=== PATIENT | female | born 1975 | race Two or more races ===

== ENCOUNTER 2018-10-06 13:20 | Emergency (ER) | payer MEDICAID ==
[~2018-10-06] VITALS: Ht 160 cm; Wt 88.5 kg
[~2018-10-06 13:20] MED LIST: ASP81EC PO; FERR-20 PO
[2018-10-06 13:49] VITALS: BP 149/86
== END 2018-10-06 15:41 | disposition home or self-care (01) ==
LOC: ER 13:26
DX: N84.3 Polyp of vulva (principal); L98.8 Other specified disorders of the skin and subcutaneous tissue

== ENCOUNTER 2019-02-02 14:17 | Emergency (ER) | payer MEDICAID ==
[~2019-02-02] VITALS: Ht 160 cm; Wt 135.2 kg
[2019-02-02 15:30] LABS: Basophils # (auto) 0.1 uL; Basophils % (auto) 0.9 % (0.0-2.0); Eosinophils # (auto) 0 uL; Eosinophils % (auto) 0.1 % (0.0-7.0); Hematocrit 47.3 % (36.0-46.0); Hemoglobin 16.1 g/dL (12.2-16.2); Lymphocytes % (auto) 12.4 % (10.0-50.0); Mean Corpuscular Hemoglobin 29.1 pg (28.0-32.0); Mean Corpuscular Hgb Conc. 34.1 g/dL (32.0-36.0); Mean Corpuscular Volume 85.3 fL (80.0-100.0); Monocytes # (auto) 0.4 uL; Monocytes % (auto) 4.7 % (0.0-12.0); Neutrophils # (auto) 6.5 uL; Neutrophils % (auto) 81.9 % (37.0-80.0); Nucleated Red Blood Cells % 0.2 %; Platelet Count (auto) 361 10^3/uL (140-450); Red Blood Cells 5.54 10^6/uL (4.0-5.20); Red Cell Distribution Width 14.2 % (11.8-14.3)
[2019-02-02] MEDS ORDERED: SODIUM CHLORIDE 0.9% 1,000 ML IV ONE (15:30)
[2019-02-02] MEDS ORDERED: ONDANSETRON HCL 4 MG/2 ML VIAL IV ONE (15:30)
[2019-02-02] MEDS ORDERED: MORPHINE SULFATE 4 MG/ML SYR/VIAL IV ONE (15:30)
[2019-02-02 15:41] LABS: Calcium 8.6 mg/dL (8.5-10.1); Potassium 3.6 mmol/L (3.5-5.1)
[2019-02-02 15:43] LABS: BUN/Creatinine Ratio 11.3
[2019-02-02 15:45] LABS: Bilirubin, Total 0.4 mg/dL (0.2-1.0); Total Protein 8.5 g/dL (6.4-8.2)
[2019-02-02 17:42] VITALS: BP 132/70
== END 2019-02-02 19:33 | disposition home or self-care (01) ==
LOC: EDUNIT# 14:17 → ER 14:17
DX: N20.0 Calculus of kidney (principal); K80.20 Calculus of gallbladder without cholecystitis without obstruction; Z79.82 Long term (current) use of aspirin; Z79.899 Other long term (current) drug therapy
CPT/HCPCS: 36415; 74176; 76705; 80053; 85025; 94761; 96374; 96375; 99284; J2270; J2405; J7030

== ENCOUNTER 2019-02-13 11:54 | Emergency (ER) | payer MEDICAID ==
[~2019-02-13] VITALS: Ht 160 cm; Wt 104.3 kg
[2019-02-13] MEDS ORDERED: ACETAMINOPHEN/CODEINE#3 (300/30mg) TAB PO ONE (14:45)
[2019-02-13 15:24] LABS: Urine Bacteria FEW /hpf (None Seen); Urine Blood 1+ /uL (Negative); Urine Mucus FEW (None Seen); Urine Specific Gravity 1.022 (1.001-1.035); Urine WBC 144 /hpf (0 - 5)
[2019-02-13 16:21] VITALS: BP 123/79
== END 2019-02-13 16:22 | disposition home or self-care (01) ==
LOC: ER 11:54
DX: N39.0 Urinary tract infection, site not specified (principal); M77.32 Calcaneal spur, left foot; Z87.442 Personal history of urinary calculi
CPT/HCPCS: 73630; 81001; 81025

== ENCOUNTER 2019-05-31 22:48 | Emergency (ER) | payer MEDICAID ==
[~2019-05-31] VITALS: Ht 160 cm; Wt 92.1 kg
[2019-06-01 03:06] VITALS: BP 155/84
[2019-06-01] MEDS ORDERED: DexAMETHasone SOD PHOS 10MG/1ML VIAL INJ IM ONE (03:45)
[2019-06-01] MEDS ORDERED: cefTRIAXone SOD 1,000 MG VL IM ONE (03:45)
[2019-06-01] MEDS ORDERED: HYDROcodone-ACET 10/325MG TAB PO ONE (03:45)
== END 2019-06-01 04:27 | disposition home or self-care (01) ==
LOC: ER 22:50
DX: J06.9 Acute upper respiratory infection, unspecified (principal); M54.6 Pain in thoracic spine; Z87.442 Personal history of urinary calculi
CPT/HCPCS: 72128; 96372; 99284; J0696; J1100

== ENCOUNTER 2019-06-11 14:04 | Emergency (ER) | payer MEDICAID ==
[~2019-06-11] VITALS: Ht 160 cm; Wt 85.3 kg
[2019-06-11 15:06] VITALS: BP 114/73
[2019-06-11] MEDS ORDERED: diphenhdrAMINE HCL 25 MG CAP PO ONE (17:00)
--- NOTE | 2019-06-11 18:18 | NUR ---
PT DISCHARGED FROM FAST TRACK. NO SIGNS OF DISTRESS NOTED AT TIME OF DISCHARGE.
== END 2019-06-11 17:28 | disposition home or self-care (01) ==
LOC: ER 14:04
DX: L25.9 Unspecified contact dermatitis, unspecified cause (principal); Z90.49 Acquired absence of other specified parts of digestive tract

== ENCOUNTER 2019-07-12 21:29 | Emergency (ER) | payer MEDICAID ==
[~2019-07-12] VITALS: Ht 160 cm; Wt 77.1 kg
[2019-07-12 21:46] VITALS: BP 147/87
[2019-07-13] MEDS ORDERED: ACETAMINOPHEN/CODEINE#3 (300/30mg) TAB PO ONE (00:30)
== END 2019-07-13 00:49 | disposition home or self-care (01) ==
LOC: ER 21:29
DX: S80.812A Abrasion, left lower leg, initial encounter (principal); M79.18 Myalgia, other site; Z79.82 Long term (current) use of aspirin; Z79.899 Other long term (current) drug therapy; Z87.442 Personal history of urinary calculi; Z90.49 Acquired absence of other specified parts of digestive tract; W01.0XXA Fall on same level from slipping, tripping and stumbling without subsequent striking against object, initial encounter; Y93.89 Activity, other specified; Y92.89 Other specified places as the place of occurrence of the external cause; Y99.8 Other external cause status
CPT/HCPCS: 71045; 73590

== ENCOUNTER 2019-09-06 23:49 | Emergency (ER) | payer MEDICAID ==
[~2019-09-06] VITALS: Ht 160 cm; Wt 81.6 kg
[2019-09-07] MEDS ORDERED: methylPREDNISolone SOD SUCC 125 MG/2 ML VL IM ONE (00:15)
[2019-09-07] MEDS ORDERED: ALBUTEROL SULF 2.5 MG/0.5ML(0.5%) NEB SOLN NEB ONE ×2 (00:15→00:45)
[2019-09-07] MEDS ORDERED: IPRATROPIUM BROM 0.5 MG/2.5ML INH SOL NEB ONE ×2 (00:15→00:45)
[2019-09-07 01:40] VITALS: BP 125/75
[2019-09-07] MEDS ORDERED: PRE1T PO (17:21)
[2019-09-07] MEDS ORDERED: ALBU2TAB4 INH (17:21)
== END 2019-09-07 01:42 | disposition home or self-care (01) ==
LOC: ER 23:52
DX: J45.901 Unspecified asthma with (acute) exacerbation (principal); Z90.49 Acquired absence of other specified parts of digestive tract; Z87.442 Personal history of urinary calculi
CPT/HCPCS: 94640; 96372; 99284; J2930; J7644

== ENCOUNTER 2019-09-07 13:42 | Inpatient (IN) | payer MEDICAID ==
[~2019-09-07] VITALS: Ht 160 cm; Wt 85.8 kg
[2019-09-07] MEDS ORDERED: ALBUTEROL SULF 2.5 MG/0.5ML(0.5%) NEB SOLN HHN ONE (14:30)
[2019-09-07] MEDS ORDERED: methylPREDNISolone SOD SUCC 125 MG/2 ML VL IV ONE (14:30)
[2019-09-07] MEDS ORDERED: IPRATROPIUM BROM 0.5 MG/2.5ML INH SOL HHN ONE (14:30)
[2019-09-07] MEDS ORDERED: DOXYCYCLINE 100MG/250ML 250 ML IV ONE (14:45)
[2019-09-07] MEDS ORDERED: TEMAZEPAM 15 MG CAP PO PRN (15:15)
[2019-09-07] MEDS ORDERED: PROMETHAZINE HCL 25 MG/ML 1ML IV PRN (15:15)
[2019-09-07] MEDS ORDERED: ALBUTEROL SULF 2.5 MG/0.5ML(0.5%) NEB SOLN NEB PRN (15:15)
[2019-09-07] MEDS ORDERED: NITROGLYCERIN 0.4 MG SL TAB SL PRN (15:15)
[2019-09-07] MEDS ORDERED: DOXYCYCLINE 100MG/250ML 250 ML IV SCH (15:15)
[2019-09-07] MEDS ORDERED: MORPHINE SULF INJ 2 MG/ML SYRINGE 1ML IV PRN (15:15)
[2019-09-07] MEDS ORDERED: LACTULOSE 20Gm/30ML SOLN PO PRN (15:15)
[2019-09-07] MEDS ORDERED: ACETAMINOPHEN 500 MG TAB PO PRN (15:15)
[2019-09-07 15:20] LABS: Hematocrit 43.2 % (36.0-46.0); Hemoglobin 14.2 g/dL (12.2-16.2); Mean Corpuscular Hemoglobin 28.3 pg (28.0-32.0); Mean Corpuscular Hgb Conc. 32.8 g/dL (32.0-36.0); Mean Corpuscular Volume 86.2 fL (80.0-100.0); Platelet Count (auto) 347 10^3/uL (140-450); Red Blood Cells 5.01 10^6/uL (4.0-5.20); Red Cell Distribution Width 14.2 % (11.8-14.3); White Blood Cell 16.3 10^3/uL (4.4-10.8)
[2019-09-07 15:22] LABS: Band Neutrophils % (manual) 0; Basophils % (manual) 0 (0.0-2.0); Blast Cells 0; Eosinophils % (manual) 0 (0-7); Metamyelocytes % 0; Myelocytes % 0; Promyelocytes % 0; Reactive Lymphocytes 0
[2019-09-07 15:23] LABS: Albumin 3.5 g/dL (3.4-5.0); Calcium 8.8 mg/dL (8.5-10.1); Potassium 3.7 mmol/L (3.5-5.1)
[2019-09-07 15:26] LABS: Lactic Acid w/Reflex 2.9 mmol/L (0.4-2.0)
[2019-09-07 15:27] LABS: BUN/Creatinine Ratio 13.6; Bilirubin, Total 0.4 mg/dL (0.2-1.0); CRP High Sensitivity 0.37 mg/dL (< 0.3); Total Protein 7.9 g/dL (6.4-8.2)
[2019-09-07 15:33] LABS: Lymphocytes % (manual) 7 (10.0-50.0); Monocytes % (manual) 3 (0-12)
[2019-09-07] MEDS ORDERED: ALBU2TAB4 INH (17:21)
[2019-09-07] MEDS ORDERED: PRE1T PO (17:21)
[2019-09-07 17:26] VITALS: BP 119/81
[2019-09-07] MEDS ORDERED: IPRATROPIUM BROM 0.5 MG/2.5ML INH SOL NEB SCH (18:00)
[2019-09-07] MEDS ORDERED: ALBUTEROL SULF 2.5 MG/0.5ML(0.5%) NEB SOLN NEB SCH (18:00)
[2019-09-07 19:46] VITALS: BP 119/81
[2019-09-07] MEDS: SODIUM CHLOR 0.9% PF (SALINE LOCK) 10ML VIAL/SYR IV SCH (22:23)
[2019-09-07] MEDS: DOXYCYCLINE 100MG/250ML 250 ML IV SCH (22:24)
[2019-09-07] MEDS: methylPREDNISolone SOD SUCC 40 MG/ML VL IV SCH (22:24)
[2019-09-07] MEDS: ALBUTEROL SULF HFA 90MCG INH 200DOSE IN SCH (22:27)
[2019-09-08] MEDS: SODIUM CHLORIDE 0.9% 1,000 ML IV SCH ×3 (00:15→20:15)
[2019-09-08] MEDS: traMADol HCL 50 MG TAB PO PRN ×3 (01:24→21:03)
[2019-09-08] MEDS: guaiFENesin-DM 100/10mg/5ml SYR PO PRN ×3 (01:25→19:29)
[2019-09-08 04:00] VITALS: BP 110/60
[2019-09-08 05:00] VITALS: BP 128/70
[2019-09-08] MEDS: SODIUM CHLOR 0.9% PF (SALINE LOCK) 10ML VIAL/SYR IV SCH (06:00)
[2019-09-08] MEDS: ALBUTEROL SULF HFA 90MCG INH 200DOSE IN SCH ×3 (06:58→22:14)
[2019-09-08 09:00] VITALS: BP 138/81
[2019-09-08] MEDS: DOXYCYCLINE 100MG/250ML 250 ML IV SCH ×2 (09:39→22:09)
[2019-09-08] MEDS: ENOXAPARIN SOD 40 MG/0.4 ML SYRINGE SC SCH (09:39)
[2019-09-08] MEDS: methylPREDNISolone SOD SUCC 40 MG/ML VL IV SCH ×2 (09:40→22:09)
[2019-09-08 14:23] LABS: Urine Bacteria NONE SEEN /hpf (None Seen); Urine Blood Negative /uL (Negative); Urine Mucus FEW (None Seen); Urine Specific Gravity 1.023 (1.001-1.035); Urine WBC 1 /hpf (0 - 5)
[2019-09-08] MEDS ORDERED: IOHEXOL 300 MG/ML 100ML BOTTLE IJ ONE (15:01)
[2019-09-08 15:08] LABS: Amphetamine Screen, Urine NEGATIVE (NEGATIVE); Barbiturate Scree,Urine NEGATIVE (NEGATIVE); Benzodiazephine Screen, Urine NEGATIVE (NEGATIVE); Cannabinoid Screen, Urine NEGATIVE (NEGATIVE); Cocaine Screen, Urine NEGATIVE (NEGATIVE); Opiate Scree,Urine NEGATIVE (NEGATIVE); Phencyclidine Screen, Urine NEGATIVE (NEGATIVE)
[2019-09-08 17:07] VITALS: BP 139/83
[2019-09-08 22:00] VITALS: BP 127/71
[2019-09-09] MEDS: SODIUM CHLORIDE 0.9% 1,000 ML IV SCH ×2 (04:18→16:15)
[2019-09-09 05:00] VITALS: BP 134/92
[2019-09-09 06:55] LABS: Basophils # (auto) 0 10 ^3/uL (0-0.2); Basophils % (auto) 0.1 % (0.0-2.0); Eosinophils # (auto) 0 10 ^3/uL (0-0.8); Hematocrit 45.3 % (36.0-46.0); Hemoglobin 15.1 g/dL (12.2-16.2); Lymphocytes # (auto) 0.9 10 ^3/uL (0.4-5.4); Lymphocytes % (auto) 8.7 % (10.0-50.0); Mean Corpuscular Hemoglobin 28.7 pg (28.0-32.0); Mean Corpuscular Hgb Conc. 33.3 g/dL (32.0-36.0); Mean Corpuscular Volume 86.3 fL (80.0-100.0); Monocytes # (auto) 0.2 10 ^3/uL (0-1.3); Monocytes % (auto) 1.7 % (0.0-12.0); Neutrophils # (auto) 9.4 10 ^3/uL (1.6-8.6); Neutrophils % (auto) 89.5 % (37.0-80.0); Nucleated Red Blood Cells % 0.1 %; Platelet Count (auto) 334 10^3/uL (140-450); Red Blood Cells 5.25 10^6/uL (4.0-5.20); Red Cell Distribution Width 14.4 % (11.8-14.3); White Blood Cell 10.5 10^3/uL (4.4-10.8)
[2019-09-09] MEDS: ALBUTEROL SULF HFA 90MCG INH 200DOSE IN SCH ×3 (07:09→22:15)
[2019-09-09 07:11] LABS: Calcium 8.1 mg/dL (8.5-10.1); Potassium 4.2 mmol/L (3.5-5.1)
[2019-09-09 07:24] LABS: BUN/Creatinine Ratio 21.2
[2019-09-09 08:57] VITALS: BP 137/74
[2019-09-09] MEDS: methylPREDNISolone SOD SUCC 40 MG/ML VL IV SCH ×2 (09:36→22:01)
[2019-09-09] MEDS: traMADol HCL 50 MG TAB PO PRN ×2 (09:36→19:48)
[2019-09-09] MEDS: PANTOPRAZOLE 40 MG TAB PO SCH (09:36)
[2019-09-09] MEDS: LORATADINE 10 MG TAB PO SCH (09:36)
[2019-09-09] MEDS: DOXYCYCLINE 100MG/250ML 250 ML IV SCH ×2 (09:37→22:01)
[2019-09-09] MEDS: ENOXAPARIN SOD 40 MG/0.4 ML SYRINGE SC SCH (09:37)
[2019-09-09 13:00] VITALS: BP 138/97
[2019-09-09 16:48] VITALS: BP 136/83
[2019-09-09 21:19] VITALS: BP 133/90
[2019-09-09] MEDS: guaiFENesin-DM 100/10mg/5ml SYR PO PRN (22:02)
[2019-09-10] VITALS (7 sets, daily range): BP systolic 132–161; BP diastolic 78–108
[2019-09-10] MEDS: SODIUM CHLORIDE 0.9% 1,000 ML IV SCH (02:41)
[2019-09-10] MEDS: ALBUTEROL SULF HFA 90MCG INH 200DOSE IN SCH (06:05)
[2019-09-10] MEDS: ENOXAPARIN SOD 40 MG/0.4 ML SYRINGE SC SCH (09:12)
[2019-09-10] MEDS: LORATADINE 10 MG TAB PO SCH (09:12)
[2019-09-10] MEDS: PANTOPRAZOLE 40 MG TAB PO SCH (09:12)
[2019-09-10] MEDS: methylPREDNISolone SOD SUCC 40 MG/ML VL IV SCH ×2 (09:12→17:37)
[2019-09-10] MEDS: DOXYCYCLINE 100MG/250ML 250 ML IV SCH (09:13)
[2019-09-10] MEDS: guaiFENesin-DM 100/10mg/5ml SYR PO PRN (09:13)
[2019-09-10] MEDS: traMADol HCL 50 MG TAB PO PRN (12:15)
[2019-09-10] MEDS ORDERED: ALBUTEROL SULF 2.5 MG/0.5ML(0.5%) NEB SOLN NEB ONE (12:45)
[2019-09-10] MEDS ORDERED: IPRATROPIUM BROM 0.5 MG/2.5ML INH SOL NEB ONE (12:45)
[2019-09-10] MEDS ORDERED: hydrALAZINE HCL 20 MG/ML VL IV PRN (17:15)
[2019-09-10] MEDS ORDERED: ACETYLCYSTEINE 10 %(100MG/ML) SOL 4ML NEB SCH (18:00)
[2019-09-10] MEDS ORDERED: diphenhdrAMINE HCL 50 MG/1 ML VL IV ONE (18:45)
[2019-09-10] MEDS ORDERED: FAMOTIDINE (10MG/ML) 2ML VL IV ONE (18:45)
[2019-09-10] MEDS: ACETYLCYSTEINE 10 %(100MG/ML) SOL 4ML NEB SCH (19:02)
[2019-09-10] MEDS: ALBUTEROL SULF 2.5 MG/0.5ML(0.5%) NEB SOLN NEB SCH (19:02)
[2019-09-10] MEDS: IPRATROPIUM BROM 0.5 MG/2.5ML INH SOL NEB SCH (19:02)
[2019-09-10] MEDS: BUDESONIDE (INHALATION) 0.5 MG/2 ML NEB NEB SCH (19:02)
[2019-09-10] MEDS: DOXYCYCLINE 100 MG TAB/CAP PO SCH (21:25)
[2019-09-11] VITALS (7 sets, daily range): BP systolic 123–137; BP diastolic 75–86
[2019-09-11] MEDS: methylPREDNISolone SOD SUCC 40 MG/ML VL IV SCH ×5 (00:15→23:26)
[2019-09-11] MEDS: ALBUTEROL SULF 2.5 MG/0.5ML(0.5%) NEB SOLN NEB SCH ×5 (00:53→23:58)
[2019-09-11] MEDS: IPRATROPIUM BROM 0.5 MG/2.5ML INH SOL NEB SCH ×5 (00:54→23:58)
[2019-09-11] MEDS: ACETYLCYSTEINE 10 %(100MG/ML) SOL 4ML NEB SCH ×5 (00:54→23:59)
[2019-09-11] MEDS: traMADol HCL 50 MG TAB PO PRN ×2 (05:43→20:40)
[2019-09-11] MEDS: BUDESONIDE (INHALATION) 0.5 MG/2 ML NEB NEB SCH ×2 (05:52→18:27)
[2019-09-11] MEDS: ENOXAPARIN SOD 40 MG/0.4 ML SYRINGE SC SCH (09:38)
[2019-09-11] MEDS: DOXYCYCLINE 100 MG TAB/CAP PO SCH ×2 (09:38→21:28)
[2019-09-11] MEDS: LORATADINE 10 MG TAB PO SCH (09:38)
[2019-09-11] MEDS: PANTOPRAZOLE 40 MG TAB PO SCH (09:38)
[2019-09-12 05:00] VITALS: BP 118/74
[2019-09-12] MEDS: methylPREDNISolone SOD SUCC 40 MG/ML VL IV SCH ×3 (05:46→17:09)
[2019-09-12] MEDS: BUDESONIDE (INHALATION) 0.5 MG/2 ML NEB NEB SCH ×2 (07:13→18:28)
[2019-09-12] MEDS: IPRATROPIUM BROM 0.5 MG/2.5ML INH SOL NEB SCH ×3 (07:13→18:28)
[2019-09-12] MEDS: ALBUTEROL SULF 2.5 MG/0.5ML(0.5%) NEB SOLN NEB SCH ×3 (07:13→18:28)
[2019-09-12] MEDS: ACETYLCYSTEINE 10 %(100MG/ML) SOL 4ML NEB SCH ×3 (07:13→18:27)
[2019-09-12 08:00] VITALS: BP 143/59
[2019-09-12] MEDS: ENOXAPARIN SOD 40 MG/0.4 ML SYRINGE SC SCH (09:34)
[2019-09-12] MEDS: PANTOPRAZOLE 40 MG TAB PO SCH (09:34)
[2019-09-12] MEDS: LORATADINE 10 MG TAB PO SCH (09:34)
[2019-09-12] MEDS: DOXYCYCLINE 100 MG TAB/CAP PO SCH ×2 (09:34→22:13)
[2019-09-12] MEDS ORDERED: guaiFENesin 200 MG/10 ML UD PO PRN (11:30)
[2019-09-12] MEDS: guaiFENesin-DM 100/10mg/5ml SYR PO PRN (11:56)
[2019-09-12 12:00] VITALS: BP 138/95
[2019-09-12 17:00] VITALS: BP 137/64
[2019-09-12 20:20] VITALS: BP 141/99
[2019-09-12 22:00] VITALS: BP 141/99
[2019-09-13] MEDS: ACETYLCYSTEINE 10 %(100MG/ML) SOL 4ML NEB SCH ×4 (00:27→19:40)
[2019-09-13] MEDS: IPRATROPIUM BROM 0.5 MG/2.5ML INH SOL NEB SCH ×4 (00:27→19:40)
[2019-09-13] MEDS: ALBUTEROL SULF 2.5 MG/0.5ML(0.5%) NEB SOLN NEB SCH ×4 (00:27→19:41)
[2019-09-13] MEDS: methylPREDNISolone SOD SUCC 40 MG/ML VL IV SCH ×4 (01:06→21:53)
[2019-09-13 05:30] VITALS: BP 120/87
[2019-09-13 08:00] VITALS: BP 136/89
[2019-09-13] MEDS: BUDESONIDE (INHALATION) 0.5 MG/2 ML NEB NEB SCH ×2 (08:28→19:40)
[2019-09-13] MEDS: traMADol HCL 50 MG TAB PO PRN (09:47)
[2019-09-13] MEDS: DOXYCYCLINE 100 MG TAB/CAP PO SCH (09:47)
[2019-09-13] MEDS: PANTOPRAZOLE 40 MG TAB PO SCH (09:47)
[2019-09-13] MEDS: LORATADINE 10 MG TAB PO SCH (09:47)
[2019-09-13] MEDS: ENOXAPARIN SOD 40 MG/0.4 ML SYRINGE SC SCH (09:47)
[2019-09-13 12:00] VITALS: BP 121/74
[2019-09-13 17:01] VITALS: BP 146/89
[2019-09-13 17:59] VITALS: BP 146/89
[2019-09-13 22:00] VITALS: BP 138/92
[2019-09-14] MEDS: IPRATROPIUM BROM 0.5 MG/2.5ML INH SOL NEB SCH ×4 (00:48→18:09)
[2019-09-14] MEDS: ALBUTEROL SULF 2.5 MG/0.5ML(0.5%) NEB SOLN NEB SCH ×4 (00:48→18:09)
[2019-09-14] MEDS: ACETYLCYSTEINE 10 %(100MG/ML) SOL 4ML NEB SCH ×4 (00:48→18:09)
[2019-09-14 05:00] VITALS: BP 102/73
[2019-09-14] MEDS: methylPREDNISolone SOD SUCC 40 MG/ML VL IV SCH ×2 (06:31→16:10)
[2019-09-14] MEDS: BUDESONIDE (INHALATION) 0.5 MG/2 ML NEB NEB SCH ×2 (07:13→18:09)
[2019-09-14 08:00] VITALS: BP 137/73
[2019-09-14 09:00] VITALS: BP 137/73
[2019-09-14] MEDS: LORATADINE 10 MG TAB PO SCH (10:21)
[2019-09-14] MEDS: PANTOPRAZOLE 40 MG TAB PO SCH (10:21)
[2019-09-14] MEDS: ENOXAPARIN SOD 40 MG/0.4 ML SYRINGE SC SCH (10:21)
[2019-09-14 14:00] VITALS: BP 128/92
[2019-09-14 17:00] VITALS: BP 122/67
[2019-09-14 17:54] VITALS: BP 122/80
== END 2019-09-14 18:45 | disposition home or self-care (01) | DRG 720 ==
LOC: ER 13:42 → TELE 13:43 → TELE-EAST 16:55 → TELE-CENTR 09-08 16:49
PROVIDERS: ADMIT Internal Medicine; ATTEND Internal Medicine
DX: A41.9 Sepsis, unspecified organism (principal); J96.00 Acute respiratory failure, unspecified whether with hypoxia or hypercapnia; J45.901 Unspecified asthma with (acute) exacerbation; E66.9 Obesity, unspecified; Z83.3 Family history of diabetes mellitus; Z87.442 Personal history of urinary calculi; Z90.49 Acquired absence of other specified parts of digestive tract; Z87.74 Personal history of (corrected) congenital malformations of heart and circulatory system; Z79.82 Long term (current) use of aspirin; Z79.899 Other long term (current) drug therapy; Z03.818 Encounter for observation for suspected exposure to other biological agents ruled out; Z68.34 Body mass index [BMI] 34.0-34.9, adult
CPT/HCPCS: 36415; 71045; 71046; 71260; 80048; 80053; 80307; 81001; 82550; 82728; 83036; 83605; 83735; 83880; 84439; 84443; 84484; 85007; 85025; 85027; 85379; 85652; 86141; 87040; 87070; 87804; 87880; 93005; 93306; 94640; 94644; 96365; 96366; 96375; G0378; J3490

== ENCOUNTER 2019-10-22 23:41 | Inpatient (IN) | payer MEDICAID ==
[~2019-10-22] VITALS: Ht 157.5 cm; Wt 91.9 kg
[~2019-10-22 23:41] MED LIST changes: +ALBU2TAB4 INH; +PRE1T PO
[2019-10-23 01:47] LABS: Basophils # (auto) 0.1 10 ^3/uL (0-0.2); Basophils % (auto) 0.6 % (0.0-2.0); Eosinophils # (auto) 0.2 10 ^3/uL (0-0.8); Eosinophils % (auto) 1.6 % (0.0-7.0); Hematocrit 43.4 % (36.0-46.0); Hemoglobin 14.6 g/dL (12.2-16.2); Lymphocytes # (auto) 1.9 10 ^3/uL (0.4-5.4); Lymphocytes % (auto) 15.1 % (10.0-50.0); Mean Corpuscular Hemoglobin 28.6 pg (28.0-32.0); Mean Corpuscular Hgb Conc. 33.6 g/dL (32.0-36.0); Mean Corpuscular Volume 84.9 fL (80.0-100.0); Monocytes # (auto) 0.9 10 ^3/uL (0-1.3); Monocytes % (auto) 7.2 % (0.0-12.0); Neutrophils # (auto) 9.5 10 ^3/uL (1.6-8.6); Neutrophils % (auto) 75.5 % (37.0-80.0); Platelet Count (auto) 336 10^3/uL (140-450); Red Blood Cells 5.12 10^6/uL (4.0-5.20); Red Cell Distribution Width 13.9 % (11.8-14.3); White Blood Cell 12.6 10^3/uL (4.4-10.8)
[2019-10-23 01:53] LABS: Urine Bacteria FEW /hpf (None Seen); Urine Blood 2+ /uL (Negative); Urine Specific Gravity 1.017 (1.001-1.035); Urine WBC 2 /hpf (0 - 5)
[2019-10-23 02:05] LABS: Albumin 3.6 g/dL (3.4-5.0); Calcium 8.6 mg/dL (8.5-10.1); Potassium 4.2 mmol/L (3.5-5.1)
[2019-10-23 02:06] LABS: BUN/Creatinine Ratio 27.6
[2019-10-23 02:09] LABS: Bilirubin, Total 0.5 mg/dL (0.2-1.0); Total Protein 7.7 g/dL (6.4-8.2)
[2019-10-23] MEDS ORDERED: ONDANSETRON HCL 4 MG/2 ML VIAL IV ONE (04:30)
[2019-10-23] MEDS ORDERED: SODIUM CHLORIDE 0.9% 1,000 ML IV ONE ×2 (04:30→06:45)
[2019-10-23] MEDS ORDERED: HYDROmorphone HCL 2 MG/ML VL IV ONE (04:30)
[2019-10-23] MEDS ORDERED: TAMSULOSIN HYDROCHLORIDE 0.4 MG CAP PO ONE (06:45)
[2019-10-23] MEDS ORDERED: KETOROLAC TROMETH 30 MG/ML 1ML VIAL IV ONE (07:30)
[2019-10-23] MEDS ORDERED: ONDANSETRON HCL 4 MG/2 ML VIAL ONE (09:00)
[2019-10-23] MEDS ORDERED: MORPHINE SULF INJ 2 MG/ML SYRINGE 1ML ONE (09:00)
[2019-10-23] MEDS: MORPHINE SULF INJ 2 MG/ML SYRINGE 1ML IV PRN (09:14)
[2019-10-23] MEDS ORDERED: NITROGLYCERIN 0.4 MG SL TAB SL PRN (09:15)
[2019-10-23] MEDS ORDERED: ACETAMINOPHEN 500 MG TAB PO PRN (09:15)
[2019-10-23] MEDS ORDERED: ONDANSETRON HCL 4 MG/2 ML VIAL IV PRN (09:15)
[2019-10-23] MEDS ORDERED: MORPHINE SULF INJ 2 MG/ML SYRINGE 1ML IV PRN (09:15)
[2019-10-23] MEDS ORDERED: HYDROcodone-ACET 5/325MG TAB PO PRN (09:15)
[2019-10-23] MEDS: SODIUM CHLORIDE 0.9% 1,000 ML IV SCH ×2 (09:16→17:23)
[2019-10-23] MEDS: FAMOTIDINE 20 MG TAB PO SCH (10:02)
[2019-10-23 11:23] VITALS: BP 140/70
[2019-10-23 13:00] VITALS: BP 129/67
[2019-10-23] MEDS ORDERED: MANNITOL FTV 25% 12.5 GM/50 ML 50 ML IV ONE (15:15)
[2019-10-23] MEDS: KETOROLAC TROMETH 30 MG/ML 1ML VIAL IV PRN (15:30)
[2019-10-23 16:55] VITALS: BP 141/80
[2019-10-23] MEDS: TAMSULOSIN HYDROCHLORIDE 0.4 MG CAP PO SCH (17:51)
[2019-10-23 22:00] VITALS: BP 144/72
[2019-10-24] MEDS: SODIUM CHLORIDE 0.9% 1,000 ML IV SCH ×4 (01:24→18:33)
[2019-10-24 05:07] VITALS: BP 125/63
[2019-10-24 06:30] LABS: Basophils # (auto) 0 10 ^3/uL (0-0.2); Basophils % (auto) 0.2 % (0.0-2.0); Eosinophils # (auto) 0.2 10 ^3/uL (0-0.8); Eosinophils % (auto) 2.6 % (0.0-7.0); Hematocrit 40.1 % (36.0-46.0); Hemoglobin 13.6 g/dL (12.2-16.2); Lymphocytes # (auto) 1.5 10 ^3/uL (0.4-5.4); Mean Corpuscular Hemoglobin 29.2 pg (28.0-32.0); Mean Corpuscular Hgb Conc. 33.9 g/dL (32.0-36.0); Mean Corpuscular Volume 85.9 fL (80.0-100.0); Monocytes # (auto) 0.6 10 ^3/uL (0-1.3); Monocytes % (auto) 7.4 % (0.0-12.0); Neutrophils # (auto) 5.4 10 ^3/uL (1.6-8.6); Neutrophils % (auto) 70.8 % (37.0-80.0); Nucleated Red Blood Cells % 0.1 %; Platelet Count (auto) 264 10^3/uL (140-450); Red Blood Cells 4.66 10^6/uL (4.0-5.20); Red Cell Distribution Width 14.1 % (11.8-14.3); White Blood Cell 7.7 10^3/uL (4.4-10.8)
[2019-10-24 06:36] LABS: Potassium 3.6 mmol/L (3.5-5.1)
[2019-10-24 06:41] LABS: BUN/Creatinine Ratio 16.2
[2019-10-24] MEDS: FAMOTIDINE 20 MG TAB PO SCH (08:53)
[2019-10-24] MEDS: cefTRIAXone 1GM/50ML D5W 50 ML IV SCH (08:53)
[2019-10-24] MEDS: KETOROLAC TROMETH 30 MG/ML 1ML VIAL IV PRN ×2 (08:54→14:40)
[2019-10-24 09:00] VITALS: BP 138/71
[2019-10-24 13:00] VITALS: BP 125/89
[2019-10-24 17:00] VITALS: BP 149/78
[2019-10-24] MEDS: MORPHINE SULF INJ 2 MG/ML SYRINGE 1ML IV PRN (17:27)
[2019-10-24] MEDS: TAMSULOSIN HYDROCHLORIDE 0.4 MG CAP PO SCH (17:27)
[2019-10-24 21:24] VITALS: BP 158/88
[2019-10-25 05:00] VITALS: BP 123/84
[2019-10-25] MEDS ORDERED: MANNITOL FTV 25% 12.5 GM/50 ML 50 ML IV ONE ×2 (06:00→09:00)
[2019-10-25 06:11] LABS: Calcium 8.1 mg/dL (8.5-10.1); Magnesium 2.2 mg/dL (1.6-2.6); Potassium 3.7 mmol/L (3.5-5.1)
[2019-10-25 06:16] LABS: BUN/Creatinine Ratio 13.6
[2019-10-25 08:00] VITALS: BP_SYST 134; BP_SYST 137; BP_DIAS 77; BP_DIAS 95
[2019-10-25] MEDS: cefTRIAXone 1GM/50ML D5W 50 ML IV SCH (10:13)
[2019-10-25] MEDS: FAMOTIDINE 20 MG TAB PO SCH (10:13)
[2019-10-25] MEDS: MORPHINE SULF INJ 2 MG/ML SYRINGE 1ML IV PRN ×3 (10:39→21:45)
[2019-10-25] MEDS: SODIUM CHLORIDE 0.9% 1,000 ML IV SCH ×2 (11:45→21:45)
[2019-10-25 12:00] VITALS: BP 128/87
[2019-10-25 16:54] VITALS: BP 147/85
[2019-10-25] MEDS: TAMSULOSIN HYDROCHLORIDE 0.4 MG CAP PO SCH (19:55)
[2019-10-25 21:52] VITALS: BP 135/81
[2019-10-26 06:18] VITALS: BP 130/67
[2019-10-26] MEDS: SODIUM CHLORIDE 0.9% 1,000 ML IV SCH (07:45)
[2019-10-26 09:00] VITALS: BP 128/84
[2019-10-26] MEDS: FAMOTIDINE 20 MG TAB PO SCH (09:40)
[2019-10-26] MEDS: cefTRIAXone 1GM/50ML D5W 50 ML IV SCH (09:41)
[2019-10-26 12:38] VITALS: BP 141/81
[2019-10-26 17:09] VITALS: BP 152/89
== END 2019-10-26 17:45 | disposition home or self-care (01) | DRG 465 ==
LOC: ER 23:43 → MERGE 23:44 → TELE 23:44 → WEST WING 10-23 10:36
PROVIDERS: ADMIT Nurse Practitioner Acute Care; ATTEND Internal Medicine
DX: N13.2 Hydronephrosis with renal and ureteral calculous obstruction (principal); I48.91 Unspecified atrial fibrillation; R65.10 Systemic inflammatory response syndrome (SIRS) of non-infectious origin without acute organ dysfunction; K76.0 Fatty (change of) liver, not elsewhere classified; E86.0 Dehydration; E66.9 Obesity, unspecified; J45.909 Unspecified asthma, uncomplicated; Z80.0 Family history of malignant neoplasm of digestive organs; Z87.442 Personal history of urinary calculi; Z90.49 Acquired absence of other specified parts of digestive tract; Z87.74 Personal history of (corrected) congenital malformations of heart and circulatory system; Z83.3 Family history of diabetes mellitus; Z68.37 Body mass index [BMI] 37.0-37.9, adult
CPT/HCPCS: 36415; 74018; 74176; 80048; 80053; 80061; 81001; 81025; 82360; 83036; 83735; 85025; 87086; 96361; 96374; 96375; 96376; G0378; J0696; J1885; J2405

== ENCOUNTER → 2019-12-03 | Emergency (ER) | payer MEDICAID ==
[~2019-12-03] VITALS: Ht 160 cm; Wt 91.2 kg
[~2019-12-03] MED LIST changes: +ALBUAER3 IN; -ASP81EC PO; +ASPI-394 PO; +IBUP200C95 PO; +KETOROLAC TROMETH 30 MG/ML 1ML VIAL IV ONE; +SODIUM CHLORIDE 0.9% 1,000 ML IV ONE
[2019-12-03 14:39] LABS: Basophils # (auto) 0 10 ^3/uL (0-0.2); Basophils % (auto) 0.3 % (0.0-2.0); Eosinophils # (auto) 0.1 10 ^3/uL (0-0.8); Eosinophils % (auto) 1.2 % (0.0-7.0); Hematocrit 48.6 % (36.0-46.0); Lymphocytes # (auto) 0.8 10 ^3/uL (0.4-5.4); Lymphocytes % (auto) 7.1 % (10.0-50.0); Mean Corpuscular Hemoglobin 28.3 pg (28.0-32.0); Mean Corpuscular Hgb Conc. 32.9 g/dL (32.0-36.0); Mean Corpuscular Volume 85.9 fL (80.0-100.0); Monocytes # (auto) 0.7 10 ^3/uL (0-1.3); Monocytes % (auto) 6.5 % (0.0-12.0); Neutrophils # (auto) 9.5 10 ^3/uL (1.6-8.6); Neutrophils % (auto) 84.9 % (37.0-80.0); Nucleated Red Blood Cells % 0.1 %; Platelet Count (auto) 380 10^3/uL (140-450); Red Blood Cells 5.66 10^6/uL (4.0-5.20); Red Cell Distribution Width 14.1 % (11.8-14.3); White Blood Cell 11.3 10^3/uL (4.4-10.8)
[2019-12-03 14:58] LABS: Alanine Aminotransferase 76 U/L (13-56); Albumin 3.6 g/dL (3.4-5.0); Anion Gap 9 (5-15); Aspartate Aminotransferase 37 U/L (15-37); BUN/Creatinine Ratio 11.6; Blood Urea Nitrogen 10 mg/dL (7-18); Calcium 8.5 mg/dL (8.5-10.1); Carbon Dioxide 22 mmol/L (21-32); Chloride 108 mmol/L (98-107); GFR African American 93 mL/min; GFR Non-African American 77 mL/min; Glucose 126 mg/dL (74-106); Potassium 3.6 mmol/L (3.5-5.1); Sodium 139 mmol/L (136-145)
[2019-12-03 15:03] LABS: Alkaline Phosphatase 95 U/L (45-117); Bilirubin, Total 0.6 mg/dL (0.2-1.0); Total Protein 8.3 g/dL (6.4-8.2)
[2019-12-03 16:20] VITALS: BP 126/75
== END | disposition home or self-care (01) ==
LOC: ER 13:16
DX: N20.0 Calculus of kidney (principal); D72.829 Elevated white blood cell count, unspecified; E86.0 Dehydration; D17.71 Benign lipomatous neoplasm of kidney; Z90.49 Acquired absence of other specified parts of digestive tract
CPT/HCPCS: 36415; 71045; 74176; 80053; 84484; 85025; 96361; 96374; 99285; J1885; J7030

== ENCOUNTER 2019-12-04 12:23 | Inpatient (IN) | payer MEDICAID ==
[~2019-12-04] VITALS: Ht 160 cm; Wt 87.0 kg
[~2019-12-04 12:23] MED LIST changes: -ALBUAER3 IN; -IBUP200C95 PO; -KETOROLAC TROMETH 30 MG/ML 1ML VIAL IV ONE; -SODIUM CHLORIDE 0.9% 1,000 ML IV ONE
[2019-12-04] MEDS ORDERED: SODIUM CHLORIDE 0.9% 1,000 ML IVB ONE (12:52)
[2019-12-04] MEDS ORDERED: MORPHINE SULFATE 4 MG/ML SYR/VIAL IV ONE (13:00)
[2019-12-04] MEDS ORDERED: KETOROLAC TROMETH 30 MG/ML 1ML VIAL IV ONE (13:00)
[2019-12-04] MEDS ORDERED: ONDANSETRON HCL 4 MG/2 ML VIAL IV ONE (13:00)
[2019-12-04 13:21] LABS: Basophils # (auto) 0 10 ^3/uL (0-0.2); Basophils % (auto) 0.4 % (0.0-2.0); Eosinophils # (auto) 0.1 10 ^3/uL (0-0.8); Eosinophils % (auto) 1.2 % (0.0-7.0); Hematocrit 43.3 % (36.0-46.0); Hemoglobin 14.6 g/dL (12.2-16.2); Lymphocytes # (auto) 0.6 10 ^3/uL (0.4-5.4); Lymphocytes % (auto) 9.4 % (10.0-50.0); Mean Corpuscular Hemoglobin 28.6 pg (28.0-32.0); Mean Corpuscular Hgb Conc. 33.6 g/dL (32.0-36.0); Mean Corpuscular Volume 85.1 fL (80.0-100.0); Monocytes # (auto) 0.8 10 ^3/uL (0-1.3); Neutrophils # (auto) 4.5 10 ^3/uL (1.6-8.6); Nucleated Red Blood Cells % 0.1 %; Platelet Count (auto) 289 10^3/uL (140-450); Red Blood Cells 5.09 10^6/uL (4.0-5.20); Red Cell Distribution Width 13.6 % (11.8-14.3)
[2019-12-04 13:23] LABS: Urine Bacteria FEW /hpf (None Seen); Urine Blood 2+ /uL (Negative); Urine Specific Gravity 1.008 (1.001-1.035); Urine WBC 7 /hpf (0 - 5)
[2019-12-04 13:33] LABS: Albumin 3.4 g/dL (3.4-5.0); Calcium 7.9 mg/dL (8.5-10.1); Potassium 3.2 mmol/L (3.5-5.1)
[2019-12-04 13:37] LABS: BUN/Creatinine Ratio 12.1; Bilirubin, Total 0.5 mg/dL (0.2-1.0); Total Protein 7.2 g/dL (6.4-8.2)
[2019-12-04] MEDS ORDERED: DOCUSATE SOD 100 MG CAP PO PRN (15:00)
[2019-12-04] MEDS ORDERED: MORPHINE SULF INJ 2 MG/ML SYRINGE 1ML IV PRN (15:00)
[2019-12-04] MEDS ORDERED: NITROGLYCERIN 0.4 MG SL TAB SL PRN (15:00)
[2019-12-04] MEDS ORDERED: ALUM & MAG HYDROX-SIMETH LIQ(MAALOX) 30 ML PO PRN (15:00)
[2019-12-04] MEDS ORDERED: LORazepam 0.5 MG TAB PO PRN (15:00)
[2019-12-04] MEDS ORDERED: CEFTRIAXONE SODIUM 2 GM in D5W 5% 50 ML IV ONE (15:00)
[2019-12-04] MEDS ORDERED: ACETAMINOPHEN 325 MG TAB PO PRN (15:00)
[2019-12-04] MEDS: SOD CHL 0.45% 1,000 ML IV SCH (15:04)
[2019-12-04 15:32] LABS: Cholesterol 119 mg/dL (< 200); HDL Cholesterol 35 mg/dL (40-59); LDL Cholesterol 74 mg/dL (< 100); Triglycerides 129 mg/dL (< 150)
[2019-12-04 16:40] LABS: Alcohol, Urine < 3.0 mg/dL (0-10); Amphetamine Screen, Urine NEGATIVE (NEGATIVE); Barbiturate Scree,Urine NEGATIVE (NEGATIVE); Benzodiazephine Screen, Urine NEGATIVE (NEGATIVE); Cannabinoid Screen, Urine NEGATIVE (NEGATIVE); Cocaine Screen, Urine NEGATIVE (NEGATIVE); Opiate Scree,Urine NEGATIVE (NEGATIVE); Phencyclidine Screen, Urine NEGATIVE (NEGATIVE)
[2019-12-04] MEDS: MORPHINE SULF INJ 2 MG/ML SYRINGE 1ML IV PRN (19:46)
[2019-12-04] MEDS ORDERED: ALBUAER3 IN (19:48)
[2019-12-04] MEDS ORDERED: IBUP200C95 PO (19:49)
[2019-12-04] MEDS ORDERED: POTASSIUM CHL 20MEQ/100ML 100 ML IV ONE (21:00)
[2019-12-04] MEDS: METOPROLOL TARTRATE 25 MG TAB PO SCH (21:58)
[2019-12-04 22:50] VITALS: BP 133/81
--- NOTE | 2019-12-04 22:50 | NUR ---
Telemetry admit from ER Patient admitted to Telemetry unit. Patient oriented to primary RN, unit, room, bed, and unit policies regarding patient care and visiting hours. Patient now on continuous telemetry monitoring, tele box #[id number] and telemetry reading on arrival to unit is sinus rhythm. Patient weighed by bedscale and encouraged to call if they need something. All questions and concerns addressed, patient verbalized understanding. Safety precautions maintained bed is in lowest position and locked, bed rails 2x. Call light and bedside table are within reach.
[2019-12-05] MEDS: MORPHINE SULF INJ 2 MG/ML SYRINGE 1ML IV PRN ×2 (01:24→06:48)
[2019-12-05] MEDS: HYDROcodone-ACET 5/325MG TAB PO PRN ×2 (02:52→12:41)
[2019-12-05 05:00] VITALS: BP 117/70
[2019-12-05 07:22] LABS: Basophils # (auto) 0.1 10 ^3/uL (0-0.2); Basophils % (auto) 1.7 % (0.0-2.0); Eosinophils # (auto) 0 10 ^3/uL (0-0.8); Eosinophils % (auto) 0.8 % (0.0-7.0); Hematocrit 40.6 % (36.0-46.0); Hemoglobin 13.7 g/dL (12.2-16.2); Lymphocytes # (auto) 1.3 10 ^3/uL (0.4-5.4); Mean Corpuscular Hemoglobin 29.2 pg (28.0-32.0); Mean Corpuscular Hgb Conc. 33.8 g/dL (32.0-36.0); Mean Corpuscular Volume 86.3 fL (80.0-100.0); Monocytes # (auto) 0.6 10 ^3/uL (0-1.3); Monocytes % (auto) 11.1 % (0.0-12.0); Neutrophils # (auto) 3.3 10 ^3/uL (1.6-8.6); Neutrophils % (auto) 61.4 % (37.0-80.0); Platelet Count (auto) 249 10^3/uL (140-450); Red Cell Distribution Width 14.1 % (11.8-14.3); White Blood Cell 5.4 10^3/uL (4.4-10.8)
--- NOTE | 2019-12-05 07:23 | NUR ---
End of Shift Note Endorsed care to dayshift RN. At this time patient has no s/s of distress or SOB.
[2019-12-05 07:34] LABS: Albumin 2.8 g/dL (3.4-5.0); Calcium 7.2 mg/dL (8.5-10.1); Magnesium 2.1 mg/dL (1.6-2.6); Potassium 3.2 mmol/L (3.5-5.1)
[2019-12-05 07:37] LABS: BUN/Creatinine Ratio 7.6
[2019-12-05 07:38] LABS: Bilirubin, Total 0.4 mg/dL (0.2-1.0); Phosphorus 2.6 mg/dL (2.5-4.90); Total Protein 6.4 g/dL (6.4-8.2)
[2019-12-05] MEDS: SOD CHL 0.45% 1,000 ML IV SCH (07:44)
[2019-12-05 09:06] VITALS: BP 126/75
[2019-12-05] MEDS: POTASSIUM CHL 20 Meq TABLET PO SCH (11:17)
[2019-12-05] MEDS: ENOXAPARIN SOD 40 MG/0.4 ML SYRINGE SC SCH (11:17)
[2019-12-05] MEDS: METOPROLOL TARTRATE 25 MG TAB PO SCH ×2 (11:17→22:25)
[2019-12-05] MEDS: ONDANSETRON HCL 4 MG/2 ML VIAL IV PRN ×2 (12:41→15:35)
[2019-12-05] MEDS: CEFTRIAXONE SODIUM 2 GM in D5W 5% 50 ML IV SCH (12:42)
[2019-12-05 13:13] VITALS: BP 148/85
--- NOTE | 2019-12-05 15:09 | NUR ---
FAMILY UPDATED SPOKE TO PT'S NIECE. PASSWORD VERIFIED.
[2019-12-05] MEDS ORDERED: MANNITOL FTV 25% 12.5 GM/50 ML 50 ML IV ONE (16:30)
[2019-12-05 17:59] VITALS: BP 118/75
--- NOTE | 2019-12-05 19:00 | NUR ---
Nolen catheter insertion Patient assessed and determined to be in need of nolen catheter. Order obtained from MD. Patient educated on catheter and reason for insertion. All questions answered. Nolen catheter 16 guage Slovak inserted with clean sterile technique. Patient tolerated well.
[2019-12-05 22:00] VITALS: BP 124/70
[2019-12-06] MEDS: SOD CHL 0.45% 1,000 ML IV SCH ×2 (00:49→16:23)
[2019-12-06 05:00] VITALS: BP 118/77
[2019-12-06 06:10] LABS: Potassium 3.4 mmol/L (3.5-5.1)
[2019-12-06 06:16] LABS: BUN/Creatinine Ratio 11.7
[2019-12-06 06:17] LABS: Albumin 3.1 g/dL (3.4-5.0); Bilirubin, Total 0.3 mg/dL (0.2-1.0); Calcium 7.9 mg/dL (8.5-10.1); Total Protein 7.2 g/dL (6.4-8.2)
[2019-12-06 09:00] VITALS: BP 117/70
[2019-12-06] MEDS: CEFTRIAXONE SODIUM 2 GM in D5W 5% 50 ML IV SCH (09:12)
[2019-12-06] MEDS: POTASSIUM CHL 20 Meq TABLET PO SCH (09:12)
[2019-12-06] MEDS: ENOXAPARIN SOD 40 MG/0.4 ML SYRINGE SC SCH (09:13)
[2019-12-06] MEDS: METOPROLOL TARTRATE 25 MG TAB PO SCH ×2 (09:13→22:04)
[2019-12-06] MEDS: HYDROcodone-ACET 5/325MG TAB PO PRN (09:20)
[2019-12-06 11:48] LABS: INR 0.96 (0.9-1.15)
[2019-12-06 13:00] VITALS: BP 134/86
[2019-12-06 17:00] VITALS: BP 111/71
[2019-12-06 22:00] VITALS: BP 113/66
[2019-12-07 05:00] VITALS: BP 114/71
[2019-12-07 07:08] LABS: Potassium 3.5 mmol/L (3.5-5.1)
[2019-12-07 07:13] LABS: Albumin 3.3 g/dL (3.4-5.0); Bilirubin, Direct 0.2 mg/dL (0-0.2); Bilirubin, Total 0.4 mg/dL (0.2-1.0); Total Protein 7.4 g/dL (6.4-8.2)
[2019-12-07] MEDS: cefTRIAXone 1GM/50ML D5W 50 ML IV SCH (08:37)
[2019-12-07] MEDS: POTASSIUM CHL 20 Meq TABLET PO SCH (08:38)
[2019-12-07] MEDS: ENOXAPARIN SOD 40 MG/0.4 ML SYRINGE SC SCH (08:39)
[2019-12-07] MEDS: METOPROLOL TARTRATE 25 MG TAB PO SCH ×2 (08:39→22:00)
[2019-12-07] MEDS: SOD CHL 0.45% 1,000 ML IV SCH (08:40)
[2019-12-07 09:00] VITALS: BP 115/75
[2019-12-07] MEDS: HYDROcodone-ACET 5/325MG TAB PO PRN (12:47)
[2019-12-07 13:00] VITALS: BP 115/69
--- NOTE | 2019-12-07 14:29 | NUR ---
PATIENT TAKEN DOWN TO OR FOR PROCEDURE.
[2019-12-07] MEDS ORDERED: ALBUTEROL SULF 2.5 MG/0.5ML(0.5%) NEB SOLN ONE (15:22)
[2019-12-07] MEDS ORDERED: ceFAZolin 1GM/50ML 50 ML IV ONE (15:24)
[2019-12-07] MEDS ORDERED: ALBUTEROL SULF 2.5 MG/0.5ML(0.5%) NEB SOLN NEB ONE (15:30)
[2019-12-07] MEDS ORDERED: SUCCINYLCHOLINE CHLORIDE 20 MG/ML 10ML VIAL IV ONE (15:32)
[2019-12-07] MEDS ORDERED: MIDAZOLAM HCL 1MG/1ML-2 ML VIAL ONE (15:47)
[2019-12-07] MEDS ORDERED: fentaNYL CITRATE 100 MCG/2 ML VL ONE (15:47)
[2019-12-07] MEDS ORDERED: PROPOFOL 10 MG/ML 20 ML IV ONE (15:47)
[2019-12-07] MEDS ORDERED: fentaNYL CITRATE 100 MCG/2 ML VL IV PRN (16:30)
[2019-12-07] MEDS ORDERED: ONDANSETRON HCL 4 MG/2 ML VIAL IV PRN (16:30)
[2019-12-07] MEDS ORDERED: ePHEDrine SULFATE 50 MG/ML AMP IV PRN (16:30)
[2019-12-07 17:10] VITALS: BP 119/72
--- NOTE | 2019-12-07 17:10 | NUR ---
Patient back from OR. Resting with eyes closes, V/S WNL respiration are even and unlabored. No S/S of distress noted. Patient urine output in nolen is light pink in color. Fall precautions in place. Bed is locked and in lowest position side rails up x2, call light with in reach. Patient instructed to call for assistance prn. Will continue to monitor. B/P119/72 temp 97.8 RR 15, HR 63 O2 Saturation 87% on RA.
[2019-12-07 20:05] VITALS: BP 119/72
--- NOTE | 2019-12-07 21:01 | NUR ---
0. REPORT OBTAINED ON PATIENT. CARE WAS ASSUMED. PATIENT WAS COMFORTABLE AND PLAYED WITH HER PHONE. SHE HOWEVER COMPLAINED OF PAIN ON THE LEFT SIDE OF HER ABDOMEN 8/10. HER QUEZADA CATHETER WAS IN PLACE AND DRAINED BLOOD STAINED URINE. SHE WAS REASSURED AND PAIN MEDICATION WAS TO BE GIVEN.
[2019-12-07] MEDS: ONDANSETRON HCL 4 MG/2 ML VIAL IV PRN (21:11)
[2019-12-07] MEDS: MORPHINE SULF INJ 2 MG/ML SYRINGE 1ML IV PRN (21:12)
[2019-12-07 23:19] VITALS: BP 120/69
--- NOTE | 2019-12-08 01:59 | NUR ---
PATIENT SLEEPING AT THIS TIME.
[2019-12-08] MEDS: SOD CHL 0.45% 1,000 ML IV SCH (02:08)
--- NOTE | 2019-12-08 05:33 | NUR ---
0500; TOTAL URINE OUPUT VISA UETHRAL CATHETER: 1420. PINK COLOR. Addendum: 12/08/19 at 0541 by MARK PRINCE RN RN TOTAL URINE OUTPUT VIA URETHRAL CATHETER: 1420MLS. PINK COLOR
[2019-12-08 05:41] VITALS: BP 114/62
[2019-12-08 06:15] LABS: Basophils # (auto) 0 10 ^3/uL (0-0.2); Basophils % (auto) 0.6 % (0.0-2.0); Eosinophils # (auto) 0.2 10 ^3/uL (0-0.8); Eosinophils % (auto) 2.8 % (0.0-7.0); Hematocrit 44.4 % (36.0-46.0); Hemoglobin 15.1 g/dL (12.2-16.2); Lymphocytes # (auto) 1.7 10 ^3/uL (0.4-5.4); Lymphocytes % (auto) 29.5 % (10.0-50.0); Mean Corpuscular Hemoglobin 29.1 pg (28.0-32.0); Mean Corpuscular Hgb Conc. 34.1 g/dL (32.0-36.0); Mean Corpuscular Volume 85.5 fL (80.0-100.0); Monocytes # (auto) 0.9 10 ^3/uL (0-1.3); Monocytes % (auto) 14.6 % (0.0-12.0); Neutrophils # (auto) 3.1 10 ^3/uL (1.6-8.6); Neutrophils % (auto) 52.5 % (37.0-80.0); Nucleated Red Blood Cells % 0.7 %; Platelet Count (auto) 279 10^3/uL (140-450); Red Blood Cells 5.19 10^6/uL (4.0-5.20); Red Cell Distribution Width 13.8 % (11.8-14.3); White Blood Cell 5.8 10^3/uL (4.4-10.8)
[2019-12-08 06:32] LABS: Potassium 3.7 mmol/L (3.5-5.1)
[2019-12-08 06:36] LABS: BUN/Creatinine Ratio 10.9; Calcium 8.3 mg/dL (8.5-10.1); Magnesium 2.1 mg/dL (1.6-2.6)
[2019-12-08] MEDS: ALBUTEROL SULF 2.5 MG/0.5ML(0.5%) NEB SOLN NEB SCH ×2 (06:41→12:20)
[2019-12-08 06:45] LABS: Bilirubin, Total 0.6 mg/dL (0.2-1.0); Total Protein 7.1 g/dL (6.4-8.2)
--- NOTE | 2019-12-08 07:15 | NUR ---
Opening Shift Note: Assumed care of patient. Patient asleep at this time. No S/S of distress/SOB or pain. Bed in lowest locked position, side rails up x 2, call light within reach. Patient will be instructed on POC and to call for assist PRN, will continue to monitor for changes Q1hr and PRN.
[2019-12-08 09:00] VITALS: BP 124/78
[2019-12-08] MEDS: cefTRIAXone 1GM/50ML D5W 50 ML IV SCH (09:06)
[2019-12-08] MEDS: ENOXAPARIN SOD 40 MG/0.4 ML SYRINGE SC SCH (09:07)
[2019-12-08] MEDS: POTASSIUM CHL 20 Meq TABLET PO SCH (09:07)
[2019-12-08] MEDS: METOPROLOL TARTRATE 25 MG TAB PO SCH (09:07)
--- NOTE | 2019-12-08 10:43 | NUR ---
Nolen catheter dc'd: Order to discontinue Nolen catheter. Nolen dc'd with clean technique following deflation of balloon. Patient tolerated well with no complaints of pain. 650 urine in nolen at time of DC. Continue care.
[2019-12-08] MEDS ORDERED: NITR-87 PO (11:18)
[2019-12-08 13:00] VITALS: BP 117/73
--- NOTE | 2019-12-08 13:47 | NUR ---
PATIENT VOIDED FOR FIRST TIME SINCE QUEZADA CATHETER REMOVAL.
[2019-12-08 14:09] VITALS: BP 117/73
[2019-12-10 11:14] LABS: Hepatitis B Surface Antibody Negative
[2019-12-10 11:48] LABS: Hepatitis A Total Antibody Positive
[2019-12-10 13:39] LABS: Hepatitis B Core Total AB Negative; Hepatitis B Surface Antigen Negative (Negative)
[2019-12-10 13:40] LABS: Hepatitis C Antibody Negative (Negative)
== END 2019-12-08 14:44 | disposition home or self-care (01) | DRG 465 ==
LOC: ER 12:23 → TELE 12:24 → TELE-WESTW 22:48
PROVIDERS: ADMIT Hospitalist; ATTEND Internal Medicine
PROC: 0TF4XZZ Fragmentation in Left Kidney Pelvis, External Approach (ICD-10-PCS; principal; 2019-12-07 15:38)
DX: N20.2 Calculus of kidney with calculus of ureter (principal); E87.6 Hypokalemia; I10 Essential (primary) hypertension; K76.0 Fatty (change of) liver, not elsewhere classified; Z90.49 Acquired absence of other specified parts of digestive tract; E66.01 Morbid (severe) obesity due to excess calories; E78.5 Hyperlipidemia, unspecified; Z87.442 Personal history of urinary calculi; J45.909 Unspecified asthma, uncomplicated; Z80.0 Family history of malignant neoplasm of digestive organs; Z83.3 Family history of diabetes mellitus; Z85.07 Personal history of malignant neoplasm of pancreas; Z88.8 Allergy status to other drugs, medicaments and biological substances; N10 Acute pyelonephritis; Z68.35 Body mass index [BMI] 35.0-35.9, adult
CPT/HCPCS: 36415; 71045; 74176; 76700; 80053; 80061; 80076; 80307; 81001; 83036; 83735; 84100; 84132; 84484; 84702; 85025; 85610; 86704; 86706; 86708; 86803; 87040; 87081; 87086; 87340; 94640; 96361; 96374; G0378; J0330; J0690; J0696; J1885; J2250; J2405; J2704; J3480; J7060

== ENCOUNTER → 2019-12-18 | Emergency (ER) | payer MEDICAID ==
[~2019-12-18] VITALS: Ht 160 cm; Wt 89.8 kg
[~2019-12-18] MED LIST changes: -ALBU2TAB4 INH; +ALBUAER3 IN; -ASPI-394 PO; -FERR-20 PO; +IBUP200C95 PO; +KETOROLAC TROMETH 60MG/2ML VIAL IM ONE; +NITR-87 PO; -PRE1T PO
[2019-12-18 17:06] LABS: Urine Bacteria NONE SEEN /hpf (None Seen); Urine Blood 1+ /uL (Negative); Urine Mucus FEW (None Seen); Urine WBC 1 /hpf (0 - 5)
[2019-12-18 17:34] LABS: Basophils # (auto) 0 10 ^3/uL (0-0.2); Basophils % (auto) 0.5 % (0.0-2.0); Eosinophils # (auto) 0.2 10 ^3/uL (0-0.8); Eosinophils % (auto) 2.6 % (0.0-7.0); Hematocrit 40.4 % (36.0-46.0); Hemoglobin 13.3 g/dL (12.2-16.2); Lymphocytes # (auto) 1.9 10 ^3/uL (0.4-5.4); Lymphocytes % (auto) 24.4 % (10.0-50.0); Mean Corpuscular Hemoglobin 28.4 pg (28.0-32.0); Mean Corpuscular Hgb Conc. 32.9 g/dL (32.0-36.0); Mean Corpuscular Volume 86.2 fL (80.0-100.0); Monocytes # (auto) 0.7 10 ^3/uL (0-1.3); Monocytes % (auto) 8.6 % (0.0-12.0); Neutrophils # (auto) 4.9 10 ^3/uL (1.6-8.6); Neutrophils % (auto) 63.9 % (37.0-80.0); Platelet Count (auto) 388 10^3/uL (140-450); Red Blood Cells 4.69 10^6/uL (4.0-5.20); Red Cell Distribution Width 13.7 % (11.8-14.3); White Blood Cell 7.6 10^3/uL (4.4-10.8)
[2019-12-18 17:58] LABS: Albumin 3.4 g/dL (3.4-5.0); Calcium 8.6 mg/dL (8.5-10.1); Potassium 3.7 mmol/L (3.5-5.1)
[2019-12-18 18:02] LABS: BUN/Creatinine Ratio 12.1; Bilirubin, Total 0.3 mg/dL (0.2-1.0); Total Protein 7.1 g/dL (6.4-8.2)
[2019-12-18 20:12] VITALS: BP 139/64
== END | disposition home or self-care (01) ==
LOC: ER 15:27
DX: R33.9 Retention of urine, unspecified (principal); N20.0 Calculus of kidney; J45.909 Unspecified asthma, uncomplicated; Z90.49 Acquired absence of other specified parts of digestive tract; Z87.442 Personal history of urinary calculi; Z79.899 Other long term (current) drug therapy; Z88.8 Allergy status to other drugs, medicaments and biological substances
CPT/HCPCS: 36415; 51702; 74176; 80053; 81001; 85025; 96372; 99284; J1885

== ENCOUNTER 2020-02-28 11:49 | Emergency (ER) | payer MEDICAID ==
[~2020-02-28] VITALS: Ht 160 cm; Wt 94.8 kg
[~2020-02-28 11:49] MED LIST changes: -KETOROLAC TROMETH 60MG/2ML VIAL IM ONE
[2020-02-28 11:56] VITALS: BP 140/76
== END 2020-02-28 13:18 | disposition home or self-care (01) ==
LOC: ER 11:49
DX: M77.9 Enthesopathy, unspecified (principal)
CPT/HCPCS: 73630

== ENCOUNTER 2020-03-24 21:02 | Emergency (ER) | payer MEDICAID ==
[~2020-03-24] VITALS: Ht 157.5 cm; Wt 68.0 kg
[2020-03-25 01:15] VITALS: BP 120/72
== END 2020-03-25 01:27 | disposition home or self-care (01) ==
LOC: ER 21:03
DX: B37.3 Candidiasis of vulva and vagina (principal); N36.8 Other specified disorders of urethra

== ENCOUNTER 2020-10-25 00:17 | Emergency (ER) | payer MEDICAID ==
[~2020-10-25] VITALS: Ht 160 cm; Wt 86.6 kg
[2020-10-25 01:11] LABS: Basophils # (auto) 0.1 10 ^3/uL (0-0.2); Basophils % (auto) 0.6 % (0.0-2.0); Eosinophils # (auto) 0.2 10 ^3/uL (0-0.8); Eosinophils % (auto) 2.1 % (0.0-7.0); Hematocrit 43.3 % (36.0-46.0); Hemoglobin 14.6 g/dL (12.2-16.2); Lymphocytes # (auto) 2.4 10 ^3/uL (0.4-5.4); Mean Corpuscular Hemoglobin 28.4 pg (28.0-32.0); Mean Corpuscular Hgb Conc. 33.6 g/dL (32.0-36.0); Mean Corpuscular Volume 84.6 fL (80.0-100.0); Monocytes # (auto) 0.6 10 ^3/uL (0-1.3); Monocytes % (auto) 7.4 % (0.0-12.0); Neutrophils # (auto) 5.3 10 ^3/uL (1.6-8.6); Neutrophils % (auto) 61.9 % (37.0-80.0); Nucleated Red Blood Cells % 0.1 %; Red Blood Cells 5.12 10^6/uL (4.0-5.20); Red Cell Distribution Width 14.1 % (11.8-14.3); White Blood Cell 8.6 10^3/uL (4.4-10.8)
[2020-10-25 01:26] LABS: INR 0.92 (0.9-1.15); Partial Thromboplastin Time 27.7 sec (23.0-31.2)
[2020-10-25 01:28] LABS: Albumin 3.3 g/dL (3.4-5.0); BUN/Creatinine Ratio 17.2; Calcium 8.3 mg/dL (8.5-10.1); Potassium 3.8 mmol/L (3.5-5.1)
[2020-10-25 01:31] LABS: Bilirubin, Total 0.3 mg/dL (0.2-1.0); Total Protein 7.5 g/dL (6.4-8.2)
[2020-10-25 02:51] LABS: Urine WBC None Seen /hpf (0 - 5)
[2020-10-25 03:25] LABS: Urine Bacteria FEW /hpf (None Seen); Urine Blood TRACE /uL (Negative); Urine Mucus FEW (None Seen); Urine Specific Gravity 1.017 (1.001-1.035)
[2020-10-25] MEDS ORDERED: ACETAMINOPHEN 325 MG TAB PO ONE (05:45)
[2020-10-25 14:01] VITALS: BP 134/71
== END 2020-10-25 14:30 | disposition home or self-care (01) ==
LOC: ER 00:17
DX: R33.9 Retention of urine, unspecified (principal); N83.201 Unspecified ovarian cyst, right side; D25.1 Intramural leiomyoma of uterus; I10 Essential (primary) hypertension; K76.0 Fatty (change of) liver, not elsewhere classified; M54.5 Low back pain; N31.9 Neuromuscular dysfunction of bladder, unspecified; E46 Unspecified protein-calorie malnutrition; J45.909 Unspecified asthma, uncomplicated; Z68.33 Body mass index [BMI] 33.0-33.9, adult; Z90.49 Acquired absence of other specified parts of digestive tract; Z79.1 Long term (current) use of non-steroidal anti-inflammatories (NSAID); Z79.899 Other long term (current) drug therapy; Z88.8 Allergy status to other drugs, medicaments and biological substances
CPT/HCPCS: 36415; 51702; 72131; 74176; 76856; 80053; 81001; 84702; 85025; 85049; 85610; 85730

== ENCOUNTER 2021-01-27 08:57 | Emergency (ER) | payer MEDICAID ==
[~2021-01-27] VITALS: Ht 165.1 cm; Wt 85.7 kg
[2021-01-27 09:47] LABS: Urine Bacteria FEW /hpf (None Seen); Urine Blood 2+ /uL (Negative); Urine Hyaline Cast FEW /lpf (0 - 2); Urine WBC 89 /hpf (0 - 5)
[2021-01-27 10:01] LABS: Basophils # (auto) 0 10 ^3/uL (0-0.2); Basophils % (auto) 0.5 % (0.0-2.0); Eosinophils # (auto) 0.1 10 ^3/uL (0-0.8); Eosinophils % (auto) 1.5 % (0.0-7.0); Hematocrit 44.8 % (36.0-46.0); Hemoglobin 14.9 g/dL (12.2-16.2); Lymphocytes # (auto) 1.6 10 ^3/uL (0.4-5.4); Lymphocytes % (auto) 24.2 % (10.0-50.0); Mean Corpuscular Hemoglobin 28.6 pg (28.0-32.0); Mean Corpuscular Hgb Conc. 33.3 g/dL (32.0-36.0); Mean Corpuscular Volume 85.7 fL (80.0-100.0); Monocytes # (auto) 0.4 10 ^3/uL (0-1.3); Monocytes % (auto) 6.4 % (0.0-12.0); Neutrophils # (auto) 4.5 10 ^3/uL (1.6-8.6); Neutrophils % (auto) 67.4 % (37.0-80.0); Red Blood Cells 5.22 10^6/uL (4.0-5.20); Red Cell Distribution Width 14.1 % (11.8-14.3); White Blood Cell 6.7 10^3/uL (4.4-10.8)
[2021-01-27 10:12] LABS: Albumin 3.6 g/dL (3.4-5.0); Anion Gap 5 (5-15); Blood Urea Nitrogen 15 mg/dL (7-18); Calcium 8.7 mg/dL (8.5-10.1); Carbon Dioxide 29 mmol/L (21-32); Chloride 105 mmol/L (98-107); Glucose 117 mg/dL (74-106); Lipase 127 U/L (73-393); Potassium 3.7 mmol/L (3.5-5.1); Sodium 139 mmol/L (136-145)
[2021-01-27 10:18] LABS: Alanine Aminotransferase 82 U/L (13-56); Alkaline Phosphatase 77 U/L (45-117); Aspartate Aminotransferase 29 U/L (15-37); BUN/Creatinine Ratio 17.6; Bilirubin, Total 0.5 mg/dL (0.2-1.0); GFR African American 93 mL/min; GFR Non-African American 77 mL/min; Total Protein 7.8 g/dL (6.4-8.2)
[2021-01-27 12:30] VITALS: BP 136/79
== END 2021-01-27 11:21 | disposition home or self-care (01) ==
LOC: ER 08:57
DX: N20.0 Calculus of kidney (principal); N39.0 Urinary tract infection, site not specified; J45.909 Unspecified asthma, uncomplicated; Z90.49 Acquired absence of other specified parts of digestive tract; Z79.1 Long term (current) use of non-steroidal anti-inflammatories (NSAID); Z79.899 Other long term (current) drug therapy; Z88.8 Allergy status to other drugs, medicaments and biological substances; Z20.822 Contact with and (suspected) exposure to COVID-19
CPT/HCPCS: 36415; 71046; 74176; 80053; 81001; 83690; 84484; 85025; 87426; 93005

== ENCOUNTER 2021-02-21 22:04 | Inpatient (IN) | payer MEDICAID ==
[~2021-02-21] VITALS: Ht 160 cm; Wt 90.0 kg
[2021-02-21 23:33] LABS: Basophils # (auto) 0 10 ^3/uL (0-0.2); Basophils % (auto) 0.1 % (0.0-2.0); Eosinophils # (auto) 0.1 10 ^3/uL (0-0.8); Eosinophils % (auto) 0.4 % (0.0-7.0); Hematocrit 44.5 % (36.0-46.0); Hemoglobin 14.9 g/dL (12.2-16.2); Lymphocytes % (auto) 6.3 % (10.0-50.0); Mean Corpuscular Hemoglobin 28.4 pg (28.0-32.0); Mean Corpuscular Hgb Conc. 33.6 g/dL (32.0-36.0); Mean Corpuscular Volume 84.5 fL (80.0-100.0); Monocytes # (auto) 0.9 10 ^3/uL (0-1.3); Monocytes % (auto) 5.8 % (0.0-12.0); Neutrophils # (auto) 13.5 10 ^3/uL (1.6-8.6); Neutrophils % (auto) 87.4 % (37.0-80.0); Nucleated Red Blood Cells % 0.1 %; Red Blood Cells 5.27 10^6/uL (4.0-5.20); Red Cell Distribution Width 13.9 % (11.8-14.3); White Blood Cell 15.5 10^3/uL (4.4-10.8)
[2021-02-21 23:55] LABS: Calcium 8.7 mg/dL (8.5-10.1); Potassium 4.3 mmol/L (3.5-5.1)
[2021-02-21 23:59] LABS: Albumin 3.6 g/dL (3.4-5.0); BUN/Creatinine Ratio 17.6
[2021-02-22 00:27] LABS: Bilirubin, Total 0.6 mg/dL (0.2-1.0)
[2021-02-22 01:54] LABS: Urine Bacteria FEW /hpf (None Seen); Urine Blood 2+ /uL (Negative); Urine Mucus FEW (None Seen); Urine Specific Gravity 1.018 (1.001-1.035); Urine WBC 3 /hpf (0 - 5)
[2021-02-22 03:54] LABS: Basophils # (auto) 0.2 10 ^3/uL (0-0.2); Basophils % (auto) 1.3 % (0.0-2.0); Eosinophils # (auto) 0 10 ^3/uL (0-0.8); Eosinophils % (auto) 0.2 % (0.0-7.0); Hematocrit 44.3 % (36.0-46.0); Hemoglobin 15.2 g/dL (12.2-16.2); Lymphocytes # (auto) 0.9 10 ^3/uL (0.4-5.4); Lymphocytes % (auto) 5.2 % (10.0-50.0); Mean Corpuscular Hemoglobin 29.3 pg (28.0-32.0); Mean Corpuscular Hgb Conc. 34.4 g/dL (32.0-36.0); Mean Corpuscular Volume 85.2 fL (80.0-100.0); Monocytes # (auto) 0.6 10 ^3/uL (0-1.3); Monocytes % (auto) 3.4 % (0.0-12.0); Neutrophils # (auto) 15.9 10 ^3/uL (1.6-8.6); Neutrophils % (auto) 89.9 % (37.0-80.0); Nucleated Red Blood Cells % 0.1 %; Red Cell Distribution Width 13.9 % (11.8-14.3); White Blood Cell 17.7 10^3/uL (4.4-10.8)
[2021-02-22 03:57] LABS: BUN/Creatinine Ratio 16.3; Calcium 8.5 mg/dL (8.5-10.1); Potassium 4.3 mmol/L (3.5-5.1)
[2021-02-22] MEDS ORDERED: SODIUM CHLORIDE 0.9% 1,000 ML IV ONE (05:30)
[2021-02-22] MEDS ORDERED: diazePAM 5 MG TAB PO ONE (05:30)
[2021-02-22] MEDS ORDERED: ACETAMINOPHEN 325 MG TAB PO ONE (05:45)
[2021-02-22] MEDS ORDERED: AZITHROMYCIN 500MG/ 250ML 250 ML IV ONE ×2 (08:30→12:00)
[2021-02-22] MEDS: cefTRIAXone 1GM/50ML D5W 50 ML IV ONE ×2 (09:23→10:00)
[2021-02-22] MEDS ORDERED: MORPHINE SULFATE INJECTION 2 MG/ML SYRG IV PRN ×2 (09:30→13:15)
[2021-02-22] MEDS ORDERED: NITROGLYCERIN 0.4 MG SL TAB SL PRN ×2 (09:30→13:15)
[2021-02-22] MEDS ORDERED: ACETAMINOPHEN 500 MG TAB PO PRN (09:30)
[2021-02-22] MEDS ORDERED: ALBUTEROL SULF HFA 90MCG INH 200DOSE IN PRN (09:30)
[2021-02-22] MEDS ORDERED: REMDESIVIR PER PHARMACY 0 ML IV SCH (09:30)
[2021-02-22] MEDS ORDERED: BUDESONIDE (INHALATION) 180 MCG IH IN SCH (10:00)
[2021-02-22] MEDS ORDERED: IVERMECTIN 3 MG TAB PO SCH (10:00)
[2021-02-22] MEDS ORDERED: DexAMETHasone SOD PHOS 10MG/1ML VIAL INJ IV SCH (10:00)
[2021-02-22] MEDS ORDERED: ENOXAPARIN SOD 40 MG/0.4 ML SYRINGE SC SCH (10:00)
[2021-02-22] MEDS ORDERED: DOXYCYCLINE 100MG/250ML 250 ML IV SCH (10:00)
[2021-02-22] MEDS ORDERED: ASCORBIC ACID 1,000 MG TAB PO SCH (10:00)
[2021-02-22] MEDS ORDERED: CHOLECALCIFEROL (VITD3) 2,000 UNIT CAP/TAB PO SCH (10:00)
[2021-02-22 10:21] LABS: Basophils # (auto) 0 10 ^3/uL (0-0.2); Basophils % (auto) 0.4 % (0.0-2.0); Eosinophils # (auto) 0 10 ^3/uL (0-0.8); Hematocrit 44.4 % (36.0-46.0); Hemoglobin 14.9 g/dL (12.2-16.2); Lymphocytes # (auto) 1.2 10 ^3/uL (0.4-5.4); Lymphocytes % (auto) 9.8 % (10.0-50.0); Mean Corpuscular Hemoglobin 28.3 pg (28.0-32.0); Mean Corpuscular Hgb Conc. 33.5 g/dL (32.0-36.0); Mean Corpuscular Volume 84.4 fL (80.0-100.0); Monocytes # (auto) 0.5 10 ^3/uL (0-1.3); Monocytes % (auto) 4.5 % (0.0-12.0); Neutrophils # (auto) 10.1 10 ^3/uL (1.6-8.6); Neutrophils % (auto) 85.3 % (37.0-80.0); Red Blood Cells 5.27 10^6/uL (4.0-5.20); Red Cell Distribution Width 13.9 % (11.8-14.3); White Blood Cell 11.9 10^3/uL (4.4-10.8)
[2021-02-22 10:34] LABS: Albumin 3.5 g/dL (3.4-5.0); Calcium 8.5 mg/dL (8.5-10.1); Magnesium 2.3 mg/dL (1.6-2.6); Potassium 3.5 mmol/L (3.5-5.1)
[2021-02-22 10:42] LABS: BUN/Creatinine Ratio 12.5; Bilirubin, Total 0.6 mg/dL (0.2-1.0); CRP High Sensitivity 8.93 mg/dL (< 0.3)
[2021-02-22 11:32] LABS: Thyroid Stimulating Hormone 1.21 uIU/mL (0.358-3.74)
[2021-02-22] MEDS ORDERED: ALBUTEROL SULF 2.5 MG/0.5ML(0.5%) NEB SOLN NEB ONE (12:00)
[2021-02-22] MEDS ORDERED: CEFEPIME 1 GM in SODIUM CHL 0.9% 50 ML IV ONE (12:00)
[2021-02-22] MEDS ORDERED: ALBUTEROL SULF 2.5 MG/0.5ML(0.5%) NEB SOLN ONE (12:02)
[2021-02-22] MEDS ORDERED: LABETALOL HCL 5 MG/ML 4ML SYRINGE IV PRN (13:00)
[2021-02-22] MEDS ORDERED: LABETALOL HCL 5 MG/ML 4ML SYRINGE IV ONE (13:00)
[2021-02-22] MEDS ORDERED: ACETAMINOPHEN 325 MG TAB PO PRN (13:15)
[2021-02-22] MEDS ORDERED: DOCUSATE SOD 100 MG CAP PO PRN (13:15)
[2021-02-22] MEDS ORDERED: ALUM & MAG HYDROX-SIMETH LIQ(MAALOX) 30 ML PO PRN (13:15)
[2021-02-22] MEDS ORDERED: ONDANSETRON HCL 4 MG/2 ML VIAL IV PRN (13:15)
[2021-02-22 13:37] LABS: Cholesterol 151 mg/dL (< 200)
[2021-02-22 13:42] LABS: HDL Cholesterol 44 mg/dL (40-59); LDL Cholesterol 103 mg/dL (< 100); Triglycerides 94 mg/dL (< 150)
[2021-02-22] MEDS: methylPREDNISolone SOD SUCC 40 MG/ML VL IV SCH ×2 (14:00→21:24)
[2021-02-22] MEDS: CEFEPIME 1 GM in SODIUM CHL 0.9% 50 ML IV SCH ×2 (14:00→21:25)
[2021-02-22] MEDS ORDERED: IPRATROPIUM BROM 0.5 MG/2.5ML INH SOL NEB SCH (14:00)
[2021-02-22] MEDS: LACTATED RINGER'S 1,000 ML IV SCH (16:30)
[2021-02-22] MEDS: HYDROcodone-ACET 5/325MG TAB PO PRN (16:32)
[2021-02-22 17:00] VITALS: BP 123/74
[2021-02-22 20:00] VITALS: BP 111/56
[2021-02-22] MEDS: IPRATROPIUM BROM 0.5 MG/2.5ML INH SOL NEB PRN (20:01)
[2021-02-22] MEDS: ALBUTEROL SULF 2.5 MG/0.5ML(0.5%) NEB SOLN NEB PRN (20:02)
[2021-02-22] MEDS: BUDESONIDE (INHALATION) 0.5 MG/2 ML NEB NEB SCH (20:02)
[2021-02-22 20:44] VITALS: BP 124/76
[2021-02-22] MEDS: MORPHINE SULFATE INJECTION 2 MG/ML SYRG IV PRN (20:56)
[2021-02-22] MEDS: FAMOTIDINE (10MG/ML) 2ML VL IV SCH (21:24)
[2021-02-22 22:00] VITALS: BP 111/56
[2021-02-23 05:00] VITALS: BP 99/64
[2021-02-23] MEDS: CEFEPIME 1 GM in SODIUM CHL 0.9% 50 ML IV SCH (06:09)
[2021-02-23] MEDS: methylPREDNISolone SOD SUCC 40 MG/ML VL IV SCH ×3 (06:10→21:29)
[2021-02-23 06:56] LABS: INR 0.99 (0.9-1.15); Partial Thromboplastin Time 29.2 sec (23.6-33.0)
[2021-02-23 07:12] LABS: Basophils # (auto) 0 10 ^3/uL (0-0.2); Basophils % (auto) 0.1 % (0.0-2.0); Eosinophils # (auto) 0 10 ^3/uL (0-0.8); Hematocrit 41.9 % (36.0-46.0); Hemoglobin 14.6 g/dL (12.2-16.2); Lymphocytes # (auto) 0.8 10 ^3/uL (0.4-5.4); Lymphocytes % (auto) 7.5 % (10.0-50.0); Mean Corpuscular Hemoglobin 29.8 pg (28.0-32.0); Mean Corpuscular Volume 85.2 fL (80.0-100.0); Monocytes # (auto) 0.2 10 ^3/uL (0-1.3); Monocytes % (auto) 1.7 % (0.0-12.0); Neutrophils # (auto) 9.2 10 ^3/uL (1.6-8.6); Neutrophils % (auto) 90.7 % (37.0-80.0); Nucleated Red Blood Cells % 0.1 %; Red Blood Cells 4.91 10^6/uL (4.0-5.20); Red Cell Distribution Width 14.1 % (11.8-14.3); White Blood Cell 10.1 10^3/uL (4.4-10.8)
[2021-02-23 07:14] LABS: Albumin 3.4 g/dL (3.4-5.0); Anion Gap 6 (5-15); Blood Urea Nitrogen 9 mg/dL (7-18); Carbon Dioxide 25 mmol/L (21-32); Chloride 107 mmol/L (98-107); Glucose 155 mg/dL (74-106); Magnesium 2.2 mg/dL (1.6-2.6); Sodium 138 mmol/L (136-145)
[2021-02-23 07:20] LABS: Alanine Aminotransferase 71 U/L (13-56); Alkaline Phosphatase 81 U/L (45-117); Aspartate Aminotransferase 23 U/L (15-37); BUN/Creatinine Ratio 13.4; Bilirubin, Total 0.3 mg/dL (0.2-1.0); GFR African American 123 mL/min; GFR Non-African American 102 mL/min; Phosphorus 3.8 mg/dL (2.5-4.90); Total Protein 7.9 g/dL (6.4-8.2); Uric Acid 4.1 mg/dL (2.6-6.0)
[2021-02-23 09:00] VITALS: BP 105/67
[2021-02-23] MEDS: LACTATED RINGER'S 1,000 ML IV SCH (09:00)
[2021-02-23] MEDS: FAMOTIDINE (10MG/ML) 2ML VL IV SCH ×2 (09:01→21:29)
[2021-02-23] MEDS: MORPHINE SULFATE INJECTION 2 MG/ML SYRG IV PRN ×2 (09:02→21:31)
[2021-02-23] MEDS: AZITHROMYCIN 500MG/ 250ML 250 ML IV SCH (09:58)
[2021-02-23] MEDS ORDERED: ENOXAPARIN SOD 40 MG/0.4 ML SYRINGE SC SCH (10:00)
[2021-02-23] MEDS: ALBUTEROL SULF 2.5 MG/0.5ML(0.5%) NEB SOLN NEB PRN (10:13)
[2021-02-23] MEDS: BUDESONIDE (INHALATION) 0.5 MG/2 ML NEB NEB SCH ×2 (10:13→19:02)
[2021-02-23] MEDS: IPRATROPIUM BROM 0.5 MG/2.5ML INH SOL NEB PRN (10:13)
[2021-02-23] MEDS: IPRATROPIUM BROM 0.5 MG/2.5ML INH SOL NEB SCH ×3 (14:08→22:00)
[2021-02-23] MEDS: ALBUTEROL SULF 2.5 MG/0.5ML(0.5%) NEB SOLN NEB SCH ×3 (14:09→22:00)
[2021-02-23] MEDS: HYDROcodone-ACET 5/325MG TAB PO PRN (14:10)
[2021-02-23 17:25] VITALS: BP 123/70
[2021-02-23 19:47] VITALS: BP 119/64
[2021-02-23 21:47] VITALS: BP 119/64
[2021-02-24 05:30] VITALS: BP 105/73
[2021-02-24] MEDS: methylPREDNISolone SOD SUCC 40 MG/ML VL IV SCH ×3 (06:01→21:19)
[2021-02-24] MEDS: ALBUTEROL SULF 2.5 MG/0.5ML(0.5%) NEB SOLN NEB SCH ×5 (07:32→22:48)
[2021-02-24] MEDS: IPRATROPIUM BROM 0.5 MG/2.5ML INH SOL NEB SCH ×5 (07:32→22:48)
[2021-02-24 08:13] VITALS: BP 126/95
[2021-02-24] MEDS: MORPHINE SULFATE INJECTION 2 MG/ML SYRG IV PRN ×2 (08:13→21:31)
[2021-02-24] MEDS: cefTRIAXone 1GM/50ML D5W 50 ML IV SCH (08:37)
[2021-02-24] MEDS: AZITHROMYCIN 500MG/ 250ML 250 ML IV SCH (09:45)
[2021-02-24] MEDS: FAMOTIDINE (10MG/ML) 2ML VL IV SCH (09:46)
[2021-02-24] MEDS: BUDESONIDE (INHALATION) 0.5 MG/2 ML NEB NEB SCH ×2 (10:46→22:48)
[2021-02-24] MEDS ORDERED: ERGOCALCIFEROL 50,000 UNIT(1.25MG) CAP PO SCH (12:00)
[2021-02-24] MEDS: PANTOPRAZOLE 40 MG TAB PO SCH (12:49)
[2021-02-24] MEDS: guaiFENesin-DM 100/10mg/5ml SYR PO PRN ×2 (12:49→21:29)
[2021-02-24 13:00] VITALS: BP 118/57
[2021-02-24] MEDS: ACETYLCYSTEINE 10 %(100MG/ML) SOL 4ML NEB SCH ×2 (14:00→22:48)
[2021-02-24 17:00] VITALS: BP 114/62
[2021-02-24 22:00] VITALS: BP 102/61
[2021-02-25] MEDS: guaiFENesin-DM 100/10mg/5ml SYR PO PRN ×3 (03:17→20:02)
[2021-02-25 04:30] VITALS: BP 124/73
[2021-02-25] MEDS: methylPREDNISolone SOD SUCC 40 MG/ML VL IV SCH ×3 (06:05→21:31)
[2021-02-25] MEDS: IPRATROPIUM BROM 0.5 MG/2.5ML INH SOL NEB SCH ×5 (06:10→22:04)
[2021-02-25] MEDS: ALBUTEROL SULF 2.5 MG/0.5ML(0.5%) NEB SOLN NEB SCH ×5 (06:10→22:04)
[2021-02-25] MEDS: ACETYLCYSTEINE 10 %(100MG/ML) SOL 4ML NEB SCH ×3 (06:10→22:04)
[2021-02-25] MEDS: MORPHINE SULFATE INJECTION 2 MG/ML SYRG IV PRN (06:15)
[2021-02-25 09:00] VITALS: BP 115/78
[2021-02-25] MEDS: cefTRIAXone 1GM/50ML D5W 50 ML IV SCH (09:20)
[2021-02-25] MEDS: PANTOPRAZOLE 40 MG TAB PO SCH (09:20)
[2021-02-25] MEDS: BUDESONIDE (INHALATION) 0.5 MG/2 ML NEB NEB SCH ×2 (10:10→18:19)
[2021-02-25] MEDS: AZITHROMYCIN 500MG/ 250ML 250 ML IV SCH (10:39)
[2021-02-25 12:50] VITALS: BP 129/77
[2021-02-25 17:41] VITALS: BP 116/64
[2021-02-25 19:37] VITALS: BP 116/64
[2021-02-25] MEDS: HYDROcodone-ACET 5/325MG TAB PO PRN (20:02)
[2021-02-25] MEDS: LORazepam 0.5 MG TAB PO PRN (21:31)
[2021-02-25 22:00] VITALS: BP 116/60
[2021-02-26] MEDS: guaiFENesin-DM 100/10mg/5ml SYR PO PRN (04:17)
[2021-02-26] MEDS: HYDROcodone-ACET 5/325MG TAB PO PRN (04:17)
[2021-02-26 05:00] VITALS: BP 119/69
[2021-02-26] MEDS: methylPREDNISolone SOD SUCC 40 MG/ML VL IV SCH (05:19)
[2021-02-26 06:00] LABS: Basophils # (auto) 0 10 ^3/uL (0-0.2); Basophils % (auto) 0.2 % (0.0-2.0); Eosinophils # (auto) 0 10 ^3/uL (0-0.8); Hematocrit 42.4 % (36.0-46.0); Hemoglobin 14.1 g/dL (12.2-16.2); Lymphocytes # (auto) 1.4 10 ^3/uL (0.4-5.4); Lymphocytes % (auto) 9.3 % (10.0-50.0); Mean Corpuscular Hemoglobin 28.6 pg (28.0-32.0); Mean Corpuscular Hgb Conc. 33.3 g/dL (32.0-36.0); Mean Corpuscular Volume 86.1 fL (80.0-100.0); Monocytes # (auto) 0.7 10 ^3/uL (0-1.3); Monocytes % (auto) 4.6 % (0.0-12.0); Neutrophils # (auto) 12.6 10 ^3/uL (1.6-8.6); Neutrophils % (auto) 85.9 % (37.0-80.0); Nucleated Red Blood Cells % 0.1 %; Red Blood Cells 4.93 10^6/uL (4.0-5.20); Red Cell Distribution Width 13.8 % (11.8-14.3); White Blood Cell 14.7 10^3/uL (4.4-10.8)
[2021-02-26 06:29] LABS: Albumin 3.1 g/dL (3.4-5.0); BUN/Creatinine Ratio 20.7; Bilirubin, Total 0.2 mg/dL (0.2-1.0); Calcium 8.4 mg/dL (8.5-10.1); Total Protein 7.4 g/dL (6.4-8.2)
[2021-02-26] MEDS: ALBUTEROL SULF 2.5 MG/0.5ML(0.5%) NEB SOLN NEB SCH ×5 (06:41→22:04)
[2021-02-26] MEDS: BUDESONIDE (INHALATION) 0.5 MG/2 ML NEB NEB SCH ×2 (06:41→18:48)
[2021-02-26] MEDS: IPRATROPIUM BROM 0.5 MG/2.5ML INH SOL NEB SCH ×5 (06:41→22:04)
[2021-02-26] MEDS: ACETYLCYSTEINE 10 %(100MG/ML) SOL 4ML NEB SCH ×3 (06:42→18:48)
[2021-02-26] MEDS: cefTRIAXone 1GM/50ML D5W 50 ML IV SCH (09:00)
[2021-02-26 09:10] VITALS: BP 140/74
[2021-02-26] MEDS: PANTOPRAZOLE 40 MG TAB PO SCH (10:00)
[2021-02-26] MEDS ORDERED: POTASSIUM CHL 20 Meq TABLET PO ONE (10:15)
[2021-02-26] MEDS ORDERED: FUROSEMIDE 20 MG/2 ML VIAL IV ONE (10:15)
[2021-02-26] MEDS: PROMETHAZINE W/CODEINE 5 ML ORAL SYRUP PO PRN ×2 (12:15→20:06)
[2021-02-26 12:59] VITALS: BP 125/81
[2021-02-26 16:40] VITALS: BP 123/70
[2021-02-26] MEDS ORDERED: methylPREDNISolone SOD SUCC 40 MG/ML VL IV SCH (17:00)
[2021-02-26 22:00] VITALS: BP 126/82
[2021-02-26] MEDS: LORazepam 0.5 MG TAB PO PRN (22:22)
[2021-02-27 05:00] VITALS: BP 94/68
[2021-02-27] MEDS: HYDROcodone-ACET 5/325MG TAB PO PRN (05:04)
[2021-02-27] MEDS: ALBUTEROL SULF 2.5 MG/0.5ML(0.5%) NEB SOLN NEB SCH ×5 (07:00→21:32)
[2021-02-27] MEDS: ACETYLCYSTEINE 10 %(100MG/ML) SOL 4ML NEB SCH ×3 (07:00→21:32)
[2021-02-27] MEDS: BUDESONIDE (INHALATION) 0.5 MG/2 ML NEB NEB SCH ×2 (07:00→21:32)
[2021-02-27] MEDS: IPRATROPIUM BROM 0.5 MG/2.5ML INH SOL NEB SCH ×5 (07:00→21:32)
[2021-02-27 08:48] VITALS: BP 127/79
[2021-02-27] MEDS: cefTRIAXone 1GM/50ML D5W 50 ML IV SCH (09:00)
[2021-02-27] MEDS: PANTOPRAZOLE 40 MG TAB PO SCH (10:00)
[2021-02-27] MEDS: predniSONE 20 MG TAB PO SCH (10:00)
[2021-02-27] MEDS: AZITHROMYCIN 250 MG TAB PO SCH (10:00)
[2021-02-27 13:00] VITALS: BP 141/74
[2021-02-27] MEDS: PROMETHAZINE W/CODEINE 5 ML ORAL SYRUP PO PRN ×2 (13:05→21:14)
[2021-02-27 16:29] VITALS: BP 109/77
[2021-02-27 22:00] VITALS: BP 127/91
[2021-02-28] MEDS: PROMETHAZINE W/CODEINE 5 ML ORAL SYRUP PO PRN ×4 (01:13→18:45)
[2021-02-28 05:00] VITALS: BP 109/75
[2021-02-28] MEDS: IPRATROPIUM BROM 0.5 MG/2.5ML INH SOL NEB SCH ×5 (06:26→22:36)
[2021-02-28] MEDS: ALBUTEROL SULF 2.5 MG/0.5ML(0.5%) NEB SOLN NEB SCH ×5 (06:26→22:36)
[2021-02-28] MEDS: BUDESONIDE (INHALATION) 0.5 MG/2 ML NEB NEB SCH ×2 (06:26→18:19)
[2021-02-28] MEDS: ACETYLCYSTEINE 10 %(100MG/ML) SOL 4ML NEB SCH ×3 (06:26→22:37)
[2021-02-28 07:38] LABS: Basophils # (auto) 0.1 10 ^3/uL (0-0.2); Basophils % (auto) 0.4 % (0.0-2.0); Eosinophils # (auto) 0.1 10 ^3/uL (0-0.8); Eosinophils % (auto) 0.6 % (0.0-7.0); Hematocrit 49.4 % (36.0-46.0); Hemoglobin 16.8 g/dL (12.2-16.2); Lymphocytes # (auto) 3.5 10 ^3/uL (0.4-5.4); Mean Corpuscular Hemoglobin 28.9 pg (28.0-32.0); Mean Corpuscular Volume 85.1 fL (80.0-100.0); Monocytes # (auto) 1.2 10 ^3/uL (0-1.3); Monocytes % (auto) 6.3 % (0.0-12.0); Neutrophils # (auto) 14.4 10 ^3/uL (1.6-8.6); Neutrophils % (auto) 74.7 % (37.0-80.0); Nucleated Red Blood Cells % 0.1 %; Red Blood Cells 5.81 10^6/uL (4.0-5.20); Red Cell Distribution Width 13.9 % (11.8-14.3); White Blood Cell 19.2 10^3/uL (4.4-10.8)
[2021-02-28 07:46] LABS: BUN/Creatinine Ratio 18.9; Calcium 8.8 mg/dL (8.5-10.1); Potassium 4.2 mmol/L (3.5-5.1)
[2021-02-28 09:00] VITALS: BP 129/97
[2021-02-28] MEDS: cefTRIAXone 1GM/50ML D5W 50 ML IV SCH (09:22)
[2021-02-28] MEDS: predniSONE 20 MG TAB PO SCH (09:23)
[2021-02-28] MEDS: PANTOPRAZOLE 40 MG TAB PO SCH (09:23)
[2021-02-28] MEDS: AZITHROMYCIN 250 MG TAB PO SCH (09:24)
[2021-02-28 13:00] VITALS: BP 118/75
[2021-02-28] MEDS: ENOXAPARIN SOD 60 MG/0.6 ML SYRINGE SC SCH ×2 (16:35→21:38)
[2021-02-28 17:00] VITALS: BP 111/70
[2021-02-28 17:39] VITALS: BP 111/70
[2021-02-28] MEDS: MORPHINE SULFATE INJECTION 2 MG/ML SYRG IV PRN (21:38)
[2021-02-28 22:00] VITALS: BP_SYST 116; BP_SYST 125; BP_DIAS 70; BP_DIAS 83
[2021-03-01 04:55] VITALS: BP 111/63
[2021-03-01] MEDS: IPRATROPIUM BROM 0.5 MG/2.5ML INH SOL NEB SCH ×5 (07:06→22:17)
[2021-03-01] MEDS: ALBUTEROL SULF 2.5 MG/0.5ML(0.5%) NEB SOLN NEB SCH ×5 (07:06→22:17)
[2021-03-01] MEDS: ACETYLCYSTEINE 10 %(100MG/ML) SOL 4ML NEB SCH ×3 (07:06→22:17)
[2021-03-01] MEDS: BUDESONIDE (INHALATION) 0.5 MG/2 ML NEB NEB SCH ×2 (07:06→22:17)
[2021-03-01 09:00] VITALS: BP 117/72
[2021-03-01] MEDS: cefTRIAXone 1GM/50ML D5W 50 ML IV SCH (09:07)
[2021-03-01] MEDS: PANTOPRAZOLE 40 MG TAB PO SCH (09:08)
[2021-03-01] MEDS: AZITHROMYCIN 250 MG TAB PO SCH (09:08)
[2021-03-01] MEDS: ENOXAPARIN SOD 60 MG/0.6 ML SYRINGE SC SCH ×2 (09:08→21:18)
[2021-03-01] MEDS: predniSONE 20 MG TAB PO SCH (09:08)
[2021-03-01 11:18] LABS: Basophils # (auto) 0.1 10 ^3/uL (0-0.2); Eosinophils # (auto) 0.1 10 ^3/uL (0-0.8); Hematocrit 47.6 % (36.0-46.0); Hemoglobin 16.1 g/dL (12.2-16.2); Lymphocytes # (auto) 2.6 10 ^3/uL (0.4-5.4); Lymphocytes % (auto) 19.6 % (10.0-50.0); Mean Corpuscular Hemoglobin 28.9 pg (28.0-32.0); Mean Corpuscular Hgb Conc. 33.8 g/dL (32.0-36.0); Mean Corpuscular Volume 85.6 fL (80.0-100.0); Monocytes # (auto) 0.7 10 ^3/uL (0-1.3); Monocytes % (auto) 5.1 % (0.0-12.0); Neutrophils # (auto) 9.9 10 ^3/uL (1.6-8.6); Neutrophils % (auto) 73.3 % (37.0-80.0); Nucleated Red Blood Cells % 0.1 %; Red Blood Cells 5.57 10^6/uL (4.0-5.20); Red Cell Distribution Width 14.1 % (11.8-14.3); White Blood Cell 13.5 10^3/uL (4.4-10.8)
[2021-03-01 13:00] VITALS: BP 110/94
[2021-03-01 17:00] VITALS: BP 118/84
[2021-03-01 22:00] VITALS: BP 105/67
[2021-03-02 05:00] VITALS: BP 125/79
[2021-03-02] MEDS: IPRATROPIUM BROM 0.5 MG/2.5ML INH SOL NEB SCH ×2 (06:55→09:57)
[2021-03-02] MEDS: ACETYLCYSTEINE 10 %(100MG/ML) SOL 4ML NEB SCH (06:55)
[2021-03-02] MEDS: ALBUTEROL SULF 2.5 MG/0.5ML(0.5%) NEB SOLN NEB SCH ×2 (06:55→09:57)
[2021-03-02] MEDS: BUDESONIDE (INHALATION) 0.5 MG/2 ML NEB NEB SCH (07:02)
[2021-03-02] MEDS: cefTRIAXone 1GM/50ML D5W 50 ML IV SCH (08:43)
[2021-03-02] MEDS: predniSONE 20 MG TAB PO SCH (08:43)
[2021-03-02] MEDS: AZITHROMYCIN 250 MG TAB PO SCH (08:44)
[2021-03-02] MEDS: ENOXAPARIN SOD 60 MG/0.6 ML SYRINGE SC SCH (08:44)
[2021-03-02] MEDS: PANTOPRAZOLE 40 MG TAB PO SCH (08:44)
[2021-03-02 09:00] VITALS: BP 135/69
[2021-03-02 10:28] VITALS: BP 135/69
== END 2021-03-02 12:51 | disposition home or self-care (01) | DRG 720 ==
LOC: ER 22:06 → TELE 02-22 09:17 → TELE-CENTR 02-22 15:35 → CENTRAL 02-23 10:26
PROVIDERS: ADMIT Hospitalist; ATTEND Internal Medicine
DX: A41.9 Sepsis, unspecified organism (principal); J96.21 Acute and chronic respiratory failure with hypoxia; I27.20 Pulmonary hypertension, unspecified; J44.0 Chronic obstructive pulmonary disease with (acute) lower respiratory infection; J45.901 Unspecified asthma with (acute) exacerbation; J18.9 Pneumonia, unspecified organism; R65.20 Severe sepsis without septic shock; B34.9 Viral infection, unspecified; J20.9 Acute bronchitis, unspecified; N39.0 Urinary tract infection, site not specified; E66.01 Morbid (severe) obesity due to excess calories; K21.9 Gastro-esophageal reflux disease without esophagitis; K75.81 Nonalcoholic steatohepatitis (NASH); N20.0 Calculus of kidney; E11.9 Type 2 diabetes mellitus without complications; E78.5 Hyperlipidemia, unspecified; I10 Essential (primary) hypertension; I25.10 Atherosclerotic heart disease of native coronary artery without angina pectoris; R53.81 Other malaise; Z20.822 Contact with and (suspected) exposure to COVID-19; Z80.0 Family history of malignant neoplasm of digestive organs; Z83.3 Family history of diabetes mellitus; Z85.07 Personal history of malignant neoplasm of pancreas; Z87.74 Personal history of (corrected) congenital malformations of heart and circulatory system; Z87.442 Personal history of urinary calculi; Z90.49 Acquired absence of other specified parts of digestive tract; Z88.8 Allergy status to other drugs, medicaments and biological substances; Z91.041 Radiographic dye allergy status; Z68.35 Body mass index [BMI] 35.0-35.9, adult
CPT/HCPCS: 36415; 71045; 71046; 71275; 74176; 80048; 80053; 80061; 81001; 81025; 82306; 82550; 82728; 83036; 83605; 83615; 83735; 83880; 84100; 84132; 84443; 84484; 84550; 85025; 85379; 85610; 85730; 86141; 87040; 87086; 87426; 87804; 93005; 93306; 94640; 96365; G0378; J0696; J1100; J3490

== ENCOUNTER 2021-03-16 19:45 | Emergency (ER) | payer MEDICAID ==
[~2021-03-16] VITALS: Ht 157.5 cm; Wt 86.2 kg
[2021-03-16 20:30] LABS: Basophils # (auto) 0 10 ^3/uL (0-0.2); Basophils % (auto) 0.5 % (0.0-2.0); Eosinophils # (auto) 0.3 10 ^3/uL (0-0.8); Eosinophils % (auto) 4.5 % (0.0-7.0); Hematocrit 44.2 % (36.0-46.0); Hemoglobin 14.9 g/dL (12.2-16.2); Lymphocytes # (auto) 1.8 10 ^3/uL (0.4-5.4); Lymphocytes % (auto) 24.4 % (10.0-50.0); Mean Corpuscular Hemoglobin 28.8 pg (28.0-32.0); Mean Corpuscular Hgb Conc. 33.7 g/dL (32.0-36.0); Mean Corpuscular Volume 85.6 fL (80.0-100.0); Monocytes # (auto) 0.6 10 ^3/uL (0-1.3); Monocytes % (auto) 8.3 % (0.0-12.0); Neutrophils # (auto) 4.7 10 ^3/uL (1.6-8.6); Neutrophils % (auto) 62.3 % (37.0-80.0); Nucleated Red Blood Cells % 0.1 %; Red Blood Cells 5.16 10^6/uL (4.0-5.20); Red Cell Distribution Width 14.5 % (11.8-14.3); White Blood Cell 7.5 10^3/uL (4.4-10.8)
[2021-03-16 20:52] LABS: Albumin 3.4 g/dL (3.4-5.0); Calcium 8.8 mg/dL (8.5-10.1); Potassium 4.4 mmol/L (3.5-5.1)
[2021-03-16 20:57] LABS: BUN/Creatinine Ratio 13.9; Bilirubin, Total 0.4 mg/dL (0.2-1.0); Total Protein 7.5 g/dL (6.4-8.2)
[2021-03-16 22:50] LABS: Urine Bacteria NONE SEEN /hpf (None Seen); Urine Blood TRACE /uL (Negative); Urine Specific Gravity 1.011 (1.001-1.035); Urine WBC <1 /hpf (0 - 5)
[2021-03-17 02:30] VITALS: BP 145/88
== END 2021-03-17 02:41 | disposition home or self-care (01) ==
LOC: ER 19:49
DX: R07.89 Other chest pain (principal); R06.02 Shortness of breath; Z87.442 Personal history of urinary calculi; Z90.49 Acquired absence of other specified parts of digestive tract; Z20.822 Contact with and (suspected) exposure to COVID-19
CPT/HCPCS: 36415; 71045; 80053; 81001; 82728; 84484; 85025; 85379; 86141; 87426; 93005

== ENCOUNTER 2021-05-25 11:52 | Emergency (ER) | payer MEDICAID ==
[~2021-05-25] VITALS: Ht 160 cm; Wt 93.0 kg
[2021-05-25] MEDS ORDERED: diphenhdrAMINE HCL 25 MG CAP PO ONE ×2 (12:35→12:45)
[2021-05-25] MEDS ORDERED: SODIUM CHLORIDE 0.9% 500 ML IVB ONE (13:00)
[2021-05-25 14:04] LABS: Basophils # (auto) 0.1 10 ^3/uL (0-0.2); Basophils % (auto) 0.7 % (0.0-2.0); Eosinophils # (auto) 0.2 10 ^3/uL (0-0.8); Eosinophils % (auto) 2.5 % (0.0-7.0); Hematocrit 44.4 % (36.0-46.0); Hemoglobin 15.1 g/dL (12.2-16.2); Lymphocytes # (auto) 2.1 10 ^3/uL (0.4-5.4); Lymphocytes % (auto) 26.1 % (10.0-50.0); Mean Corpuscular Hemoglobin 28.9 pg (28.0-32.0); Mean Corpuscular Volume 84.9 fL (80.0-100.0); Monocytes # (auto) 0.6 10 ^3/uL (0-1.3); Monocytes % (auto) 7.1 % (0.0-12.0); Neutrophils # (auto) 5.1 10 ^3/uL (1.6-8.6); Neutrophils % (auto) 63.6 % (37.0-80.0); Nucleated Red Blood Cells % 0.1 %; Red Blood Cells 5.23 10^6/uL (4.0-5.20); Red Cell Distribution Width 13.7 % (11.8-14.3); White Blood Cell 8.1 10^3/uL (4.4-10.8)
[2021-05-25 14:19] LABS: Albumin 3.7 g/dL (3.4-5.0); Calcium 8.6 mg/dL (8.5-10.1); Magnesium 2.1 mg/dL (1.6-2.6); Potassium 4.2 mmol/L (3.5-5.1)
[2021-05-25 14:24] LABS: BUN/Creatinine Ratio 14.5; Bilirubin, Total 0.7 mg/dL (0.2-1.0); Total Protein 7.6 g/dL (6.4-8.2)
[2021-05-25 17:58] LABS: Urine Bacteria FEW /hpf (None Seen); Urine Blood TRACE /uL (Negative); Urine Hyaline Cast FEW /lpf (0 - 2); Urine Mucus FEW (None Seen); Urine Specific Gravity 1.021 (1.001-1.035); Urine WBC 13 /hpf (0 - 5)
[2021-05-25] MEDS ORDERED: DIPH25CA66 PO ×2 (18:51)
[2021-05-25] MEDS ORDERED: NITR-87 PO (18:51)
[2021-05-25 19:51] VITALS: BP 205/94
== END 2021-05-25 20:18 | disposition home or self-care (01) ==
LOC: ER 11:52
DX: N39.0 Urinary tract infection, site not specified (principal); T78.40XA Allergy, unspecified, initial encounter; J45.909 Unspecified asthma, uncomplicated; Z90.49 Acquired absence of other specified parts of digestive tract; Z79.1 Long term (current) use of non-steroidal anti-inflammatories (NSAID); Z79.899 Other long term (current) drug therapy; Z88.8 Allergy status to other drugs, medicaments and biological substances
CPT/HCPCS: 36415; 74176; 80053; 81001; 82150; 83690; 83735; 85025

== ENCOUNTER 2021-09-10 21:54 | Emergency (ER) | payer MEDICAID ==
[~2021-09-10] VITALS: Ht 160 cm; Wt 91.6 kg
[~2021-09-10 21:54] MED LIST changes: +DIPH25CA66 PO
[2021-09-10] MEDS ORDERED: ALBUTEROL SULF 2.5 MG/0.5ML(0.5%) NEB SOLN NEB ONE ×2 (22:30→23:30)
[2021-09-10] MEDS ORDERED: predniSONE 20 MG TAB PO ONE (22:30)
[2021-09-10] MEDS ORDERED: IPRATROPIUM BROM 0.5 MG/2.5ML INH SOL NEB ONE ×2 (22:30→23:30)
[2021-09-10 23:16] LABS: Basophils # (auto) 0 10 ^3/uL (0-0.2); Basophils % (auto) 0.6 % (0.0-2.0); Eosinophils # (auto) 0.2 10 ^3/uL (0-0.8); Eosinophils % (auto) 2.7 % (0.0-7.0); Hematocrit 42.5 % (36.0-46.0); Hemoglobin 14.6 g/dL (12.2-16.2); Lymphocytes # (auto) 3.3 10 ^3/uL (0.4-5.4); Lymphocytes % (auto) 37.9 % (10.0-50.0); Mean Corpuscular Hemoglobin 29.1 pg (28.0-32.0); Mean Corpuscular Hgb Conc. 34.3 g/dL (32.0-36.0); Mean Corpuscular Volume 84.9 fL (80.0-100.0); Monocytes # (auto) 0.6 10 ^3/uL (0-1.3); Monocytes % (auto) 7.1 % (0.0-12.0); Neutrophils # (auto) 4.5 10 ^3/uL (1.6-8.6); Neutrophils % (auto) 51.7 % (37.0-80.0); White Blood Cell 8.6 10^3/uL (4.4-10.8)
[2021-09-10 23:53] LABS: Albumin 3.6 g/dL (3.4-5.0); BUN/Creatinine Ratio 12.3; Calcium 8.9 mg/dL (8.5-10.1); Potassium 4.3 mmol/L (3.5-5.1)
[2021-09-10 23:55] LABS: Bilirubin, Total 0.3 mg/dL (0.2-1.0); Total Protein 7.4 g/dL (6.4-8.2)
[2021-09-11] MEDS ORDERED: ALBUAER3 IN (00:16)
[2021-09-11] MEDS ORDERED: AZIT250T9 PO (00:16)
[2021-09-11] MEDS ORDERED: PRED20TA2 PO (00:16)
[2021-09-11 00:28] VITALS: BP 126/82
== END 2021-09-11 00:29 | disposition home or self-care (01) ==
LOC: ER 21:54
DX: J45.901 Unspecified asthma with (acute) exacerbation (principal); I10 Essential (primary) hypertension; Z90.49 Acquired absence of other specified parts of digestive tract
CPT/HCPCS: 36415; 71045; 80053; 84484; 85025; 93005; 94640; 99285; J7512; J7644

== ENCOUNTER 2021-09-18 15:01 | Emergency (ER) | payer MEDICAID ==
[~2021-09-18] VITALS: Ht 160 cm; Wt 91.2 kg
[~2021-09-18 15:01] MED LIST changes: +AZIT250T9 PO; +PRED20TA2 PO
[2021-09-18 15:30] LABS: Basophils # (auto) 0.2 10 ^3/uL (0-0.2); Basophils % (auto) 2.1 % (0.0-2.0); Eosinophils # (auto) 0.1 10 ^3/uL (0-0.8); Eosinophils % (auto) 1.6 % (0.0-7.0); Hematocrit 42.8 % (36.0-46.0); Hemoglobin 14.7 g/dL (12.2-16.2); Lymphocytes # (auto) 1.5 10 ^3/uL (0.4-5.4); Mean Corpuscular Hemoglobin 29.1 pg (28.0-32.0); Mean Corpuscular Hgb Conc. 34.3 g/dL (32.0-36.0); Mean Corpuscular Volume 84.7 fL (80.0-100.0); Monocytes # (auto) 0.5 10 ^3/uL (0-1.3); Monocytes % (auto) 6.4 % (0.0-12.0); Neutrophils # (auto) 5.9 10 ^3/uL (1.6-8.6); Neutrophils % (auto) 71.9 % (37.0-80.0); Nucleated Red Blood Cells % 0.1 %; Red Blood Cells 5.05 10^6/uL (4.0-5.20); White Blood Cell 8.2 10^3/uL (4.4-10.8)
[2021-09-18 15:39] VITALS: BP 144/72
[2021-09-18 15:47] LABS: Albumin 3.7 g/dL (3.4-5.0); Potassium 3.8 mmol/L (3.5-5.1)
[2021-09-18 15:49] LABS: Urine Bacteria NONE SEEN /hpf (None Seen); Urine Blood 1+ /uL (Negative); Urine Mucus FEW (None Seen); Urine Specific Gravity 1.028 (1.001-1.035); Urine WBC 120 /hpf (0 - 5)
[2021-09-18 15:50] LABS: BUN/Creatinine Ratio 14.5; Bilirubin, Total 0.3 mg/dL (0.2-1.0); Total Protein 7.8 g/dL (6.4-8.2)
[2021-09-18] MEDS ORDERED: PROMETHAZINE HCL 25 MG/ML 1ML IM ONE (16:00)
[2021-09-18] MEDS ORDERED: KETOROLAC TROMETH 60MG/2ML VIAL IM ONE (16:00)
[2021-09-18] MEDS ORDERED: ONDA-144 PO (16:37)
[2021-09-18] MEDS ORDERED: CIPR-173 PO (16:37)
[2021-09-18] MEDS ORDERED: IBUP800T27 PO (16:37)
== END 2021-09-18 16:51 | disposition home or self-care (01) ==
LOC: ER 15:01
DX: N20.0 Calculus of kidney (principal); N39.0 Urinary tract infection, site not specified; K76.0 Fatty (change of) liver, not elsewhere classified; J45.909 Unspecified asthma, uncomplicated; I10 Essential (primary) hypertension; Z90.49 Acquired absence of other specified parts of digestive tract; Z32.02 Encounter for pregnancy test, result negative
CPT/HCPCS: 36415; 74176; 80053; 81001; 81025; 82150; 83690; 85025; 96372; 99284; J1885; J2550

== ENCOUNTER 2021-10-16 11:22 | Emergency (ER) | payer MEDICAID ==
[~2021-10-16] VITALS: Ht 160 cm; Wt 68.0 kg
[~2021-10-16 11:22] MED LIST changes: +CIPR-173 PO; +IBUP800T27 PO; +ONDA-144 PO
[2021-10-16] MEDS ORDERED: FAMOTIDINE (10MG/ML) 2ML VL IV ONE (12:00)
[2021-10-16] MEDS ORDERED: MORPHINE SULFATE 4 MG/ML SYR/VIAL IV ONE (12:00)
[2021-10-16] MEDS ORDERED: PANTOPRAZOLE 40 MG/10 ML VIAL INJ IV ONE (12:00)
[2021-10-16] MEDS ORDERED: ONDANSETRON HCL 4 MG/2 ML VIAL IV ONE (12:00)
[2021-10-16] MEDS ORDERED: SODIUM CHLORIDE 0.9% 1,000 ML IVB ONE (12:00)
[2021-10-16 12:29] LABS: Basophils # (auto) 0.1 10 ^3/uL (0-0.2); Basophils % (auto) 1.7 % (0.0-2.0); Eosinophils # (auto) 0.2 10 ^3/uL (0-0.8); Hematocrit 45.3 % (36.0-46.0); Hemoglobin 15.2 g/dL (12.2-16.2); Lymphocytes # (auto) 1.3 10 ^3/uL (0.4-5.4); Lymphocytes % (auto) 17.3 % (10.0-50.0); Mean Corpuscular Hemoglobin 28.7 pg (28.0-32.0); Mean Corpuscular Hgb Conc. 33.6 g/dL (32.0-36.0); Mean Corpuscular Volume 85.3 fL (80.0-100.0); Monocytes # (auto) 0.3 10 ^3/uL (0-1.3); Monocytes % (auto) 4.7 % (0.0-12.0); Neutrophils # (auto) 5.4 10 ^3/uL (1.6-8.6); Neutrophils % (auto) 73.3 % (37.0-80.0); Nucleated Red Blood Cells % 0.1 %; Red Blood Cells 5.31 10^6/uL (4.0-5.20); Red Cell Distribution Width 14.1 % (11.8-14.3); White Blood Cell 7.4 10^3/uL (4.4-10.8)
[2021-10-16 12:50] LABS: Albumin 3.5 g/dL (3.4-5.0); Calcium 8.9 mg/dL (8.5-10.1); Magnesium 2.3 mg/dL (1.6-2.6); Potassium 4.1 mmol/L (3.5-5.1)
[2021-10-16 12:53] LABS: BUN/Creatinine Ratio 14.9; Bilirubin, Total 0.3 mg/dL (0.2-1.0); Total Protein 7.9 g/dL (6.4-8.2)
[2021-10-16] MEDS ORDERED: IOHEXOL 300 MG/ML 100ML BOTTLE IJ ONE (13:41)
[2021-10-16 14:05] LABS: Urine Bacteria NONE SEEN /hpf (None Seen); Urine Blood 1+ /uL (Negative); Urine Mucus FEW (None Seen); Urine Specific Gravity 1.013 (1.001-1.035); Urine WBC 112 /hpf (0 - 5)
[2021-10-16] MEDS ORDERED: cefTRIAXone 1GM/50ML D5W 50 ML IV ONE (16:00)
[2021-10-16] MEDS ORDERED: CEFD300C2 PO (16:40)
[2021-10-16] MEDS ORDERED: POLY33504 PO (16:40)
[2021-10-16] MEDS ORDERED: ACET-1079 PO (16:40)
[2021-10-16 17:00] VITALS: BP 126/71
== END 2021-10-16 17:26 | disposition home or self-care (01) ==
LOC: ER 11:22
DX: N39.0 Urinary tract infection, site not specified (principal); J45.909 Unspecified asthma, uncomplicated; I10 Essential (primary) hypertension; Z87.442 Personal history of urinary calculi; Z90.49 Acquired absence of other specified parts of digestive tract; Z88.6 Allergy status to analgesic agent
CPT/HCPCS: 36415; 74177; 80053; 81001; 83605; 83690; 83735; 84702; 85025; 87086; 96361; 96365; 96375; 99285; C9113; J0696; J2270; J2405; J3490; J7030; Q9967

== ENCOUNTER 2023-01-03 12:34 | Emergency (ER) | payer MEDICAID ==
[~2023-01-03] VITALS: Ht 167.6 cm; Wt 89.9 kg
[~2023-01-03 12:34] MED LIST changes: +ACET-1079 PO; +AZIT-43 PO; -AZIT250T9 PO; +CEFD300C2 PO; +IBUP-1456 PO; -IBUP800T27 PO; +POLY33504 PO
[2023-01-03 13:19] LABS: Alanine Aminotransferase 38 U/L (7-40); Albumin 4.4 g/dL (3.2-4.8); Alkaline Phosphatase 101 U/L (46-116); Anion Gap 7.9 (5-15); Aspartate Aminotransferase 13 U/L (13-40); BUN/Creatinine Ratio 17.1 (10.0-20.0); Bilirubin, Total 0.4 mg/dL (0.2-1.0); Blood Urea Nitrogen 13 mg/dL (9-23); Calcium 9.6 mg/dL (8.5-10.1); Carbon Dioxide 29.1 mmol/L (20-30); Chloride 102 mmol/L (98-107); Glucose 132 mg/dL (74-106); Sodium 139 mmol/L (136-145); Total Protein 7.4 g/dL (5.7-8.2)
[2023-01-03 13:32] LABS: Basophils # (auto) 0 10 ^3/uL (0-0.2); Basophils % (auto) 0.5 % (0.0-2.0); Eosinophils # (auto) 0.2 10 ^3/uL (0-0.8); Eosinophils % (auto) 2.1 % (0.0-7.0); Hematocrit 45.5 % (36.0-46.0); Hemoglobin 15.4 g/dL (12.2-16.2); Lymphocytes % (auto) 22.4 % (10.0-50.0); Mean Corpuscular Hemoglobin 28.4 pg (28.0-32.0); Mean Corpuscular Hgb Conc. 33.9 g/dL (32.0-36.0); Mean Corpuscular Volume 83.9 fL (80.0-100.0); Monocytes # (auto) 0.6 10 ^3/uL (0-1.3); Monocytes % (auto) 6.3 % (0.0-12.0); Neutrophils # (auto) 6.2 10 ^3/uL (1.6-8.6); Neutrophils % (auto) 68.7 % (37.0-80.0); Nucleated Red Blood Cells % 0.1 %; Red Blood Cells 5.43 10^6/uL (4.0-5.20); Red Cell Distribution Width 14.3 % (11.8-14.3)
[2023-01-03 13:57] LABS: Urine Bacteria NONE SEEN /hpf (None Seen); Urine Blood 2+ /uL (Negative); Urine Clarity Clear (Clear); Urine Color Yellow (Yellow); Urine Mucus FEW (None Seen); Urine Protein, UAD 1+ (Negative); Urine Specific Gravity 1.029 (1.001-1.035); Urine Urobilinogen Normal (Negative); Urine WBC 2 /hpf (0 - 5); Urine pH 5.5 (5.0-8.0)
[2023-01-03 16:55] VITALS: BP 122/75; PULSE 94; RESP 19; TEMP 98.7; O2SAT 98
== END 2023-01-03 16:59 | disposition home or self-care (01) ==
LOC: ER 12:34
DX: R07.89 Other chest pain (principal); J45.909 Unspecified asthma, uncomplicated; I10 Essential (primary) hypertension; Z90.49 Acquired absence of other specified parts of digestive tract; Z87.442 Personal history of urinary calculi; Z87.440 Personal history of urinary (tract) infections; Z88.6 Allergy status to analgesic agent
CPT/HCPCS: 36415; 71045; 80053; 81001; 83880; 84484; 85025; 93005

== ENCOUNTER 2023-06-14 17:11 | Emergency (ER) | payer MEDICAID ==
[~2023-06-14] VITALS: Ht 160 cm; Wt 91.0 kg
[~2023-06-14 17:11] MED LIST changes: +CYCL-611 PO; +IBUP-1455 PO; +MUPI2OIN2 EX
[2023-06-14 18:32] LABS: Basophils # (auto) 0 10 ^3/uL (0-0.2); Basophils % (auto) 0.5 % (0.0-2.0); Eosinophils # (auto) 0.3 10 ^3/uL (0-0.8); Eosinophils % (auto) 3.3 % (0.0-7.0); Hematocrit 44.4 % (36.0-46.0); Lymphocytes # (auto) 2.9 10 ^3/uL (0.4-5.4); Lymphocytes % (auto) 34.1 % (10.0-50.0); Mean Corpuscular Hemoglobin 28.8 pg (28.0-32.0); Mean Corpuscular Hgb Conc. 33.7 g/dL (32.0-36.0); Mean Corpuscular Volume 85.2 fL (80.0-100.0); Monocytes # (auto) 0.6 10 ^3/uL (0-1.3); Neutrophils # (auto) 4.6 10 ^3/uL (1.6-8.6); Neutrophils % (auto) 55.1 % (37.0-80.0); Nucleated Red Blood Cells % 0.1 %; Red Blood Cells 5.21 10^6/uL (4.0-5.20); Red Cell Distribution Width 13.8 % (11.8-14.3); White Blood Cell 8.4 10^3/uL (4.4-10.8)
[2023-06-15] MEDS ORDERED: IBUP-1455 PO (01:40)
[2023-06-15] MEDS ORDERED: HYDR-4902 PO (01:40)
[2023-06-15 04:07] LABS: Urine Bacteria FEW /hpf (None Seen); Urine Blood 1+ /uL (Negative); Urine Clarity Clear (Clear); Urine Color Yellow (Yellow); Urine Mucus FEW (None Seen); Urine Protein, UAD TRACE (Negative); Urine Specific Gravity 1.021 (1.001-1.035); Urine Urobilinogen Normal (Negative); Urine WBC 13 /hpf (0 - 5)
[2023-06-15] MEDS: PHENAZOPYRIDINE HCL 100 MG TAB PO ONE (04:39)
[2023-06-15] MEDS: ONDANSETRON ODT 4 MG TAB PO ONE (04:45)
[2023-06-15 04:46] VITALS: BP 160/85; PULSE 75; RESP 16; TEMP 98.2; O2SAT 95
[2023-06-15] MEDS: HYDROcodone-ACET 10/325MG TAB PO ONE (04:46)
== END 2023-06-15 04:46 | disposition home or self-care (01) ==
LOC: ER 17:11
DX: R10.84 Generalized abdominal pain (principal); R11.2 Nausea with vomiting, unspecified; J45.909 Unspecified asthma, uncomplicated; I10 Essential (primary) hypertension; Z87.442 Personal history of urinary calculi; Z88.6 Allergy status to analgesic agent; Z88.8 Allergy status to other drugs, medicaments and biological substances; Z90.49 Acquired absence of other specified parts of digestive tract
CPT/HCPCS: 36415; 74176; 81001; 85025

== ENCOUNTER 2023-08-31 10:32 | Inpatient (IN) | payer MEDICAID ==
[~2023-08-31] VITALS: Ht 160 cm; Wt 81.0 kg
[~2023-08-31 10:32] MED LIST changes: +HYDR-4902 PO
[2023-08-31 11:24] LABS: Basophils # (auto) 0 10 ^3/uL (0-0.2); Basophils % (auto) 0.5 % (0.0-2.0); Eosinophils # (auto) 0.4 10 ^3/uL (0-0.8); Eosinophils % (auto) 5.3 % (0.0-7.0); Hemoglobin 14.9 g/dL (12.2-16.2); Lymphocytes # (auto) 2.3 10 ^3/uL (0.4-5.4); Lymphocytes % (auto) 32.5 % (10.0-50.0); Mean Corpuscular Hemoglobin 27.9 pg (28.0-32.0); Mean Corpuscular Volume 84.5 fL (80.0-100.0); Monocytes # (auto) 0.7 10 ^3/uL (0-1.3); Monocytes % (auto) 9.6 % (0.0-12.0); Neutrophils # (auto) 3.7 10 ^3/uL (1.6-8.6); Neutrophils % (auto) 52.1 % (37.0-80.0); Nucleated Red Blood Cells % 0.1 %; Red Blood Cells 5.33 10^6/uL (4.0-5.20); Red Cell Distribution Width 14.3 % (11.8-14.3); White Blood Cell 7.2 10^3/uL (4.4-10.8)
[2023-08-31 11:29] LABS: Chloride 103 mmol/L (98-107); Sodium 140 mmol/L (136-145)
[2023-08-31 11:30] LABS: Anion Gap 7 (5-15); Calcium 8.9 mg/dL (8.5-10.1); Carbon Dioxide 30 mmol/L (20-30)
[2023-08-31] MEDS: ALBUTEROL SULF 2.5 MG/0.5ML(0.5%) NEB SOLN NEB ONE ×3 (11:30→15:41)
[2023-08-31] MEDS: IPRATROPIUM BROM 0.5 MG/2.5ML INH SOL NEB ONE ×3 (11:31→15:41)
[2023-08-31 11:35] LABS: BUN/Creatinine Ratio 17.6 (10.0-20.0); Blood Urea Nitrogen 12 mg/dL (9-23); Glucose 104 mg/dL (74-106)
[2023-08-31] MEDS: methylPREDNISolone SOD SUCC 125 MG/2 ML VL IV ONE (12:23)
[2023-08-31] MEDS ORDERED: ONDANSETRON HCL 4 MG/2 ML VIAL IV PRN (12:30)
[2023-08-31] MEDS ORDERED: DOCUSATE SOD 100 MG CAP PO PRN (12:30)
[2023-08-31] MEDS: ALBUTEROL SULF 2.5 MG/0.5ML(0.5%) NEB SOLN NEB SCH (13:21)
[2023-08-31] MEDS: IPRATROPIUM BROM 0.5 MG/2.5ML INH SOL NEB SCH (13:21)
[2023-08-31 13:30] VITALS: BP 127/106; PULSE 81; RESP 24; TEMP 98.4; O2SAT 96
[2023-08-31] MEDS: SODIUM CHLORIDE 0.9% 1,000 ML IV SCH (14:27)
[2023-08-31] MEDS: PANTOPRAZOLE 40 MG/10 ML VIAL INJ IV ONE (14:40)
[2023-08-31] MEDS: methylPREDNISolone SOD SUCC 125 MG/2 ML VL IV SCH (14:40)
[2023-08-31 15:25] VITALS: PULSE 81; RESP 22; O2SAT 97
[2023-08-31] MEDS: BUDESONIDE (INHALATION) 0.5 MG/2 ML NEB NEB ONE (16:44)
[2023-08-31] MEDS: BUDESONIDE (INHALATION) 0.5 MG/2 ML NEB ONE (16:45)
[2023-08-31] MEDS: SODIUM CHLORIDE 0.9% 2,000 ML IV ONE (17:03)
[2023-08-31] MEDS: LORATADINE 10 MG TAB PO ONE (17:23)
[2023-08-31] MEDS: AZITHROMYCIN 250 MG TAB PO ONE (17:23)
[2023-08-31] MEDS: MAGNESIUM SULFATE 1GM/100ML 100 ML IV SCH (18:17)
[2023-08-31 18:35] VITALS: PULSE 116; RESP 22; O2SAT 98
[2023-08-31 18:43] VITALS: PULSE 115; RESP 20; O2SAT 100
[2023-08-31 22:00] VITALS: PULSE 112; RESP 20; O2SAT 99
[2023-08-31] MEDS: BUDESONIDE (INHALATION) 0.5 MG/2 ML NEB NEB SCH (22:01)
[2023-08-31 22:10] VITALS: PULSE 111; RESP 20; O2SAT 100
[2023-09-01] VITALS (22 sets, daily range): BP systolic 111–140; BP diastolic 58–76; PULSE 72–114; RESP 14–20; TEMP 97.4–98.4; O2SAT 96–100
[2023-09-01] MEDS: MORPHINE SULFATE INJ 2 MG/ml SYRG IV PRN (01:14)
[2023-09-01 06:16] LABS: Basophils # (auto) 0 10 ^3/uL (0-0.2); Eosinophils # (auto) 0 10 ^3/uL (0-0.8); Hematocrit 40.2 % (36.0-46.0); Hemoglobin 13.3 g/dL (12.2-16.2); Lymphocytes # (auto) 0.7 10 ^3/uL (0.4-5.4); Lymphocytes % (auto) 6.1 % (10.0-50.0); Mean Corpuscular Hemoglobin 28.1 pg (28.0-32.0); Mean Corpuscular Hgb Conc. 33.1 g/dL (32.0-36.0); Mean Corpuscular Volume 84.9 fL (80.0-100.0); Monocytes # (auto) 0.3 10 ^3/uL (0-1.3); Monocytes % (auto) 2.5 % (0.0-12.0); Neutrophils # (auto) 10.6 10 ^3/uL (1.6-8.6); Neutrophils % (auto) 91.4 % (37.0-80.0); Nucleated Red Blood Cells % 0.1 %; Red Blood Cells 4.73 10^6/uL (4.0-5.20); Red Cell Distribution Width 14.6 % (11.8-14.3); White Blood Cell 11.6 10^3/uL (4.4-10.8)
[2023-09-01 06:40] LABS: Alanine Aminotransferase 29 U/L (7-40); Albumin 4.2 g/dL (3.2-4.8); Alkaline Phosphatase 87 U/L (46-116); Anion Gap 9 (5-15); Aspartate Aminotransferase 21 U/L (13-40); BUN/Creatinine Ratio 13.8 (10.0-20.0); Blood Urea Nitrogen 9 mg/dL (9-23); Calcium 9.4 mg/dL (8.5-10.1); Carbon Dioxide 20 mmol/L (20-30); Chloride 109 mmol/L (98-107); Glucose 224 mg/dL (74-106); Potassium 4.2 mmol/L (3.5-5.1); Sodium 138 mmol/L (136-145)
[2023-09-01 06:41] LABS: Bilirubin, Total 0.3 mg/dL (0.2-1.0); Total Protein 7.3 g/dL (5.7-8.2)
[2023-09-01] MEDS: PANTOPRAZOLE 40 MG/10 ML VIAL INJ IV SCH (09:22)
[2023-09-01] MEDS: LORATADINE 10 MG TAB PO SCH (09:23)
[2023-09-01] MEDS: AZITHROMYCIN 250 MG TAB PO SCH (09:23)
[2023-09-01] MEDS: SODIUM CHLORIDE 0.9% 1,000 ML IV SCH (11:00)
[2023-09-01] MEDS: levoFLOXacin 750MG 150 ML IV SCH (11:00)
[2023-09-01] MEDS: guaiFENesin 200 MG/10 ML UD PO PRN (11:00)
[2023-09-01] MEDS: methylPREDNISolone SOD SUCC 125 MG/2 ML VL IV SCH (13:45)
[2023-09-02] VITALS (20 sets, daily range): BP systolic 122–139; BP diastolic 49–77; PULSE 75–107; RESP 16–20; TEMP 97.5–98.3; O2SAT 94–100
[2023-09-02 04:40] LABS: Urine Bacteria None Seen /hpf (None Seen)
[2023-09-02 04:44] LABS: Urine Blood TRACE /uL (Negative); Urine Clarity Clear (Clear); Urine Protein, UAD Negative (Negative); Urine Urobilinogen Normal (Negative); Urine WBC <1 /hpf (0 - 5)
[2023-09-02 04:51] LABS: Urine Color STRAW (Yellow)
[2023-09-02] MEDS: ACETAMINOPHEN 325 MG TAB PO PRN (22:10)
[2023-09-02] MEDS: ACETAMINOPHEN 325 MG TAB PO ONE (22:17)
[2023-09-03] VITALS (20 sets, daily range): BP systolic 115–152; BP diastolic 62–77; PULSE 75–94; RESP 16–20; TEMP 97.7–98.3; O2SAT 95–100
[2023-09-03] MEDS: methylPREDNISolone SOD SUCC 40 MG/ML VL IV SCH (21:31)
[2023-09-04] VITALS (12 sets, daily range): BP systolic 130–146; BP diastolic 82–87; PULSE 78–98; RESP 14–20; TEMP 36.7; O2SAT 91–100
[2023-09-04 07:28] LABS: Basophils # (auto) 0 10 ^3/uL (0-0.2); Basophils % (auto) 0.1 % (0.0-2.0); Eosinophils # (auto) 0 10 ^3/uL (0-0.8); Hematocrit 45.8 % (36.0-46.0); Hemoglobin 15.4 g/dL (12.2-16.2); Lymphocytes # (auto) 1.6 10 ^3/uL (0.4-5.4); Lymphocytes % (auto) 10.2 % (10.0-50.0); Mean Corpuscular Hemoglobin 28.3 pg (28.0-32.0); Mean Corpuscular Hgb Conc. 33.6 g/dL (32.0-36.0); Mean Corpuscular Volume 84.2 fL (80.0-100.0); Monocytes # (auto) 0.5 10 ^3/uL (0-1.3); Monocytes % (auto) 3.1 % (0.0-12.0); Neutrophils # (auto) 13.9 10 ^3/uL (1.6-8.6); Neutrophils % (auto) 86.6 % (37.0-80.0); Nucleated Red Blood Cells % 0.1 %; Red Blood Cells 5.44 10^6/uL (4.0-5.20); Red Cell Distribution Width 14.3 % (11.8-14.3); White Blood Cell 16.1 10^3/uL (4.4-10.8)
[2023-09-04] MEDS ORDERED: PRED10TA PO (17:40)
[2023-09-04] MEDS ORDERED: LEVO500T91 PO (17:41)
[2023-09-04] MEDS ORDERED: ALBUAER3 IN (17:42)
[2023-09-04] MEDS ORDERED: FLUT250M2 INH (17:43)
[2023-09-04] MEDS ORDERED: ALBU0.084 NEB (17:44)
== END 2023-09-04 16:20 | disposition home or self-care (01) | DRG 141 ==
LOC: ER 10:32 → TELE 13:10 → TELE-EAST 23:54 → EAST 09-01 10:32
PROVIDERS: ADMIT Nurse Practitioner Family; ATTEND Internal Medicine
DX: J45.901 Unspecified asthma with (acute) exacerbation (principal); E66.9 Obesity, unspecified; I25.10 Atherosclerotic heart disease of native coronary artery without angina pectoris; J06.9 Acute upper respiratory infection, unspecified; I10 Essential (primary) hypertension; Z87.442 Personal history of urinary calculi; Z83.3 Family history of diabetes mellitus; Z82.49 Family history of ischemic heart disease and other diseases of the circulatory system; Z88.8 Allergy status to other drugs, medicaments and biological substances; Z91.041 Radiographic dye allergy status; Z68.31 Body mass index [BMI] 31.0-31.9, adult; Z90.49 Acquired absence of other specified parts of digestive tract
CPT/HCPCS: 36415; 71045; 71046; 80048; 80053; 81001; 84132; 84484; 85025; 93005; 94640; 94644; 96374; 96375; 99291; C9113; G0378; J1956

== ENCOUNTER 2023-10-26 11:19 | Emergency (ER) | payer MEDICAID ==
[~2023-10-26] VITALS: Ht 160 cm; Wt 77.6 kg
[~2023-10-26 11:19] MED LIST changes: -ACET-1079 PO; +ALBU0.084 NEB; -AZIT-43 PO; -CEFD300C2 PO; -CIPR-173 PO; -CYCL-611 PO; -DIPH25CA66 PO; +FLUT250M2 INH; -HYDR-4902 PO; -IBUP-1455 PO; -IBUP-1456 PO; -IBUP200C95 PO; +LEVO500T91 PO; -MUPI2OIN2 EX; -NITR-87 PO; -ONDA-144 PO; -POLY33504 PO; +PRED10TA PO; -PRED20TA2 PO
[2023-10-26 13:48] VITALS: BP 141/63; PULSE 78; RESP 18; TEMP 98.4; O2SAT 98
[2023-10-26] MEDS ORDERED: NAP500T PO (15:01)
[2023-10-26] MEDS: KETOROLAC TROMETH 30 MG/ML 1ML VIAL IM ONE (15:07)
== END 2023-10-26 15:16 | disposition home or self-care (01) ==
LOC: ER 11:19
DX: S39.011A Strain of muscle, fascia and tendon of abdomen, initial encounter (principal); J45.909 Unspecified asthma, uncomplicated; I10 Essential (primary) hypertension; Z90.49 Acquired absence of other specified parts of digestive tract; Z88.6 Allergy status to analgesic agent; Z88.8 Allergy status to other drugs, medicaments and biological substances; Z87.442 Personal history of urinary calculi; X50.9XXA Other and unspecified overexertion or strenuous movements or postures, initial encounter; Y93.89 Activity, other specified; Y92.89 Other specified places as the place of occurrence of the external cause; Y99.8 Other external cause status
CPT/HCPCS: 73502; 96372; 99283; J1885

== ENCOUNTER 2024-04-13 11:32 | Emergency (ER) | payer MEDICAID ==
[~2024-04-13] VITALS: Ht 160 cm; Wt 86.3 kg
[~2024-04-13 11:32] MED LIST changes: +NAP500T PO
[2024-04-13 12:41] LABS: Basophils # (auto) 0.1 10 ^3/uL (0-0.2); Basophils % (auto) 0.7 % (0.0-2.0); Eosinophils # (auto) 0.2 10 ^3/uL (0-0.8); Hematocrit 43.9 % (36.0-46.0); Hemoglobin 15.1 g/dL (12.2-16.2); Lymphocytes # (auto) 2.1 10 ^3/uL (0.4-5.4); Mean Corpuscular Hemoglobin 29.2 pg (28.0-32.0); Mean Corpuscular Hgb Conc. 34.3 g/dL (32.0-36.0); Mean Corpuscular Volume 85.1 fL (80.0-100.0); Monocytes # (auto) 0.5 10 ^3/uL (0-1.3); Monocytes % (auto) 7.3 % (0.0-12.0); Neutrophils # (auto) 4.4 10 ^3/uL (1.6-8.6); Nucleated Red Blood Cells % 0.1 %; Platelet Count (auto) 331 10^3/uL (140-450); Red Blood Cells 5.16 10^6/uL (4.0-5.20); Red Cell Distribution Width 14.3 % (11.8-14.3); White Blood Cell 7.3 10^3/uL (4.4-10.8)
[2024-04-13 12:55] LABS: Urine Bacteria FEW /hpf (None Seen); Urine Blood 1+ /uL (Negative); Urine Clarity Clear (Clear); Urine Protein, UAD Negative (Negative); Urine Specific Gravity 1.005 (1.001-1.035); Urine Squamous Epithelial Cell FEW /hpf (<5); Urine Urobilinogen Normal (Negative); Urine WBC 4 /hpf (0 - 5); Urine pH 6.5 (5.0-9.0)
[2024-04-13 12:58] LABS: Albumin 4.3 g/dL (3.2-4.8); Alkaline Phosphatase 101 U/L (46-116); Anion Gap 7 (5-15); Aspartate Aminotransferase 20 U/L (13-40); Bilirubin, Total 0.5 mg/dL (0.2-1.0); Calcium 10.1 mg/dL (8.7-10.4); Carbon Dioxide 30 mmol/L (20-31); Chloride 104 mmol/L (98-107); Potassium 4.8 mmol/L (3.5-5.1); Sodium 141 mmol/L (136-145); Total Protein 6.8 g/dL (5.7-8.2)
[2024-04-13 12:59] LABS: Alanine Aminotransferase 51 U/L (7-40); Glucose 135 mg/dL (74-106)
[2024-04-13 13:08] LABS: BUN/Creatinine Ratio 21.7 (10.0-20.0); Blood Urea Nitrogen 15 mg/dL (9-23)
[2024-04-13 13:10] LABS: Urine Color Light-Yellow (Yellow)
--- NOTE | 2024-04-13 13:57 | DVH ---
CHEST RADIOGRAPH Indication: dizzy Technique: Single frontal view of the chest was obtained COMPARISON: XY CHEST PORTABLE on DOS: 08/31/23, XY CHEST PORTABLE on DOS: 01/03/23, CXRP on DOS: 09/10/21 FINDINGS: Lines and Tubes: None Lungs: Clear Pleura: No effusion. No pneumothorax. Cardiomediastinal contours: Unremarkable Bones: Unremarkable IMPRESSION: No acute disease.
--- NOTE | 2024-04-13 14:47 | ED.PDOC ---
Musculoskeletal Chief Complaint: Dizziness Primary Care Provider: GEORGINA Allergies: Coded Allergies: Hydralazine (Verified Allergy, Intermediate, 09/10/19) Itching and redness around hands and face. Povidone Iodine (Verified Allergy, Intermediate, BLISTERS, 12/07/19) Home Meds Active Scripts Naproxen (NAPROSYN TABLET) 500 Mg Tb, 1 TAB PO BIDPC for 14 Days, #28 TAB 0 Refills Prov:TREVOR COLMENARES MIXER WET POUR 10/26/23 Albuterol Sulfate (Albuterol Sulfate) 0.083 % Neb, 1 VIAL NEB Q4HPRN for 7 Days, #50 VIAL Prov:BERLIN FAIR MD 09/04/23 Fluticasone-Salmeterol (Advair Diskus 250/50) 1 Puff Ih, 1 PUFF INH BID for 30 Days, #1 INHALER 5 Refills Prov:BERLIN FAIR MD 09/04/23 Albuterol Sulfate (VENTOLIN MDI) 90 Mcg Ih, 90 MCG IN Q6HPRN PRN, #1 INH Prov:BERLIN FAIR MD 09/04/23 Levofloxacin Hemihydrate (LEVAQUIN 500 MG) 500 Mg Tab, 1 TAB PO DAILY for 5 Days, #5 TAB Prov:BERLIN FAIR MD 09/04/23 Prednisone (Prednisone) 10 Mg Tab, 10 MG PO as directed- PRN, #18 MG Prov:BERLIN FAIR MD 09/04/23 Albuterol Sulfate (VENTOLIN MDI) 90 Mcg Ih, 90 MCG IN Q6HP PRN for 7 Days, #1 MCG Prov:GERTRUDIS MARCH MD 09/11/21 Reported Medications Albuterol Sulfate (VENTOLIN MDI) 90 Mcg Ih, 2 PUFF IN Q6HP PRN for SHORTNESS OF BREATH, INH 12/04/19 Mode of Arrival: Ambulatory Past Medical History PAST MEDICAL HISTORY: Asthma, HTN, Kidney Stones, UTI'S Surgical History: Cholecystectomy 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 Family History Family History: Reviewed,noncontributory to illness, Family hx of DM, Family hx of heart abe Social History Smoker: Non-Smoker Alcohol: Occasionally Drugs: Denies Drug Use Lives In: Home X-Ray, Labs, Meds, VS Vital Signs Date Time Temp Pulse Resp B/P (MAP) Pulse Ox O2 Delivery O2 Flow Rate FiO2 04/13/24 12:04 98.0 83 16 161/92 (115) 98 04/13/24 11:42 78 Lab Test 04/13/24 13:24 04/13/24 12:25 04/13/24 11:57 Range/Units Troponin I High Sensitivity < 3 L < 3 L </=34 ng/L White Blood Count 7.3 4.4-10.8 10^3/uL Red Blood Count 5.16 4.0-5.20 10^6/uL Hemoglobin 15.1 12.2-16.2 g/dL Hematocrit 43.9 36.0-46.0 % Mean Corpuscular Volume 85.1 80.0-100.0 fL Mean Corpuscular Hemoglobin 29.2 28.0-32.0 pg Mean Corpuscular Hemoglobin Concent 34.3 32.0-36.0 g/dL Red Cell Distribution Width 14.3 11.8-14.3 % Platelet Count 331 140-450 10^3/uL Mean Platelet Volume 7.8 6.9-10.8 fL Neutrophils (%) (Auto) 60.0 37.0-80.0 % Lymphocytes (%) (Auto) 29.0 10.0-50.0 % Monocytes (%) (Auto) 7.3 0.0-12.0 % Eosinophils (%) (Auto) 3.0 0.0-7.0 % Basophils (%) (Auto) 0.7 0.0-2.0 % Neutrophils # (Auto) 4.4 1.6-8.6 10 ^3/uL Lymphocytes # (Auto) 2.1 0.4-5.4 10 ^3/uL Monocytes # (Auto) 0.5 0-1.3 10 ^3/uL Eosinophils # (Auto) 0.2 0-0.8 10 ^3/uL Basophils # (Auto) 0.1 0-0.2 10 ^3/uL Nucleated Red Blood Cells 0.1 % Sodium Level 141 136-145 mmol/L Potassium Level 4.8 3.5-5.1 mmol/L Chloride Level 104 98-107 mmol/L Carbon Dioxide Level 30 20-31 mmol/L Anion Gap 7 5-15 Blood Urea Nitrogen 15 9-23 mg/dL Creatinine 0.69 0.550-1.02 mg/dL Glomerular Filtration Rate Calc 108 >90 mL/min BUN/Creatinine Ratio 21.7 H 10.0-20.0 Serum Glucose 135 H 74-106 mg/dL Calcium Level 10.1 8.7-10.4 mg/dL Total Bilirubin 0.5 0.2-1.0 mg/dL Aspartate Amino Transferase (AST) 20 13-40 U/L Alanine Aminotransferase (ALT) 51 H 7-40 U/L Alkaline Phosphatase 101 46-116 U/L B-Type Natriuretic Peptide 11.48 0-100 pg/mL Total Protein 6.8 5.7-8.2 g/dL Albumin 4.3 3.2-4.8 g/dL Beta HCG, Quantitative 2.5 1.5-4.2 mIU/mL Urine Color Light-yellow Yellow Urine Clarity Clear Clear Urine pH 6.5 5.0-9.0 Urine Specific [place] 1.005 1.001-1.035 Urine Protein Negative Negative Urine Ketones Negative Negative Urine Blood 1+ H Negative /uL Urine Nitrite Negative Negative Urine Bilirubin Negative Negative Urine Urobilinogen Normal Negative mg/dL Urine Leukocyte Esterase 1+ Negative /uL Urine RBC 1 0 - 4 /hpf Urine WBC 4 0 - 5 /hpf Urine Squamous Epithelial Cells Few <5 /hpf Urine Bacteria Few H None Seen /hpf Urine Glucose Normal Normal mg/dL I personally scribed for EMI DUNCAN DO ([facility]) on 04/13/24 at 14:47. Electronically submitted by Alfred Sidhu ([facility]). I personally scribed for EMI [facility]UNCAN DO ([facility] on 04/13/24 at 14:54. Electronically submitted by Alfred Sidhu ([facility] EIM DUNCAN DO Apr 13, 2024 14:47
--- NOTE | 2024-04-13 14:57 | ED.PDOC ---
HPI (NEURO) HPI Comments HPI: 48y F who presents to the ED for chief complaint of dizziness. Pt states she is having the following : - pt has been having dizziness for the last two weeks intermittent in nature. She describes it as vertigo like presentation where she feels things are moving around her when she stands up. Denies any other associated symptoms. Patient just completed a course of prednisone last week for unknown reason. Patient has been noticing some minimal puffiness in her bilateral upper forearms and hands. - pt denies any associated injury or fall VITALS: Temp: 98.0F RR: 16 02 sat : 98% on room air HR: 83 BP: 161/92 PMH: asthma htn, kidney stone, uti, cad, PSH: gallbladder, angioplasty Social history: denies tobacco use, denies ETOH use, denies drug use Medications: prednisone Allergies: denies HPI: Poor Historian. Past Medcial History: Past Surgical History: REVIEW OF SYSTEMS: CONSTITUTIONAL: Denies acute: fever, diaphoresis, chills, generalized weakness. HEAD: Denies acute: headache, photophobia Eyes: Denies acute: Double vision, vision loss, eye pain, eye discharge. EARS: Denies acute: tinnitus, hearing loss, ear discharge, ear pain, THROAT: Denies acute: sore throat, swelling, difficulty swallowing , pain with swallowing, change in voice. NECK: Denies acute: neck pain, neck swelling, stiff neck. HEART: Denies acute : chest pain, palpitations, LUNGS: Denies acute: SOB, wheezing, cough, hemoptysis ABDOMEN: Denies acute: abdominal pain, Nausea, Vomiting, diarrhea, melena , hematemesis, hematochezia SKIN: Denies acute: rash, redness, lesions, itchiness. EXTREMITIES: Denies acute: calf pain, numbness, tingling, weakness, Denies acute: Low back pain. Neuro: Denies acute: focal neurological deficit, motor or sensory focal neurological deficit, tremors, seizure like activity, confusion, change in mental status, loss of bowel or bladder function, cauda equina like symptoms. : Denies acute: dysuria, hematuria, flank pain, increase in urinary frequency. PSYCH: Denies acute: hallucination, suicidal ideation, homicidal ideation. FEMALE: Denies acute: abnormal vaginal bleeding, foul odor, unusual discharge. PHYSICAL EXAM: General: no acute distress, awake and alert. Head: normocephalic, atraumatic. Neck: supple, trachea is midline, no swelling. Throat: Normal phonation. Eyes:, no erythema, no purulent discharge, no proptosis, no icterus. Heart: regular rate, regular rhythm, no significant murmur appreciated. Lungs: no apparent respiratory distress, Able to speak in full sentences. No wheezing, no rhonchi, no crackles. No stridors Clear to auscultation bilaterally. Abdomen: non tender to palpation, non distended, soft, no guarding, no rebound, + bowel sounds. Neuro: Awake, Alert, oriented to name, self, situation, follows commands GCS=15. Speech is normal. Skin: no petechia, no purpura, no cyanosis, non-pale, not jaundice. Lower extremities: --no - Pitting edema no deformity, no focal swelling, no calf TTP. Makes eye contact. moves all four extremities. Face: no apparent facial droop. Ambulating in the ED independently. 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 Was a procedure done?: No X-Ray, Labs, Meds, VS Vital Signs Date Time Temp Pulse Resp B/P (MAP) Pulse Ox O2 Delivery O2 Flow Rate FiO2 04/13/24 21:27 98.5 91 16 151/82 (105) 97 98.5 04/13/24 15:00 85 131/93 04/13/24 14:59 81 163/82 04/13/24 14:56 80 144/79 04/13/24 14:56 80 17 144/79 (100) 99 04/13/24 14:56 80 17 99 Room Air 04/13/24 12:04 98.0 83 16 161/92 (115) 98 04/13/24 11:42 78 Lab Test 04/13/24 13:24 04/13/24 12:25 04/13/24 11:57 Range/Units Troponin I High Sensitivity < 3 L < 3 L </=34 ng/L White Blood Count 7.3 4.4-10.8 10^3/uL Red Blood Count 5.16 4.0-5.20 10^6/uL Hemoglobin 15.1 12.2-16.2 g/dL Hematocrit 43.9 36.0-46.0 % Mean Corpuscular Volume 85.1 80.0-100.0 fL Mean Corpuscular Hemoglobin 29.2 28.0-32.0 pg Mean Corpuscular Hemoglobin Concent 34.3 32.0-36.0 g/dL Red Cell Distribution Width 14.3 11.8-14.3 % Platelet Count 331 140-450 10^3/uL Mean Platelet Volume 7.8 6.9-10.8 fL Neutrophils (%) (Auto) 60.0 37.0-80.0 % Lymphocytes (%) (Auto) 29.0 10.0-50.0 % Monocytes (%) (Auto) 7.3 0.0-12.0 % Eosinophils (%) (Auto) 3.0 0.0-7.0 % Basophils (%) (Auto) 0.7 0.0-2.0 % Neutrophils # (Auto) 4.4 1.6-8.6 10 ^3/uL Lymphocytes # (Auto) 2.1 0.4-5.4 10 ^3/uL Monocytes # (Auto) 0.5 0-1.3 10 ^3/uL Eosinophils # (Auto) 0.2 0-0.8 10 ^3/uL Basophils # (Auto) 0.1 0-0.2 10 ^3/uL Nucleated Red Blood Cells 0.1 % Sodium Level 141 136-145 mmol/L Potassium Level 4.8 3.5-5.1 mmol/L Chloride Level 104 98-107 mmol/L Carbon Dioxide Level 30 20-31 mmol/L Anion Gap 7 5-15 Blood Urea Nitrogen 15 9-23 mg/dL Creatinine 0.69 0.550-1.02 mg/dL Glomerular Filtration Rate Calc 108 >90 mL/min BUN/Creatinine Ratio 21.7 H 10.0-20.0 Serum Glucose 135 H 74-106 mg/dL Calcium Level 10.1 8.7-10.4 mg/dL Total Bilirubin 0.5 0.2-1.0 mg/dL Aspartate Amino Transferase (AST) 20 13-40 U/L Alanine Aminotransferase (ALT) 51 H 7-40 U/L Alkaline Phosphatase 101 46-116 U/L B-Type Natriuretic Peptide 11.48 0-100 pg/mL Total Protein 6.8 5.7-8.2 g/dL Albumin 4.3 3.2-4.8 g/dL Beta HCG, Quantitative 2.5 1.5-4.2 mIU/mL Urine Color Light-yellow Yellow Urine Clarity Clear Clear Urine pH 6.5 5.0-9.0 Urine Specific [place] 1.005 1.001-1.035 Urine Protein Negative Negative Urine Ketones Negative Negative Urine Blood 1+ H Negative /uL Urine Nitrite Negative Negative Urine Bilirubin Negative Negative Urine Urobilinogen Normal Negative mg/dL Urine Leukocyte Esterase 1+ Negative /uL Urine RBC 1 0 - 4 /hpf Urine WBC 4 0 - 5 /hpf Urine Squamous Epithelial Cells Few <5 /hpf Urine Bacteria Few H None Seen /hpf Urine Glucose Normal Normal mg/dL Current Medications Medications (Trade) Dose Ordered Sig/Elia Route Start Time Stop Time Status Last Admin Sodium Chloride 1,000 ml @ 1,000 mls/hr Q1H ONCE IV 04/13/24 15:15 04/13/24 16:14 DC 04/13/24 15:15 Meclizine HCl (Antivert Tablet) 25 mg ONCE ONCE PO 04/13/24 15:15 04/13/24 15:16 DC 04/13/24 15:21 Time of 1ST Reevaluation: 20:26 Reevaluation 1ST: Improved Patient Education/Counseling: Diagnosis, Treatment Family Education/Counseling: No Family Present Comments Patient presented with the above HPI.-- dizziness---workup was initiated. patient was found with the above mentioned diagnosis. the following medications were ordered: none the following tests were ordered: troponin x 3, chest x-ray, UA, beta HCG, CMP, CBC, BNP, EKGx1 Patient ED course and VS have been stabilized. Patient has been reassessed in the ED and remained in a stable condition. Patient has been observed in the ED adequate length of time to insure improvement/stability. Escalation of care considered: Consideration of escalation to observation or admission. Patient was DISCHARGED home in a stable condition. All the reports of any imaging studies that were ordered by myself were reviewed by myself. Departure 1 Departure Time of Disposition: 20:23 Impression: Primary Impression: Medication adverse effect Additional Impressions: Adverse effect of prednisone Vertigo Acute UTI Disposition: HOME / SELF CARE / HOMELESS Condition: Stable Additional Instructions: Additional discharge instructions: You MUST follow-up with your primary care/family doctor in 1 to 2 days. If you are unable to see your primary care/family doctor, please return to our emergency room for re-assessment and re-evaluation in 1 to 2 days. Return to the emergency room here in our facility or to the nearest ER [facility] if your symptoms change or worsen. CONSULTATIONS: you MUST Follow-up for consultation as soon as possible with: -ENT and Neurology and cardiology in 1-2 days. Please call for appointment You MUST call the consultants office yourself to make an appointment. You may need to arrange that through your insurance and/or your primary/family doctor. If you are unable to see the oracle identity management consultant in 1 to 2 days, you must return to our emergency room (or any other ER of your choice) for re-assessment and re- evaluation. Adequate fluid hydration. e-Prescriptions Nitrofurantoin Monohydrate Mac (Macrobid) 100 Mg Cap 100 MG PO BID for 7 Days, #14 CAP Prov: EMI DUNCAN DO 04/13/24 Meclizine HCl (Meclizine 25) 25 Mg Tab 25 MG PO TIDPRN PRN for 3 Days, #9 TAB Prov: EMI DUNCAN DO 04/13/24 Discharged With: Self Critical Care Note Critical Care Time?: No Heart Score Heart Score: Heart Score Response (Comments) Value History N/A 0 EKG N/A 0 Age N/A 0 Risk Factors N/A 0 Troponin N/A 0 Total 0 I personally scribed for EMI DUNCAN DO ([email or web address]) on 04/13/24 at 14:57. Electronically submitted by Alfred Sidhu ([employer]). I personally scribed for EMI DUNCAN DO ([email or web address]) on 04/13/24 at 22:19. Electronically submitted by Alfred Sidhu ([employer]). EMI DUNCAN DO Apr 13, 2024 14:57
[2024-04-13] MEDS: SODIUM CHLORIDE 0.9% 1,000 ML IV ONE (15:15)
[2024-04-13] MEDS: MECLIZINE HCL 25 MG TAB PO ONE (15:21)
[2024-04-13] MEDS ORDERED: NITR-87 PO (20:27)
[2024-04-13] MEDS ORDERED: MECL1TAB42 PO (20:27)
[2024-04-13 21:27] VITALS: BP 151/82; PULSE 91; RESP 16; TEMP 98.5; O2SAT 97
--- NOTE | 2024-04-16 07:24 | ECG ---
[facility] Test Date: 2024-04-13 Test Time: 11:42:55 Pat Name: HERI SAINZ Department: ER Room: Gender: F Routeman: STACY : 1975 Requested By: EMI DUNCAN Order Number: [id number] Reading MD: Dutch Soria Measurements Intervals [place] Rate: 78 P: 74 AK: 176 QRS: 51 QRSD: 78 T: 7 QT: 365 QTc: 416 Interpretive Statements Sinus rhythm Low voltage, precordial leads Electronically Signed On 04-20-2024 9:46:17 PST by Dutch Soria Please click the below link to view image of tracing.
== END 2024-04-13 21:27 | disposition home or self-care (01) ==
LOC: ER 11:32
DX: R42 Dizziness and giddiness (principal); T38.0X5A Adverse effect of glucocorticoids and synthetic analogues, initial encounter; N39.0 Urinary tract infection, site not specified; J45.909 Unspecified asthma, uncomplicated; Z87.442 Personal history of urinary calculi; Z98.890 Other specified postprocedural states; Y92.89 Other specified places as the place of occurrence of the external cause
CPT/HCPCS: 36415; 71045; 80053; 81001; 83880; 84484; 84702; 85025; 93005; 96360; 99285; J7030; J8597

== ENCOUNTER 2024-05-09 11:57 | Emergency (ER) | payer MEDICAID ==
[~2024-05-09] VITALS: Ht 160 cm; Wt 87.2 kg
[~2024-05-09 11:57] MED LIST changes: +MECL1TAB42 PO; +NITR-87 PO
--- NOTE | 2024-05-09 14:27 | ED.PDOC ---
HPI (NEURO) HPI Comments 48Y F with PMHx asthma presents to ED for chief complaint headache c4npass with bilateral upper extremity/hand numbness and hearing changes. Pt denies chest pain and SOB. Pt states headache is present all over her head and worsens when bending down. Pt states she feels like her headaches previously. Pt saw PCP who told her headaches may be related to her blood pressure. BP during triage 138/103. Chief Complaint: Headache Time Seen by MD: 14:06 Primary Care Provider: NONE Reviewed Notes: Nurses Notes, Medications, Allergies Mode of Arrival: Ambulatory Severity: Moderate Dizziness/Weakness Severity: Does not affect activitie Headache Severity: Moderate Timing: Weeks Duration: Since onset Headache Quality: Throbbing Headache Location: Generalized Numbness Location: (R) Arm, (L) Arm Onset: At rest Circumstances: Spontaneous Symptoms: Numbness, Other History of: None Modifying factors: Nothing Associated Signs and Symptoms: Headache, Numbness Past Medical History PAST MEDICAL HISTORY: Asthma, Kidney Stones, UTI'S Past Medical History (Other): headaches Surgical History: Cholecystectomy 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 Family History Family History: Reviewed,noncontributory to illness, Family hx of DM, Family hx of heart abe Social History Smoker: Non-Smoker Alcohol: Occasionally Drugs: Denies Drug Use Lives In: Home Constitutional: denies: chills, diaphoresis, fatigue, fever, malaise, sweats, weakness, others EENTM: reports: others (difficulty hearing); denies: blurred vision, double vision, ear bleeding, ear discharge, ear drainage, ear pain, ear ringing, eye pain, eye redness, hearing loss, mouth pain, mouth swelling, nasal discharge, nose bleeding, nose congestion, nose pain, photophobia, tearing, throat pain, throat swelling, voice changes Respiratory: denies: cough, hemoptysis, orthopnea, SOB at rest, shortness of breath, SOB with excertion, stridor, wheezing, others Cardiovascular: denies: chest pain, dizzy spells, diaphoresis, Dyspnea on exertion, edema, irregular heart beat, left arm pain, lightheadedness, palpitations, PND, syncope, others Gastrointestinal: denies: abdomen distended, abdominal pain, blood streaked bowels, constipated, diarrhea, dysphagia, difficulty swallowing, hematemesis, melena, nausea, poor appetite, poor fluid intake, rectal bleeding, rectal pain, vomiting, others Genitourinary: denies: abnormal vagina bleeding, burning, dyspareunia, dysuria, flank pain, frequency, hematuria, incontinence, pain, , vagina discharge, urgency, others Neurological: reports: headache, numbness; denies: dizziness, fainting, left sided numbness, left sided weakness, paresthesia, pre-existing deficit, right sided numbness, right sided weakness, seizure, speech problems, tingling, tremors, weakness, others Musculoskeletal: denies: back pain, gout, joint pain, joint swelling, muscle pain, muscle stiffness, neck pain, others Integumetry: denies: bruises, change in color, change in hair/nails, dryness, laceration, lesions, lumps, rash, wounds, others Allergic/Immunocompromised: denies: Difficulty Healing, Frequent Infections, Hives, Itching, others Hematologic/Lymphatic: denies: anemia, blood clots, easy bleeding, easy bruising, swollen glands, others Endocrine: denies: excessive hunger, excessive sweating, excessive thirst, excessive urination, flushing, intolerance to cold, intolerance to heat, unexplained weight gain, unexplained weight loss, others Psychiatric: denies: anxiety, bipolar disorder, depression, hopeless, panic disorder, schizophrenia, sleepless, suicidal, others All Other Systems: Reviewed and Negative Physical Exam General Appearance: No Apparent Distress, Normal HEENT: Normal ENT Inspection, Pharynx Normal, TMs Normal Neck: Full Range of Motion, Non-Tender, Normal, Normal Inspection Respiratory: Chest Non-Tender, Lungs Clear, No Accessory Muscle Use, No Respiratory Distress, Normal Breath Sounds Cardiovascular: No Edema, No JVD, No Murmur, No Gallop, Normal Peripheral Pulses, Regular Rate/Rhythm Breast Exam: Deferred Gastrointestinal: No Organomegaly, Non Tender, No Pulsatile Mass, Normal Bowel Sounds, Soft Genitalia: Deferred Pelvic: Deferred Rectal: Deferred Extremities: No calf tenderness, Normal capillary refill, Normal inspection, Normal range of motion, Non-tender, No pedal edema Musculoskeletal : Apperance: Normal Neurologic: Alert, willow specialists II-XII nml as Tested, No Motor Deficits, Normal Affect, Normal Mood, No Sensory Deficits Cerebellar Function: Normal Reflexes: Normal Skin: Dry, Normal Color, Warm Lymphatic: No Adenopathy Was a procedure done? Was a procedure done?: No Differential Diagnosis (SZ) Headache: Cluster, Migraine, Closed Head Injury, Carbon Monoxide Toxicity, CVA, Epidural Hemorrhage, Intracerebral Hemorrhage, Subarachnoid Hemorrhage, Subdural Hemorrhage, Mass Lesion, Meningitis, Sinusitis, Trigeminal Neuralgia X-Ray, Labs, Meds, VS Vital Signs Date Time Temp Pulse Resp B/P (MAP) Pulse Ox O2 Delivery O2 Flow Rate FiO2 05/09/24 16:13 97.6 87 18 148/65 (92) 96 97.6 05/09/24 14:41 93 17 97 Room Air 05/09/24 14:41 98.4 93 17 147/97 (114) 97 98.4 05/09/24 12:41 98.6 104 18 138/103 (115) 96 Current Medications Medications (Trade) Dose Ordered Sig/Elia Route Start Time Stop Time Status Last Admin Ketorolac Tromethamine (Toradol Injection) 60 mg ONCE ONCE IM 05/09/24 14:30 05/09/24 14:31 DC 05/09/24 14:39 Time of 1ST Reevaluation: 14:36 Reevaluation 1ST: Unchanged Time of 2ND Reevaluation: 17:40 Reevaluation 2ND: Improved Patient Education/Counseling: Diagnosis, Treatment Family Education/Counseling: No Family Present Additional Information I reviewed the following notes from patient's past medical encounters: [facility] 04/13/2024, 10/26/2023, 06/14/2023, 02/15/2023; [facility] discharge 09/04/2023, 03/02/2021, 12/08/2019 The following tests were ordered, and results were reviewed by me: Additional Information was gathered from interviewing the following independent historians: None. I reviewed and agreed with the following test results read by other providers: I discussed treatment and results with medical personnel. per medical record review, pt was seen for the sme in [address] which was unremarkable Departure 1 Departure Time of Disposition: 17:43 Impression: Primary Impression: Cephalgia Disposition: HOME / SELF CARE / HOMELESS Condition: Good e-Prescriptions Hydrocodone-Acetaminophen (Hydrocodone Bitartrate/AC 5-325 mg) 1 Tab Tab 1 TAB PO Q8HP PRN for 2 Days, #6 TAB Prov: ASHLEIGH CALVILLO MD 05/09/24 Discharged With: Self, Relative Critical Care Note Critical Care Time?: No Stability Stability form required: No Heart Score Heart Score: Heart Score Response (Comments) Value History N/A 0 EKG N/A 0 Age N/A 0 Risk Factors N/A 0 Troponin N/A 0 Total 0 I personally scribed for ASHLEIGH CALVILLO MD ([email or web address]) on 05/09/24 at 14:27. Electronically submitted by Jo Ann Alexander ([email or web address]). ASHLEIGH CALVILLO MD May 09, 2024 14:27
[2024-05-09] MEDS: KETOROLAC TROMETH 60MG/2ML VIAL IM ONE (14:39)
[2024-05-09] MEDS ORDERED: HYDR-4902 PO (17:44)
[2024-05-09] MEDS: HYDROcodone-ACET 10/325MG TAB PO ONE (17:59)
[2024-05-09 18:53] VITALS: TEMP 98
--- NOTE | 2024-05-09 19:26 | DVH ---
EXAM: CT HEAD WITHOUT CONTRAST INDICATION: severe headache TECHNIQUE: CT of the head without intravenous contrast. Radiation Dose : 1. Head: CT Dose: CTDI volume is 53 mGy. Dose-length product is 850 mGy*cm The dose indicators for CT are the volume Computed Tomography (CT) Dose Index (CTDIvol) and the Dose Length Product (DLP), and are measured in units of mGy and mGy-cm, respectively. These indicators are not patient dose, but values generated from the CT scanner acquisition factors. The report includes radiation exposure data for exposures received during this examination. COMPARISON: CT CERVICAL WITHOUT CONTRAST on DOS: 02/15/23, CT HEAD WITHOUT CONTRAST on DOS: 02/15/23 FINDINGS: There is no evidence of acute intracranial hemorrhage, extra-axial collection, mass effect, midline s hift, herniation or hydrocephalus. The ventricles, sulci and cisterns are age appropriate. The love-white differentiation is intact. Patchy periventricular and subcortical white matter hypoattenuation is nonspecific but may be related to small vessel ischemic disease. The visualized paranasal sinuses and mastoid air cells are clear. The surrounding soft tissues and osseous structures are unremarkable. IMPRESSION: 1. No acute intracranial abnormality. Radiation optimization: All CT scans at this facility use at least one of these dose optimization uziel hniques: automated exposure control mA and/or kV adjustment per patient size (includes targeted exam s where dose is matched to clinical indication) or iterative reconstruction.
[2024-05-09 20:02] LABS: Basophils # (auto) 0 10 ^3/uL (0-0.2); Basophils % (auto) 0.3 % (0.0-2.0); Eosinophils # (auto) 0.2 10 ^3/uL (0-0.8); Eosinophils % (auto) 1.5 % (0.0-7.0); Hematocrit 42.9 % (36.0-46.0); Hemoglobin 14.6 g/dL (12.2-16.2); Lymphocytes # (auto) 2.9 10 ^3/uL (0.4-5.4); Lymphocytes % (auto) 26.2 % (10.0-50.0); Mean Corpuscular Hemoglobin 29.1 pg (28.0-32.0); Mean Corpuscular Hgb Conc. 34.1 g/dL (32.0-36.0); Mean Corpuscular Volume 85.3 fL (80.0-100.0); Monocytes # (auto) 0.8 10 ^3/uL (0-1.3); Monocytes % (auto) 7.3 % (0.0-12.0); Neutrophils # (auto) 7.2 10 ^3/uL (1.6-8.6); Neutrophils % (auto) 64.7 % (37.0-80.0); Platelet Count (auto) 348 10^3/uL (140-450); Red Blood Cells 5.03 10^6/uL (4.0-5.20); Red Cell Distribution Width 13.8 % (11.8-14.3); White Blood Cell 11.1 10^3/uL (4.4-10.8)
[2024-05-09 20:18] LABS: Chloride 102 mmol/L (98-107); Sodium 140 mmol/L (136-145)
[2024-05-09 20:19] LABS: Anion Gap 6 (5-15); Calcium 10.2 mg/dL (8.7-10.4)
[2024-05-09 20:24] LABS: BUN/Creatinine Ratio 11.4 (10.0-20.0); Blood Urea Nitrogen 10 mg/dL (9-23)
[2024-05-09 20:25] LABS: Carbon Dioxide 32 mmol/L (20-31); Glucose 153 mg/dL (74-106)
[2024-05-09] MEDS ORDERED: METH-1181 PO (22:14)
[2024-05-10] MEDS: hydrALAZINE HCL 20 MG/ML VL IV ONE (02:11)
[2024-05-10] MEDS: METHOCARBAMOL 500 MG TAB PO ONE (02:16)
[2024-05-10] MEDS: METOCLOPRAMIDE HCL 5MG/ml INJ 2ml VIAL IV ONE (02:17)
[2024-05-10] MEDS: MORPHINE SULFATE 4 MG/ML SYR/VIAL IV ONE (02:18)
[2024-05-10 02:55] VITALS: BP 121/74; PULSE 77; RESP 18; O2SAT 99
--- NOTE | 2024-05-11 08:34 | ECG ---
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
== END 2024-05-10 03:01 | disposition home or self-care (01) ==
LOC: ER 11:57
DX: R51.9 Headache, unspecified (principal); J45.909 Unspecified asthma, uncomplicated; Z90.49 Acquired absence of other specified parts of digestive tract; Z79.899 Other long term (current) drug therapy
CPT/HCPCS: 36415; 70450; 80048; 83880; 84484; 84702; 85025; 93005; 96372; 96374; 96375; 99285; J1885; J2270; J2765

== ENCOUNTER 2024-08-22 09:07 | Emergency (ER) | payer MEDICAID ==
[~2024-08-22] VITALS: Ht 165.1 cm; Wt 95.8 kg
[~2024-08-22 09:07] MED LIST changes: +HYDR-4902 PO; +METH-1181 PO
--- NOTE | 2024-08-22 11:16 | ED.PDOC ---
GI ASSESSMENT HPI Comments 48 year old female presents to the ED with chief complaint of abdominal pain. Patient reports that she has been experiencing epigastric abdominal pressure for the past 3 days with associated nausea and vomiting. Patient states she had an ultrasound performed 2 weeks ago confirming a hernia. Patient denies any diarrhea, dizziness, SOB, headache, fever, chills, or dysuria. Chief Complaint: Abdominal Pain Time Seen by MD: 11:15 Primary Care Provider: ? Reviewed Notes: Nurses Notes, Medications, Allergies Allergies: Coded Allergies: Hydralazine (Verified Allergy, Intermediate, 09/10/19) Itching and redness around hands and face. Povidone Iodine (Verified Allergy, Intermediate, BLISTERS, 12/07/19) Home Meds Active Scripts Methocarbamol (Methocarbamol) 500 Mg Tab, 1000 MG PO Q8HP PRN, #30 TAB prn neck pain/muscle spasm Prov:SARMAD CRISTOBAL MD 05/09/24 Hydrocodone-Acetaminophen (Hydrocodone Bitartrate/AC 5-325 mg) 1 Tab Tab, 1 TAB PO Q8HP PRN for 2 Days, #6 TAB Prov:ASHLEIGH CALVILLO MD 05/09/24 Nitrofurantoin Monohydrate Mac (Macrobid) 100 Mg Cap, 100 MG PO BID for 7 Days, #14 CAP Prov:EMI DUNCAN DO 04/13/24 Meclizine HCl (Meclizine 25) 25 Mg Tab, 25 MG PO TIDPRN PRN for 3 Days, #9 TAB Prov:EMI DUNCAN DO 04/13/24 Naproxen (NAPROSYN TABLET) 500 Mg Tb, 1 TAB PO BIDPC for 14 Days, #28 TAB 0 Refills Prov:TREVOR COLMENARES NP 10/26/23 Albuterol Sulfate (Albuterol Sulfate) 0.083 % Neb, 1 VIAL NEB Q4HPRN for 7 Days, #50 VIAL Prov:BERLIN FAIR MD 09/04/23 Fluticasone-Salmeterol (Advair Diskus 250/50) 1 Puff Ih, 1 PUFF INH BID for 30 Days, #1 INHALER 5 Refills Prov:BERLIN FAIR MD 09/04/23 Albuterol Sulfate (VENTOLIN MDI) 90 Mcg Ih, 90 MCG IN Q6HPRN PRN, #1 INH Prov:BERLIN FAIR MD 09/04/23 Levofloxacin Hemihydrate (LEVAQUIN 500 MG) 500 Mg Tab, 1 TAB PO DAILY for 5 Days, #5 TAB Prov:BERLIN FAIR MD 09/04/23 Prednisone (Prednisone) 10 Mg Tab, 10 MG PO as directed- PRN, #18 MG Prov:BERLIN FAIR MD 09/04/23 Albuterol Sulfate (VENTOLIN MDI) 90 Mcg Ih, 90 MCG IN Q6HP PRN for 7 Days, #1 MCG Prov:GERTRUDIS MARCH MD 09/11/21 Reported Medications Albuterol Sulfate (VENTOLIN MDI) 90 Mcg Ih, 2 PUFF IN Q6HP PRN for SHORTNESS OF BREATH, INH 12/04/19 Information Source: Patient Mode of Arrival: Ambulatory Timing: Days Duration: Since onset Prehospital treatment: None Quality: Cramping Vomitus: Watery Stool: Normal Severity: Moderate Recent: None Recent Hx of: None Pain Location: Epigastric Modifying Factors: Nothing Associated sign and symptoms: Nausea, Vomiting, Abdominal Pain Past Medical History PAST MEDICAL HISTORY: Asthma, Kidney Stones, UTI'S Past Medical History (Other): Hernia 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 History: 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 Family History Family History: Reviewed,noncontributory to illness, Family hx of DM, Family hx of heart abe Social History Smoker: Non-Smoker Alcohol: Occasionally Drugs: Denies Drug Use Lives In: Home Constitutional: denies: chills, diaphoresis, fatigue, fever, malaise, sweats, weakness, others EENTM: denies: blurred vision, double vision, ear bleeding, ear discharge, ear drainage, ear pain, ear ringing, eye pain, eye redness, hearing loss, mouth pain, mouth swelling, nasal discharge, nose bleeding, nose congestion, nose pa in, photophobia, tearing, throat pain, throat swelling, voice changes, others Respiratory: denies: cough, hemoptysis, orthopnea, SOB at rest, shortness of breath, SOB with excertion, stridor, wheezing, others Cardiovascular: denies: chest pain, dizzy spells, diaphoresis, Dyspnea on exertion, edema, irregular heart beat, left arm pain, lightheadedness, palpitations, PND, syncope, others Gastrointestinal: reports: abdominal pain, nausea, vomiting; denies: abdomen distended, blood streaked bowels, constipated, diarrhea, dysphagia, difficulty swallowing, hematemesis, melena, poor appetite, poor fluid intake, rectal bleeding, rectal pain, others Genitourinary: denies: abnormal vagina bleeding, burning, dyspareunia, dysuria, flank pain, frequency, hematuria, incontinence, pain, , vagina discharge, urgency, others Neurological: denies: dizziness, fainting, headache, left sided numbness, left sided weakness, numbness, paresthesia, pre-existing deficit, right sided numbness, right sided weakness, seizure, speech problems, tingling, tremors, weakness, others Musculoskeletal: denies: back pain, gout, joint pain, joint swelling, muscle pain, muscle stiffness, neck pain, others Integumetry: denies: bruises, change in color, change in hair/nails, dryness, laceration, lesions, lumps, rash, wounds, others Allergic/Immunocompromised: denies: Difficulty Healing, Frequent Infections, Hives, Itching, others Hematologic/Lymphatic: denies: anemia, blood clots, easy bleeding, easy bruising, swollen glands, others Endocrine: denies: excessive hunger, excessive sweating, excessive thirst, excessive urination, flushing, intolerance to cold, intolerance to heat, unexplained weight gain, unexplained weight loss, others Psychiatric: denies: anxiety, bipolar disorder, depression, hopeless, panic disorder, schizophrenia, sleepless, suicidal, others All Other Systems: Reviewed and Negative Physical Exam General Appearance: Moderate Distress, Obese HEENT: Normal ENT Inspection, PERRL/EOMI Neck: Full Range of Motion, Non-Tender, Normal, Normal Inspection Respiratory: Chest Non-Tender, Lungs Clear, No Accessory Muscle Use, No Respiratory Distress, Normal Breath Sounds Cardiovascular: No Edema, No JVD, No Murmur, No Gallop, Normal Peripheral Pulses, Regular Rate/Rhythm Breast Exam: Deferred Gastrointestinal: Epigastric, No Organomegaly, No Pulsatile Mass, Normal Bowel Sounds, Soft, Tenderness Genitalia: Deferred Pelvic: Deferred Rectal: Deferred Extremities: No calf tenderness, Normal capillary refill, Normal inspection, Normal range of motion, Non-tender, No pedal edema Musculoskeletal : Apperance: Normal Neurologic: Alert, email operations manager II-XII nml as Tested, No Motor Deficits, Normal Affect, Normal Mood, No Sensory Deficits Cerebellar Function: Normal Reflexes: Normal Skin: Dry, Normal Color, Warm Peripheral Pulses: 1+ carotid (R), 1+ carotid (L) Lymphatic: No Adenopathy Was a procedure done? Was a procedure done?: No GI differential Dx Differential Diagnosis: Cholecystitis, Diverticular disease, Gastritis/PUD, Gastroenteritis, Hernia, Inflammatory BD, Pancreatitis, Dehydration, Diabetes/ DKA, Drug toxicity, Electrolyte Imbalance, Food Poisoning, Renal Failure, Anemia X-Ray, Labs, Meds, VS Vital Signs Date Time Temp Pulse Resp B/P (MAP) Pulse Ox O2 Delivery O2 Flow Rate FiO2 08/22/24 15:24 74 22 140/92 08/22/24 12:39 74 18 130/94 08/22/24 11:58 78 20 126/97 08/22/24 11:40 98.0 71 20 126/97 (107) 97 98.0 08/22/24 11:40 71 20 97 Room Air* 0 21 08/22/24 09:17 99.2 105 20 141/66 (91) 97 99.2 Lab Test 08/22/24 16:13 08/22/24 14:19 08/22/24 12:52 Range/Units Troponin I High Sensitivity Pending < 3 L < 3 L </=34 ng/L White Blood Count 6.1 4.4-10.8 10^3/uL Red Blood Count 5.49 H 4.0-5.20 10^6/uL Hemoglobin 15.2 12.2-16.2 g/dL Hematocrit 45.4 36.0-46.0 % Mean Corpuscular Volume 82.6 80.0-100.0 fL Mean Corpuscular Hemoglobin 27.7 L 28.0-32.0 pg Mean Corpuscular Hemoglobin Concent 33.5 32.0-36.0 g/dL Red Cell Distribution Width 14.3 11.8-14.3 % Platelet Count 355 140-450 10^3/uL Mean Platelet Volume 8.0 6.9-10.8 fL Neutrophils (%) (Auto) 52.4 37.0-80.0 % Lymphocytes (%) (Auto) 36.6 10.0-50.0 % Monocytes (%) (Auto) 6.8 0.0-12.0 % Eosinophils (%) (Auto) 3.8 0.0-7.0 % Basophils (%) (Auto) 0.4 0.0-2.0 % Neutrophils # (Auto) 3.2 1.6-8.6 10 ^3/uL Lymphocytes # (Auto) 2.2 0.4-5.4 10 ^3/uL Monocytes # (Auto) 0.4 0-1.3 10 ^3/uL Eosinophils # (Auto) 0.2 0-0.8 10 ^3/uL Basophils # (Auto) 0 0-0.2 10 ^3/uL Nucleated Red Blood Cells 0.1 % Sodium Level 140 136-145 mmol/L Potassium Level 4.0 3.5-5.1 mmol/L Chloride Level 105 98-107 mmol/L Carbon Dioxide Level 28 20-31 mmol/L Anion Gap 7 5-15 Blood Urea Nitrogen 11 9-23 mg/dL Creatinine 0.69 0.550-1.02 mg/dL Glomerular Filtration Rate Calc 108 >90 mL/min BUN/Creatinine Ratio 15.9 10.0-20.0 Serum Glucose 107 H 74-106 mg/dL Calcium Level 9.8 8.7-10.4 mg/dL Magnesium Level 2.0 1.6-2.6 mg/dL Total Bilirubin 0.5 0.2-1.0 mg/dL Aspartate Amino Transferase (AST) 17 13-40 U/L Alanine Aminotransferase (ALT) 44 H 7-40 U/L Alkaline Phosphatase 105 46-116 U/L Total Protein 7.7 5.7-8.2 g/dL Albumin 4.6 3.2-4.8 g/dL Lipase 45 12-53 U/L Current Medications Medications (Trade) Dose Ordered Sig/Elia Route Start Time Stop Time Status Last Admin Morphine Sulfate 3 mg ONCE ONCE IV 08/22/24 12:00 08/22/24 12:01 CO 08/22/24 11:58 Ondansetron HCl (Zofran) 8 mg ONCE ONCE IV 08/22/24 12:00 08/22/24 12:01 CO 08/22/24 11:57 Sodium Chloride 1,000 ml @ 150 mls/hr Q6H40M ONCE IV 08/22/24 12:00 08/22/24 18:39 08/22/24 11:58 Morphine Sulfate 2 mg ONCE ONCE IV 08/22/24 15:15 08/22/24 15:16 DC 08/22/24 15:24 Ondansetron HCl (Zofran) 4 mg ONCE ONCE IV 08/22/24 15:15 08/22/24 15:16 DC 08/22/24 15:23 X-Ray, Labs, Meds, VS Comment COURSE IN THE EMERGENCY DEPARTMENT EVENTFUL PATIENT CAME IN COMPLAINING OF ABDOMINAL PAIN NAUSEA AND VOMITING AND HISTORY OF HIATAL HERNIA THE CT ABDOMEN AND PELVIS IS NORMAL EXCEPT FOR FATTY LIVER CBC IS NORMAL CMP IS NEGATIVE LIPASE 45 TROPONIN THREE AND THREE PATIENT WILL BE DISCHARGED HOME TO FOLLOW UP WITH PCP OR GI Time of 1ST Reevaluation: 12:15 Reevaluation 1ST: Unchanged Time of 2ND Reevaluation: 16:34 Reevaluation 2ND: Improved Consultation: PCP, GI Patient Education/Counseling: Diagnosis, Treatment, Prognosis, Need For Follow Up Family Education/Counseling: Diagnosis, Treatment, Prognosis, Need For Follow Up, No Family Present Departure 1 Departure Time of Disposition: 16:35 Impression: Primary Impression: Acute abdominal pain Additional Impressions: Hiatal hernia Nausea & vomiting Qualified Codes: R11.2 - Nausea with vomiting, unspecified Disposition: HOME / SELF CARE / HOMELESS Condition: Fair Additional Instructions: NEED TO FOLLOW UP WITH A REGROOVER MEANWHILE CLEAR FLUID DIET FOR THE NEXT 48 HOURS AND FULL LIQUID DIET FOR ANOTHER 48 HOURS e-Prescriptions Aluminum Hydroxide-Mag Carb (Gaviscon Extra Strength) 1 Chw Chw 1 CHW PO Q.I.D. for 10 Days, #40 TAB.CHEW Prov: EUGENIO GREGORIO MD 08/22/24 Metoclopramide Hcl (Reglan) 10 Mg Tab 10 MG PO T.I.D. for 10 Days, #30 TAB Prov: EUGENIO GREGORIO MD 08/22/24 Discharged With: Self Critical Care Note Critical Care Time?: No Stability Stability form required: No Heart Score Heart Score: Heart Score Response (Comments) Value History N/A 0 EKG N/A 0 Age 45-64 1 Risk Factors 1 or 2 risk factors 1 Troponin Normal limit 0 Total 2 I personally scribed for EUGENIO GREGORIO MD ([email or web address]) on 08/22/24 at 11:16. Electronically submitted by Onel Jones ([email or web address]). EUGENIO GREGORIO MD Aug 22, 2024 11:16
[2024-08-22 11:40] VITALS: PULSE 71; RESP 20; O2SAT 97
[2024-08-22] MEDS: ONDANSETRON HCL 4 MG/2 ML VIAL IV ONE ×2 (11:57→15:23)
[2024-08-22] MEDS: MORPHINE SULFATE 4 MG/ML SYR/VIAL IV ONE (11:58)
[2024-08-22] MEDS: SODIUM CHLORIDE 0.9% 1,000 ML IV ONE ×2 (11:58→12:15)
[2024-08-22 13:32] LABS: Basophils # (auto) 0 10 ^3/uL (0-0.2); Basophils % (auto) 0.4 % (0.0-2.0); Eosinophils # (auto) 0.2 10 ^3/uL (0-0.8); Eosinophils % (auto) 3.8 % (0.0-7.0); Hematocrit 45.4 % (36.0-46.0); Hemoglobin 15.2 g/dL (12.2-16.2); Lymphocytes # (auto) 2.2 10 ^3/uL (0.4-5.4); Lymphocytes % (auto) 36.6 % (10.0-50.0); Mean Corpuscular Hemoglobin 27.7 pg (28.0-32.0); Mean Corpuscular Hgb Conc. 33.5 g/dL (32.0-36.0); Mean Corpuscular Volume 82.6 fL (80.0-100.0); Monocytes # (auto) 0.4 10 ^3/uL (0-1.3); Monocytes % (auto) 6.8 % (0.0-12.0); Neutrophils # (auto) 3.2 10 ^3/uL (1.6-8.6); Neutrophils % (auto) 52.4 % (37.0-80.0); Nucleated Red Blood Cells % 0.1 %; Platelet Count (auto) 355 10^3/uL (140-450); Red Blood Cells 5.49 10^6/uL (4.0-5.20); Red Cell Distribution Width 14.3 % (11.8-14.3); White Blood Cell 6.1 10^3/uL (4.4-10.8)
[2024-08-22 13:47] LABS: Alanine Aminotransferase 44 U/L (7-40); Albumin 4.6 g/dL (3.2-4.8); Alkaline Phosphatase 105 U/L (46-116); Anion Gap 7 (5-15); Aspartate Aminotransferase 17 U/L (13-40); BUN/Creatinine Ratio 15.9 (10.0-20.0); Bilirubin, Total 0.5 mg/dL (0.2-1.0); Blood Urea Nitrogen 11 mg/dL (9-23); Calcium 9.8 mg/dL (8.7-10.4); Carbon Dioxide 28 mmol/L (20-31); Chloride 105 mmol/L (98-107); Glucose 107 mg/dL (74-106); Sodium 140 mmol/L (136-145); Total Protein 7.7 g/dL (5.7-8.2)
[2024-08-22] MEDS: IOHEXOL 300 MG/ML 100ML BOTTLE IJ ONE (14:04)
[2024-08-22 14:09] LABS: Lipase 45 U/L (12-53)
--- NOTE | 2024-08-22 14:41 | DVH ---
Exam: CT CT AB PEL WITH IV CON ONLY History: Abdominal pain with intractable vomiting TECHNIQUE: Multiple contiguous axial CT images of the abdomen and pelvis were obtained with intraveno us contrast. The images were reformatted to generate coronal and sagittal reconstructions. 100 cc of Omnipaque 350 contrast was injected intravenously. All CT scans at this medical facility are performed using dose modulation techniques as appropriate t o a performed exam including the following:Automated exposure control was utilized; adjustment of the MA and/or KV according to patient size; and use of iterative reconstruction technique. Radiation Dose Information: CT Dose: CTDI volume is 21.61 mGy. Dose-length product is 1103.71 mGy*cm Comparison: CT AB PEL WITH IV CON ONLY on DOS: 10/16/21 FINDINGS: There are several tiny sub 4 mm left renal calculi. There is no obvious right renal calculus. There is no hydronephrosis. There is no evidence of a ureteral calculus or hydroureter. The gallbladder is surgically absent. There is diffuse fatty infiltration of the liver. The pancrea s, adrenal glands, and spleen appear within normal limits. There is no evidence of abdominal lymphadenopathy. There is no free fluid or free air. The stomach grossly appears unremarkable. The small and large bowel loops demonstrate normal caliber and distribution. A normal appearing appendix is seen in the right lower quadrant abdomen. The abdominal aorta and IVC appear within normal limits. The bladder appears within normal limits the degree of distention. The uterus appears bulky and heter ogeneous likely related to fibroid changes. There is no evidence of a pelvic mass or lymphadenopathy. There is no free fluid collection. Lung bases are clear. There is no acute osseous abnormality. IMPRESSION: 1. There is no acute process in the abdomen and pelvis. 2. Several tiny nonobstructive left renal calculi. 3. Hepatic steatosis. 4. The uterus appears bulky and heterogeneous likely related to fibroid changes. Further evaluation w ith dedicated pelvic ultrasound is recommended. HS:Y
[2024-08-22] MEDS: MORPHINE SULFATE INJ 2 MG/ml SYRG IV ONE (15:24)
[2024-08-22] MEDS ORDERED: METO-281 PO (16:39)
[2024-08-22] MEDS ORDERED: ALUMCHW6 PO (16:39)
[2024-08-22 17:42] VITALS: BP 134/58; PULSE 61; RESP 12; TEMP 98.8; O2SAT 96
== END 2024-08-22 17:46 | disposition home or self-care (01) ==
LOC: ER 09:07
DX: K44.9 Diaphragmatic hernia without obstruction or gangrene (principal); R10.13 Epigastric pain; R11.2 Nausea with vomiting, unspecified; J45.909 Unspecified asthma, uncomplicated; Z90.49 Acquired absence of other specified parts of digestive tract; Z88.8 Allergy status to other drugs, medicaments and biological substances; Z79.899 Other long term (current) drug therapy; Z79.51 Long term (current) use of inhaled steroids
CPT/HCPCS: 36415; 74177; 80053; 83690; 83735; 84484; 85025; 96361; 96374; 96375; 96376; 99285; J2270; J2405; J7030; Q9967

== ENCOUNTER 2024-12-05 16:49 | Emergency (ER) | payer MEDICAID ==
[~2024-12-05] VITALS: Ht 160 cm; Wt 130.0 kg
[~2024-12-05 16:49] MED LIST changes: +ALUMCHW6 PO; +METO-281 PO
[2024-12-05] MEDS: SODIUM CHLORIDE 0.9% 1,000 ML IV ONE (17:15)
[2024-12-05 17:45] LABS: Hematocrit 43.5 % (36.0-46.0); Hemoglobin 15.3 g/dL (12.2-16.2); Mean Corpuscular Hemoglobin 29.4 pg (28.0-32.0); Mean Corpuscular Volume 83.8 fL (80.0-100.0); Nucleated Red Blood Cells % 0.0 %
--- NOTE | 2024-12-05 17:47 | ED.PDOC ---
History of Present Illness HPI Comments 49 yo F w/ PMH of ventral wall hernia presenting for evaluation of acute on chronic mid epigastric pain, nausea/vomiting over the past several months. Pt had an abdominal ultrasound performed 4 months ago that confirmed ventral wall hernia. Has never had an endoscopy. Does not currently take any medications for her stomach. Occasionally takes ibuprofen for the pain. Reports 1 day of worsening mid epigastric pain, a few episodes of vomiting followed by vomiting some dark blood clots. Denies heavy alcohol use. Is still passing flatus from below. No abdominal distention. No prior abdominal surgeries. Chief Complaint: Nausea/Vomiting Time Seen by MD: 16:50 Primary Care Provider: ? Allergies: Coded Allergies: Hydralazine (Verified Allergy, Intermediate, 09/10/19) Itching and redness around hands and face. Povidone Iodine (Verified Allergy, Intermediate, BLISTERS, 12/07/19) Home Meds Active Scripts Alum & Mag Hydrox-Simethicone (Maalox Plus) 30 Ml Ss, 30 ML GT DAILY for 20 Days, #100 ML Prov:GRACIELA GARCIA MD 12/05/24 Famotidine (PEPCID TABLET) 20 Mg Tb, 1 TAB PO DAILY, #40 TAB 5 Refills Prov:GRACIELA GARCIA MD 12/05/24 Aluminum Hydroxide-Mag Carb (Gaviscon Extra Strength) 1 Chw Chw, 1 CHW PO Q.I.D. for 10 Days, #40 TAB.CHEW Prov:EUGENIO GREGORIO MD 08/22/24 Metoclopramide Hcl (Reglan) 10 Mg Tab, 10 MG PO T.I.D. for 10 Days, #30 TAB Prov:EUGENIO GREGORIO MD 08/22/24 Methocarbamol (Methocarbamol) 500 Mg Tab, 1000 MG PO Q8HP PRN, #30 TAB prn neck pain/muscle spasm Prov:SARMAD CRISTOBAL MD 05/09/24 Hydrocodone-Acetaminophen (Hydrocodone Bitartrate/AC 5-325 mg) 1 Tab Tab, 1 TAB PO Q8HP PRN for 2 Days, #6 TAB Prov:ASHLEIGH CALVILLO MD 05/09/24 Nitrofurantoin Monohydrate Mac (Macrobid) 100 Mg Cap, 100 MG PO BID for 7 Days, #14 CAP Prov:EMI DUNCAN DO 04/13/24 Meclizine HCl (Meclizine 25) 25 Mg Tab, 25 MG PO TIDPRN PRN for 3 Days, #9 TAB Prov:EMI DUNCAN DO 04/13/24 Naproxen (NAPROSYN TABLET) 500 Mg Tb, 1 TAB PO BIDPC for 14 Days, #28 TAB 0 Refills Prov:TREVOR COLMENARES NP 10/26/23 Albuterol Sulfate (Albuterol Sulfate) 0.083 % Neb, 1 VIAL NEB Q4HPRN for 7 Days, #50 VIAL Prov:BERLIN FAIR MD 09/04/23 Fluticasone-Salmeterol (Advair Diskus 250/50) 1 Puff Ih, 1 PUFF INH BID for 30 Days, #1 INHALER 5 Refills Prov:BERLIN FAIR MD 09/04/23 Albuterol Sulfate (VENTOLIN MDI) 90 Mcg Ih, 90 MCG IN Q6HPRN PRN, #1 INH Prov:BERLIN FAIR MD 09/04/23 Levofloxacin Hemihydrate (LEVAQUIN 500 MG) 500 Mg Tab, 1 TAB PO DAILY for 5 Days, #5 TAB Prov:BERLIN FAIR MD 09/04/23 Prednisone (Prednisone) 10 Mg Tab, 10 MG PO as directed- PRN, #18 MG Prov:BERLIN FAIR MD 09/04/23 Albuterol Sulfate (VENTOLIN MDI) 90 Mcg Ih, 90 MCG IN Q6HP PRN for 7 Days, #1 MCG Prov:GERTRUDIS MARCH MD 09/11/21 Reported Medications Albuterol Sulfate (VENTOLIN MDI) 90 Mcg Ih, 2 PUFF IN Q6HP PRN for SHORTNESS OF BREATH, INH 12/04/19 Information Source: Patient Mode of Arrival: Ambulatory Severity: Moderate Timing: Days Duration: Intermittent Past Medical History PAST MEDICAL HISTORY: Asthma, Kidney Stones, UTI'S Surgical History: Cholecystectomy 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 Family History Family History: Reviewed,noncontributory to illness, Family hx of DM, Family hx of heart abe Social History Smoker: Non-Smoker Alcohol: Occasionally Drugs: Denies Drug Use Lives In: Home Constitutional: denies: chills, diaphoresis, fatigue, fever, malaise, sweats, weakness, others EENTM: denies: blurred vision, double vision, ear bleeding, ear discharge, ear drainage, ear pain, ear ringing, eye pain, eye redness, hearing loss, mouth pain, mouth swelling, nasal discharge, nose bleeding, nose congestion, nose pain, photophobia, tearing, throat pain, throat swelling, voice changes, others Respiratory: denies: cough, hemoptysis, orthopnea, SOB at rest, shortness of breath, SOB with excertion, stridor, wheezing, others Cardiovascular: denies: chest pain, dizzy spells, diaphoresis, Dyspnea on exertion, edema, irregular heart beat, left arm pain, lightheadedness, palpitations, PND, syncope, others Gastrointestinal: reports: abdominal pain, hematemesis, nausea, vomiting Genitourinary: denies: abnormal vagina bleeding, burning, dyspareunia, dysuria, flank pain, frequency, hematuria, incontinence, pain, , vagina discharge, urgency, others Neurological: denies: dizziness, fainting, headache, left sided numbness, left sided weakness, numbness, paresthesia, pre-existing deficit, right sided numbness, right sided weakness, seizure, speech problems, tingling, tremors, weakness, others Musculoskeletal: denies: back pain, gout, joint pain, joint swelling, muscle pain, muscle stiffness, neck pain, others Integumetry: denies: bruises, change in color, change in hair/nails, dryness, laceration, lesions, lumps, rash, wounds, others Hematologic/Lymphatic: denies: anemia, blood clots, easy bleeding, easy bruising, swollen glands, others Endocrine: denies: excessive hunger, excessive sweating, excessive thirst, excessive urination, flushing, intolerance to cold, intolerance to heat, unex plained weight gain, unexplained weight loss, others Psychiatric: denies: anxiety, bipolar disorder, depression, hopeless, panic disorder, schizophrenia, sleepless, suicidal, others Physical Exam General Appearance: Normal HEENT: NOT DONE Neck: NOT DONE Respiratory: No Accessory Muscle Use, No Respiratory Distress, Normal Breath Sounds Cardiovascular: Normal Peripheral Pulses, Regular Rate/Rhythm Breast Exam: Deferred Gastrointestinal: Epigastric, Normal Bowel Sounds, Other (+ventral wall hernia palpated, soft/reducible; no overlying induration/skin changes) Genitalia: Deferred Pelvic: Deferred Rectal: None Extremities: NOT DONE 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 Was a procedure done?: No Differential Dx Considerations may include: Gastritis vs Peptic Ulcer Disease vs GERD vs Hiatal Hernia vs Ventral Wall Hernia vs Pancreatitis X-Ray, Labs, Meds, VS Vital Signs Date Time Temp Pulse Resp B/P (MAP) Pulse Ox O2 Delivery O2 Flow Rate FiO2 12/05/24 18:05 102.2 111 19 154/89 (110) 97 102.2 12/05/24 18:00 102.2 12/05/24 16:50 100.5 112 18 137/83 96 100.5 Lab Test 12/05/24 17:23 Range/Units White Blood Count 18.1 H 4.4-10.8 10^3/uL Red Blood Count 5.19 4.0-5.20 10^6/uL Hemoglobin 15.3 12.2-16.2 g/dL Hematocrit 43.5 36.0-46.0 % Mean Corpuscular Volume 83.8 80.0-100.0 fL Mean Corpuscular Hemoglobin 29.4 28.0-32.0 pg Mean Corpuscular Hemoglobin Concent 35.1 32.0-36.0 g/dL Red Cell Distribution Width 14.2 11.8-14.3 % Platelet Count 328 140-450 10^3/uL Mean Platelet Volume 8.1 6.9-10.8 fL Neutrophils (%) (Auto) 83.6 H 37.0-80.0 % Lymphocytes (%) (Auto) 9.6 L 10.0-50.0 % Monocytes (%) (Auto) 5.8 0.0-12.0 % Eosinophils (%) (Auto) 0.7 0.0-7.0 % Basophils (%) (Auto) 0.3 0.0-2.0 % Neutrophils # (Auto) 15.2 H 1.6-8.6 10 ^3/uL Lymphocytes # (Auto) 1.7 0.4-5.4 10 ^3/uL Monocytes # (Auto) 1.1 0-1.3 10 ^3/uL Eosinophils # (Auto) 0.1 0-0.8 10 ^3/uL Basophils # (Auto) 0.1 0-0.2 10 ^3/uL Nucleated Red Blood Cells 0.0 % Sodium Level 139 136-145 mmol/L Potassium Level 3.6 3.5-5.1 mmol/L Chloride Level 102 98-107 mmol/L Carbon Dioxide Level 29 20-31 mmol/L Anion Gap 8 5-15 Blood Urea Nitrogen 9 9-23 mg/dL Creatinine 0.98 0.550-1.02 mg/dL Glomerular Filtration Rate Calc 71 >90 mL/min BUN/Creatinine Ratio 9.2 L 10.0-20.0 Serum Glucose 131 H 74-106 mg/dL Calcium Level 9.2 8.7-10.4 mg/dL Total Bilirubin 0.6 0.2-1.0 mg/dL Aspartate Amino Transferase (AST) 36 13-40 U/L Alanine Aminotransferase (ALT) 68 H 7-40 U/L Alkaline Phosphatase 115 46-116 U/L Total Protein 7.7 5.7-8.2 g/dL Albumin 4.8 3.2-4.8 g/dL Lipase 46 12-53 U/L Current Medications Medications (Trade) Dose Ordered Sig/Elia Route Start Time Stop Time Status Last Admin Sodium Chloride 1,000 ml @ 1,000 mls/hr Q1H ONCE IV 12/05/24 17:15 12/05/24 18:14 DC 12/05/24 17:15 Pantoprazole Sodium (Protonix) 40 mg ONCE ONCE IV 12/05/24 17:15 12/05/24 17:16 DC 12/05/24 18:00 Ondansetron HCl (Zofran) 4 mg ONCE ONCE IV 12/05/24 17:15 12/05/24 17:16 DC 12/05/24 18:00 Lidocaine HCl (Xylocaine 2% Viscous) 10 ml ONCE ONCE MT 12/05/24 17:15 12/05/24 17:16 DC 12/05/24 17:59 Al Hydrox/Mg Hydrox/Simethicone (Maalox Plus) 30 ml ONCE ONCE PO 12/05/24 17:15 12/05/24 17:16 DC 12/05/24 17:59 Acetaminophen (Tylenol Tablet) 975 mg ONCE ONCE PO 12/05/24 17:15 12/05/24 17:16 DC 12/05/24 18:00 Time of 1ST Reevaluation: 17:35 Reevaluation 1ST: Improved Time of 2ND Reevaluation: 19:50 (No further episodes of vomiting. Tolerating oral intake without further exacerbation.) Patient Education/Counseling: Diagnosis, Treatment, Need For Follow Up Family Education/Counseling: No Family Present SEPSIS Sepsis Screen Date sepsis recognized/suspect: Dec 05, 2024 Time Sepsis recognized/suspect: 1651 Recent Procedure: No On Antibiotic Therapy: No Respiratory Rate >20: No Heart Rate >90: No Temp<36 C (96.8 F) or >38.3 C: No SBP <90 or MAP <65 mmHG: No New Acute Mental Status Change: No Is the patient on CPAP, BIPAP,: No Vital Signs Date Time Temp Pulse Resp B/P (MAP) Pulse Ox O2 Delivery O2 Flow Rate FiO2 12/05/24 18:05 102.2 111 19 154/89 (110) 97 102.2 12/05/24 18:00 102.2 12/05/24 16:50 100.5 112 18 137/83 96 100.5 Laboratory Tests Test 12/05/24 17:23 White Blood Count 18.1 10^3/uL (4.4-10.8) H Medications Medications Dose Ordered Sig/Elia Route Start Time Stop Time Status Last Admin Dose Admin Acetaminophen 975 mg ONCE ONCE PO 12/05/24 17:15 12/05/24 17:16 DC 12/05/24 18:00 Al Hydrox/Mg Hydrox/Simethicone 30 ml ONCE ONCE PO 12/05/24 17:15 12/05/24 17:16 DC 12/05/24 17:59 Lidocaine HCl 10 ml ONCE ONCE MT 12/05/24 17:15 12/05/24 17:16 DC 12/05/24 17:59 Ondansetron HCl 4 mg ONCE ONCE IV 12/05/24 17:15 12/05/24 17:16 DC 12/05/24 18:00 Pantoprazole Sodium 40 mg ONCE ONCE IV 12/05/24 17:15 12/05/24 17:16 DC 12/05/24 18:00 Sodium Chloride 1,000 ml @ 1,000 mls/hr Q1H ONCE IV 12/05/24 17:15 12/05/24 18:14 DC 12/05/24 17:15 Departure 1 Departure Time of Disposition: 19:52 (49 yo F w/ PMH of ventral wall hernia presenting for acute on chronic epigastric pain, nausea/vomiting. Although the patient has a ventral wall hernia it is soft, reducible, no overlying skin changes to suggest hernia incarceration/strangulation. Pt has no abdominal distention, still passing flatus from below, not concering for bowel obstruction. For this reason does not require CTAP. Pt has had prior cholecystectomy, not concering for acute biliary process. Given mid abdominal location considered pancreatitis, however, lipase today within normal limits, does not seem consistent with acute pancreatits. Given recurrent mid abdominal discomfort seems likely c/w stomach related issues such as gastritis vs PUD vs GERD. Pt is not an alcoholic, takes no blood thinners, not having any bright red blood or large volume hematemesis, CBC today within normal limits. Does not require serial CBCs as I do not suspect significant blood loss. Pt likely has erosive gastritis vs slow bleeding ulcer likely further exacerbated by NSAID use. Pt treated here symptomatically with 1L NS IVF bolus, IV protonix, IV zofran, oral maalox, oral viscous lidocaine and oral tylenol. Observed for short while and no further episodes of vomiting while in the ER. At this time seems suitable for discharge for further outpatient workup and management with strict return precautions for worsening symptoms. Will be given a prescription for pepcid and maalox.) Impression: Primary Impression: Epigastric abdominal pain Additional Impressions: Hematemesis Ventral hernia Gastritis Disposition: HOME / SELF CARE / HOMELESS Condition: Stable Additional Instructions: Consulte con corona mdico de cabecera para que le derive a un gastroenterlogo y le realice anam endoscopia ambulatoria para evaluar la causa de corona dolor. Es probable que tenga problemas estomacales. Evite el ibuprofeno, el naproxeno y la aspirina, ya que pueden empeorar los problemas estomacales. Evite las comidas picantes, la cafena, el alcohol y las comidas pesadas, ya que pueden empeorar shanice sntomas. e-Prescriptions Alum & Mag Hydrox-Simethicone (Maalox Plus) 30 Ml Ss 30 ML GT DAILY for 20 Days, #100 ML Prov: GRACIELA GARCIA MD 12/05/24 Famotidine (PEPCID TABLET) 20 Mg Tb 1 TAB PO DAILY, #40 TAB 5 Refills Prov: GRACIELA GARCIA MD 12/05/24 Discharged With: Self Critical Care Note Critical Care Time?: No Stability Stability form required: ALEXANDREA Laureano MD Dec 05, 2024 17:47
[2024-12-05 17:58] LABS: Alkaline Phosphatase 115 U/L (46-116); Anion Gap 8 (5-15); BUN/Creatinine Ratio 9.2 (10.0-20.0); Calcium 9.2 mg/dL (8.7-10.4); Carbon Dioxide 29 mmol/L (20-31); Chloride 102 mmol/L (98-107); Lipase 46 U/L (12-53); Potassium 3.6 mmol/L (3.5-5.1); Sodium 139 mmol/L (136-145); Total Protein 7.7 g/dL (5.7-8.2)
[2024-12-05 17:59] LABS: Albumin 4.8 g/dL (3.2-4.8); Bilirubin, Total 0.6 mg/dL (0.2-1.0)
[2024-12-05] MEDS: MAALOX PLUS or MAALOX 30 ML PO ONE (17:59)
[2024-12-05] MEDS: LIDOCAINE VISCOUS 2% 15ML UD MT ONE (17:59)
[2024-12-05] MEDS: PANTOPRAZOLE 40 MG/10 ML VIAL INJ IV ONE (18:00)
[2024-12-05] MEDS: ACETAMINOPHEN 325 MG TAB PO ONE (18:00)
[2024-12-05] MEDS: ONDANSETRON HCL 4 MG/2 ML VIAL IV ONE (18:00)
[2024-12-05 18:21] LABS: Alanine Aminotransferase 68 U/L (7-40); Blood Urea Nitrogen 9 mg/dL (9-23); Glucose 131 mg/dL (74-106)
[2024-12-05] MEDS ORDERED: ALUM1SUS16 PO (19:57)
[2024-12-05] MEDS ORDERED: FAMO-68 PO (19:57)
[2024-12-05] MEDS ORDERED: FAMO20TA10 PO (20:00)
[2024-12-05] MEDS ORDERED: MAA30LQ GT (20:00)
[2024-12-05 20:24] VITALS: BP 148/98; PULSE 97; RESP 19; TEMP 100; O2SAT 97
[2024-12-05 20:43] LABS: Urine Budding Yeast OCCASIONAL /hpf (None Seen); Urine Protein, UAD TRACE (Negative)
== END 2024-12-05 20:36 | disposition home or self-care (01) ==
LOC: ER 16:49
DX: K92.0 Hematemesis (principal); K43.9 Ventral hernia without obstruction or gangrene; K29.70 Gastritis, unspecified, without bleeding; J45.909 Unspecified asthma, uncomplicated; Z87.440 Personal history of urinary (tract) infections; Z90.49 Acquired absence of other specified parts of digestive tract; Z79.899 Other long term (current) drug therapy; Z98.890 Other specified postprocedural states
CPT/HCPCS: 36415; 80053; 81001; 83690; 85025; 96361; 96374; 96375; 99285; J2405; J2470; J7030

== ENCOUNTER 2024-12-21 17:36 | Inpatient (IN) | payer MEDICAID ==
[~2024-12-21] VITALS: Ht 160 cm; Wt 93.0 kg
[~2024-12-21 17:36] MED LIST changes: +ALUM1SUS16 PO; +FAMO-68 PO; +FAMO20TA10 PO; +MAA30LQ GT
[2024-12-21 18:21] LABS: Hematocrit 41.7 % (36.0-46.0); Hemoglobin 14.2 g/dL (12.2-16.2); Mean Corpuscular Hemoglobin 28.4 pg (28.0-32.0); Mean Corpuscular Volume 83.5 fL (80.0-100.0); Nucleated Red Blood Cells % 0.0 %
[2024-12-21 18:30] LABS: Chloride 107 mmol/L (98-107); Potassium 4.0 mmol/L (3.5-5.1); Sodium 143 mmol/L (136-145)
[2024-12-21 18:31] LABS: Anion Gap 8 (5-15); Carbon Dioxide 28 mmol/L (20-31)
[2024-12-21 18:32] LABS: Calcium 9.3 mg/dL (8.7-10.4)
--- NOTE | 2024-12-21 18:33 | DVH ---
CHEST RADIOGRAPH Indication: cp Technique: Single frontal view of the chest was obtained Comparison: XY CHEST PORTABLE on DOS: 04/13/24, XY CHEST TWO VIEWS ROUTINE on DOS: 09/02/23, XY CHEST P ORTABLE on DOS: 08/31/23 FINDINGS: Lines and Tubes: None Lungs: No focal consolidation. Pleura: No effusion. No pneumothorax. Cardiomediastinal contours: Unremarkable Bones: No acute osseous abnormality. IMPRESSION: 1. No acute cardiopulmonary disease.
[2024-12-21 18:37] LABS: Glucose 144 mg/dL (74-106)
[2024-12-21 18:54] LABS: BUN/Creatinine Ratio 19.3 (10.0-20.0); Blood Urea Nitrogen 16 mg/dL (9-23)
[2024-12-21] MEDS: SODIUM CHLORIDE 0.9% 500 ML IV ONE (20:00)
[2024-12-21] MEDS: NITROGLYCERIN 2% OINT 1GM PKG TD ONE (20:00)
--- NOTE | 2024-12-21 20:06 | ED.PDOC ---
HPI Comments 47 year old male with PMHx of asthma, HTN, kidney stone,CAD status post PTCA, UTI, presents to the ED for a chief complaint of chest pain radiating radiating to her left arm associated with SOB x 4 days. Patient describes pain as sharp/squeezing, localized to the center of her chest and is constant and worse today. Patient also mentions on light exertion and/or movement, she becomes weak and lightheaded. 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 Patient has not tried taking any pain medication at home. No other associating symptoms reported. Chief Complaint: Chest Pain Time Seen by MD: 19:55 Primary Care Provider: ? Reviewed Notes: Nurses Notes, Medications, Allergies Allergies: Coded Allergies: Hydralazine (Verified Allergy, Intermediate, 09/10/19) Itching and redness around hands and face. Povidone Iodine (Verified Allergy, Intermediate, BLISTERS, 12/07/19) Home Meds Active Scripts Alum & Mag Hydrox-Simethicone (Maalox Plus) 30 Ml Ss, 30 ML GT DAILY for 20 Days, #100 ML Prov:GRACIELA GARCIA MD 12/05/24 Famotidine (PEPCID TABLET) 20 Mg Tb, 1 TAB PO DAILY, #40 TAB 5 Refills Prov:GRACIELA GARCIA MD 12/05/24 Alum & Mag Hydrox-Simethicone (Mylanta Maximum Strength 400-400-40 mg/5Ml) 1 Lelo Lelo, 1 LELO PO AC PRN for 30 Days, #120 ML Prov:ALEXANDREA CARLTON MD 12/05/24 Famotidine (Gnp Acid [employer] Maximum) 20 Mg Tab, 1 TAB PO DAILY for 30 Days, #30 TAB 3 Refills Prov:ALEXANDREA CARLTON MD 12/05/24 Aluminum Hydroxide-Mag Carb (Gaviscon Extra Strength) 1 Chw Chw, 1 CHW PO Q.I.D. for 10 Days, #40 TAB.CHEW Prov:EUGENIO GREGORIO MD 08/22/24 Metoclopramide Hcl (Reglan) 10 Mg Tab, 10 MG PO T.I.D. for 10 Days, #30 TAB Prov:EUGENIO GREGORIO MD 08/22/24 Methocarbamol (Methocarbamol) 500 Mg Tab, 1000 MG PO Q8HP PRN, #30 TAB prn neck pain/muscle spasm Prov:SARMAD CRISTOBAL MD 05/09/24 Hydrocodone-Acetaminophen (Hydrocodone Bitartrate/AC 5-325 mg) 1 Tab Tab, 1 TAB PO Q8HP PRN for 2 Days, #6 TAB Prov:ASHLEIGH CALVILLO MD 05/09/24 Nitrofurantoin Monohydrate Mac (Macrobid) 100 Mg Cap, 100 MG PO BID for 7 Days, #14 CAP Prov:EMI DUNCAN DO 04/13/24 Meclizine HCl (Meclizine 25) 25 Mg Tab, 25 MG PO TIDPRN PRN for 3 Days, #9 TAB Prov:EMI DUNCAN DO 04/13/24 Naproxen (NAPROSYN TABLET) 500 Mg Tb, 1 TAB PO BIDPC for 14 Days, #28 TAB 0 Refills Prov:TREVOR COLMENARES NP 10/26/23 Albuterol Sulfate (Albuterol Sulfate) 0.083 % Neb, 1 VIAL NEB Q4HPRN for 7 Days, #50 VIAL Prov:BERLIN FAIR MD 09/04/23 Fluticasone-Salmeterol (Advair Diskus 250/50) 1 Puff Ih, 1 PUFF INH BID for 30 Days, #1 INHALER 5 Refills Prov:BERLIN FAIR MD 09/04/23 Albuterol Sulfate (VENTOLIN MDI) 90 Mcg Ih, 90 MCG IN Q6HPRN PRN, #1 INH Prov:BERLIN FAIR MD 09/04/23 Levofloxacin Hemihydrate (LEVAQUIN 500 MG) 500 Mg Tab, 1 TAB PO DAILY for 5 Days, #5 TAB Prov:BERLIN FAIR MD 09/04/23 Prednisone (Prednisone) 10 Mg Tab, 10 MG PO as directed- PRN, #18 MG Prov:BERLIN FAIR MD 09/04/23 Albuterol Sulfate (VENTOLIN MDI) 90 Mcg Ih, 90 MCG IN Q6HP PRN for 7 Days, #1 MCG Prov:GERTRUDIS MARCH MD 09/11/21 Reported Medications Albuterol Sulfate (VENTOLIN MDI) 90 Mcg Ih, 2 PUFF IN Q6HP PRN for SHORTNESS OF BREATH, INH 12/04/19 Information Source: Patient Mode of Arrival: Ambulatory Severity: Moderate Timing: Days (4) Duration: Since onset Location: Substernal Radiation: Arm (L) Quality: Sharp Onset: At Rest Cardiac Risk Factors: HTN PE Risk Factors: None History of: Similar pain in past, Angioplasty Modifying Factors: Nothing Associated Signs and Symptoms: SOB Past Medical History PAST MEDICAL HISTORY: Asthma, CAD, Kidney Stones, UTI'S Surgical History: Cholecystectomy, PTCA [employer] F[employer] History: DUB Family History Family History: Reviewed,noncontributory to illness, Family hx of DM, Family hx of heart abe Social History Smoker: Non-Smoker Alcohol: Occasionally Drugs: Denies Drug Use Lives In: Home Constitutional: reports: weakness; denies: chills, diaphoresis, fatigue, fever, malaise, sweats, others EENTM: denies: blurred vision, double vision, ear bleeding, ear discharge, ear drainage, ear pain, ear ringing, eye pain, eye redness, hearing loss, mouth pain, mouth swelling, nasal discharge, nose bleeding, nose congestion, nose pain, photophobia, tearing, throat pain, throat swelling, voice changes, others Respiratory: reports: SOB at rest, shortness of breath; denies: cough, hemoptysis, orthopnea, SOB with excertion, stridor, wheezing, others Cardiovascular: reports: chest pain, left arm pain, lightheadedness; denies: dizzy spells, diaphoresis, Dyspnea on exertion, edema, irregular heart beat, palpitations, PND, syncope, others Gastrointestinal: denies: abdomen distended, abdominal pain, blood streaked bowels, constipated, diarrhea, dysphagia, difficulty swallowing, hematemesis, melena, nausea, poor appetite, poor fluid intake, rectal bleeding, rectal pain, vomiting, others Genitourinary: denies: abnormal vagina bleeding, burning, dyspareunia, dysuria, flank pain, frequency, hematuria, incontinence, pain, , vagina discharge, urgency, others Neurological: reports: dizziness; denies: fainting, headache, left sided numbness, left sided weakness, numbness, paresthesia, pre-existing deficit, right sided numbness, right sided weakness, seizure, speech problems, tingling, tremors, weakness, others Musculoskeletal: denies: back pain, gout, joint pain, joint swelling, muscle pain, muscle stiffness, neck pain, others Integumetry: denies: bruises, change in color, change in hair/nails, dryness, laceration, lesions, lumps, rash, wounds, others Allergic/Immunocompromised: denies: Difficulty Healing, Frequent Infections, Hives, Itching, others Hematologic/Lymphatic: denies: anemia, blood clots, easy bleeding, easy bruising, swollen glands, others Endocrine: denies: excessive hunger, excessive sweating, excessive thirst, excessive urination, flushing, intolerance to cold, intolerance to heat, unexplained weight gain, unexplained weight loss, others Psychiatric: denies: anxiety, bipolar disorder, depression, hopeless, panic dis order, schizophrenia, sleepless, suicidal, others All Other Systems: Reviewed and Negative Physical Exam General Appearance: Mild Distress, Obese HEENT: Other (Pupils and face symmetric. Moist mucous membranes.) Neck: Full Range of Motion, Normal Inspection Respiratory: Lungs Clear, No Accessory Muscle Use, No Respiratory Distress, Normal Breath Sounds Cardiovascular: No Edema, No JVD, Regular Rate/Rhythm Breast Exam: Deferred Gastrointestinal: Non Tender, Soft Genitalia: Deferred Pelvic: Deferred Rectal: Deferred Extremities: Normal inspection, Normal range of motion, Non-tender, No pedal edema Neurologic: Alert (Oriented x4), Normal Affect, Normal Mood, Other (Ambulatory) Cerebellar Function: NOT DONE Reflexes: NOT DONE Skin: Dry, Normal Color, Warm Lymphatic: NOT DONE EKG EKG : Comments Sinus rhythm, rate 82, normal intervals, normal axis, possible old anteroseptal infarct, nonspecific T change. Was a procedure done? Was a procedure done?: No CP Differential Dx Differential Diagnosis: Angina, Anxiety / Panic Attack, PR Differential Diagnosis: CHF Differential Diagnosis: Chest Wall Pain, Costochondritis, Esophageal reflux/spasm, Gastritis, Myocardial Infarction, Pericarditis, Pneumonia X-Ray, Labs, Meds, VS Vital Signs Date Time Temp Pulse Resp B/P (MAP) Pulse Ox O2 Delivery O2 Flow Rate FiO2 12/21/24 17:47 82 12/21/24 17:38 98.2 81 16 167/89 98 98.2 Lab Test 12/21/24 21:30 12/21/24 20:55 12/21/24 19:01 12/21/24 17:55 Range/Units Urine Color Colorless Yellow Urine Clarity Clear Clear Urine pH 6.0 5.0-9.0 Urine Specific [place] 1.007 1.001-1.035 Urine Protein Negative Negative Urine Ketones Negative Negative Urine Blood 2+ H Negative /uL Urine Nitrite Negative Negative Urine Bilirubin Negative Negative Urine Urobilinogen Normal Negative mg/dL Urine Leukocyte Esterase Negative Negative /uL Urine RBC 1 0 - 4 /hpf Urine Microscopic WBC 0-5 /HPF Urine Squamous Epithelial Cells Few <5 /hpf Urine Bacteria None seen None Seen /hpf Urine Glucose Normal Normal mg/dL Urine Test Negative Negative Troponin I High Sensitivity < 3 L < 3 L < 3 L </=34 ng/L White Blood Count 8.3 4.4-10.8 10^3/uL Red Blood Count 4.99 4.0-5.20 10^6/uL Hemoglobin 14.2 12.2-16.2 g/dL Hematocrit 41.7 36.0-46.0 % Mean Corpuscular Volume 83.5 80.0-100.0 fL Mean Corpuscular Hemoglobin 28.4 28.0-32.0 pg Mean Corpuscular Hemoglobin Concent 34.1 32.0-36.0 g/dL Red Cell Distribution Width 14.0 11.8-14.3 % Platelet Count 388 140-450 10^3/uL Mean Platelet Volume 8.3 6.9-10.8 fL Neutrophils (%) (Auto) 54.0 37.0-80.0 % Lymphocytes (%) (Auto) 34.9 10.0-50.0 % Monocytes (%) (Auto) 8.1 0.0-12.0 % Eosinophils (%) (Auto) 2.5 0.0-7.0 % Basophils (%) (Auto) 0.5 0.0-2.0 % Neutrophils # (Auto) 4.5 1.6-8.6 10 ^3/uL Lymphocytes # (Auto) 2.9 0.4-5.4 10 ^3/uL Monocytes # (Auto) 0.7 0-1.3 10 ^3/uL Eosinophils # (Auto) 0.2 0-0.8 10 ^3/uL Basophils # (Auto) 0 0-0.2 10 ^3/uL Nucleated Red Blood Cells 0.0 % Sodium Level 143 136-145 mmol/L Potassium Level 4.0 3.5-5.1 mmol/L Chloride Level 107 98-107 mmol/L Carbon Dioxide Level 28 20-31 mmol/L Anion Gap 8 5-15 Blood Urea Nitrogen 16 9-23 mg/dL Creatinine 0.83 0.550-1.02 mg/dL Glomerular Filtration Rate Calc 87 >90 mL/min BUN/Creatinine Ratio 19.3 10.0-20.0 Serum Glucose 144 H 74-106 mg/dL Calcium Level 9.3 8.7-10.4 mg/dL B-Type Natriuretic Peptide 19.67 0-100 pg/mL PROCEDURE(s): CXRP - CHEST PORTABLE REASON: cp ORDER NUMBER(s): [id number], ACCESSION NUMBER(s): [id number] CHEST RADIOGRAPH Indication: cp Technique: Single frontal view of the chest was obtained Comparison: XY CHEST PORTABLE on DOS: 04/13/24, XY CHEST TWO VIEWS ROUTINE on DOS: 09/02/23, XY CHEST PORTABLE on DOS: 08/31/23 FINDINGS: Lines and Tubes: None Lungs: No focal consolidation. Pleura: No effusion. No pneumothorax. Cardiomediastinal contours: Unremarkable Bones: No acute osseous abnormality. IMPRESSION: 1. No acute cardiopulmonary disease. X-Ray, Labs, Meds, VS Comment 47 year old male with PMHx of asthma, HTN, kidney stone,CAD status post PTCA, UTI, presents to the ED for a chief complaint of chest pain radiating radiating to her left arm associated with SOB x 4 days Vitals remarkable for BP 167/89 Exam unremarkable Rhythm strip independently interpreted by me: Sinus rhythm, rate 82, no ectopy. Chest x-ray unremarkable CBC, basic metabolic panel, BNP and 2 serial troponins unremarkable for any abnormality of acute significance Patient treated with the following in the ED: Aspirin 325 mg p.o., nitro bid 1/2 inch to chest wall, 500 cc 0.9 normal saline IV bolus On re-evaluation, chest pain has improved. Vitals were stable. Plan is to admit the patient for Cardiology evaluation. Time of 1ST Reevaluation: 20:02 Reevaluation 1ST: Unchanged Patient Education/Counseling: Diagnosis, Treatment, Prognosis Family Education/Counseling: No Family Present SEPSIS Sepsis Screen Date sepsis recognized/suspect: Dec 21, 2024 Time Sepsis recognized/suspect: 1741 Recent Procedure: No On Antibiotic Therapy: No Respiratory Rate >20: No Heart Rate >90: No Temp<36 C (96.8 F) or >38.3 C: No SBP <90 or MAP <65 mmHG: No New Acute Mental Status Change: No Is the patient on CPAP, BIPAP,: No Physician Orders Electrocardigram (12/21/24 17:43) Chest Portable (12/21/24 17:44) Stat Ekg For Chest Pain (12/21/24 22:39) Troponin-I Hs (12/22/24 01:39) Vital Signs Date Time Temp Pulse Resp B/P (MAP) Pulse Ox O2 Delivery O2 Flow Rate FiO2 12/21/24 17:47 82 12/21/24 17:38 98.2 81 16 167/89 98 98.2 Laboratory Tests Test 12/21/24 17:55 White Blood Count 8.3 10^3/uL (4.4-10.8) Departure 1 Departure Time of Disposition: 23:00 Impression: Primary Impression: Chest pain with high risk for cardiac etiology Disposition: ADMITTED INPATIENT Admit to: Tele Condition: Guarded Critical Care Note Critical Care Time?: No Stability Stability form required: No Heart Score Heart Score: Heart Score Response (Comments) Value History Highly Suspicious 2 EKG Repolarization Disturb 1 Age 45-64 1 Risk Factors >3 or Hx ASHD 2 Troponin Normal limit 0 Total 6 I personally scribed for SARMAD CRISTOBAL MD ([facility]) on 12/21/24 at 20:06. Electronically submitted by Fadumo Alford ([facility]). SARMAD CRISTOBAL MD Dec 21, 2024 20:06
[2024-12-21 22:40] LABS: Urine Protein, UAD Negative (Negative)
[2024-12-22] VITALS (7 sets, daily range): BP systolic 105–160; BP diastolic 52–109; PULSE 67–75; RESP 16–19; TEMP 97.5–98.8; O2SAT 94–98
--- NOTE | 2024-12-22 00:07 | DVHHPRES ---
History of Present Illness Resident Creating Document: MARS LOMELI RESIDENT History of Present Illness 49-year-old female with previous history of asthma presents to the ER with sudden onset, intermittent central chest pain since last 4 days. The chest pain has no relation with breathing or movement. Patient has a history of cardiac surgery during childhood, possibly due to congenital patent foramen ovale or VSD. Patient is found to have hyperglycemia and high blood pressure in the ER, however patient is not aware of having hypertension or diabetes mellitus. However for borderline high glucose she used to exercise and healthy food according to doctor's advice. She denies any fever, shortness of breaths, abdominal pain, nausea, vomiting or diarrhea. She denies any recent travel history or sick contacts. Past medical history: Asthma, prediabetes Past surgical history: Congenital heart disease surgery Allergies: None Smoking: Never Alcohol occasional Drugs: Never PCP: Code status: Full code Review of Systems Allergies: Coded Allergies: Hydralazine (Verified Allergy, Intermediate, 09/10/19) Itching and redness around hands and face. Povidone Iodine (Verified Allergy, Intermediate, BLISTERS, 12/07/19) Medications Current Medications Medications Dose Ordered Sig/Elia Route Start Time Stop Time Status Last Admin Dose Admin Ondansetron HCl 4 mg Q4HP PRN IV 12/21/24 22:45 Enoxaparin Sodium 40 mg DAILY SC 12/22/24 10:00 Nitroglycerin 0.4 mg Q5MINP PRN SL 12/21/24 22:45 Morphine Sulfate 2 mg Q30M PRN IV 12/21/24 22:45 Exam Vital Signs Vital Signs Date Time Temp Pulse Resp B/P (MAP) Pulse Ox O2 Delivery O2 Flow Rate FiO2 12/21/24 23:55 98.1 73 16 132/83 (99) 97 98.1 Exam Pt is lying on bed General Appearance: Alert, Oriented X3, Cooperative, Mild distress HEENT: Atraumatic, Mucous membranes moist/pink Respiratory: Clear to auscultation, Normal air movement, No added sounds Cardiovascular: No chest wall tenderness, Regular rate, Normal S1, Normal S2, No murmurs Abdominal/ : Active bowel sounds, Soft, no distention, no tenderness Extremities: No edema, Normal pulses, No tenderness/swelling Skin: No Significant rash, except past surgical scars Neuro: Normal speech, sensorimotor deficits none Psych/Mental Status: Mental status NL, Mood NL Nurse was there as middle stitcher during examination Labs/Xrays Labs Test 12/21/24 21:30 12/21/24 20:55 12/21/24 17:55 Range/Units Urine Color Colorless Yellow Urine Clarity Clear Clear Urine pH 6.0 5.0-9.0 Urine Specific [place] 1.007 1.001-1.035 Urine Protein Negative Negative Urine Ketones Negative Negative Urine Blood 2+ H Negative /uL Urine Nitrite Negative Negative Urine Bilirubin Negative Negative Urine Urobilinogen Normal Negative mg/dL Urine Leukocyte Esterase Negative Negative /uL Urine RBC 1 0 - 4 /hpf Urine Microscopic WBC 0-5 /HPF Urine Squamous Epithelial Cells Few <5 /hpf Urine Bacteria None seen None Seen /hpf Urine Glucose Normal Normal mg/dL Urine Test Negative Negative Troponin I High Sensitivity < 3 L </=34 ng/L White Blood Count 8.3 4.4-10.8 10^3/uL Red Blood Count 4.99 4.0-5.20 10^6/uL Hemoglobin 14.2 12.2-16.2 g/dL Hematocrit 41.7 36.0-46.0 % Mean Corpuscular Volume 83.5 80.0-100.0 fL Mean Corpuscular Hemoglobin 28.4 28.0-32.0 pg Mean Corpuscular Hemoglobin Concent 34.1 32.0-36.0 g/dL Red Cell Distribution Width 14.0 11.8-14.3 % Platelet Count 388 140-450 10^3/uL Mean Platelet Volume 8.3 6.9-10.8 fL Neutrophils (%) (Auto) 54.0 37.0-80.0 % Lymphocytes (%) (Auto) 34.9 10.0-50.0 % Monocytes (%) (Auto) 8.1 0.0-12.0 % Eosinophils (%) (Auto) 2.5 0.0-7.0 % Basophils (%) (Auto) 0.5 0.0-2.0 % Neutrophils # (Auto) 4.5 1.6-8.6 10 ^3/uL Lymphocytes # (Auto) 2.9 0.4-5.4 10 ^3/uL Monocytes # (Auto) 0.7 0-1.3 10 ^3/uL Eosinophils # (Auto) 0.2 0-0.8 10 ^3/uL Basophils # (Auto) 0 0-0.2 10 ^3/uL Nucleated Red Blood Cells 0.0 % Sodium Level 143 136-145 mmol/L Potassium Level 4.0 3.5-5.1 mmol/L Chloride Level 107 98-107 mmol/L Carbon Dioxide Level 28 20-31 mmol/L Anion Gap 8 5-15 Blood Urea Nitrogen 16 9-23 mg/dL Creatinine 0.83 0.550-1.02 mg/dL Glomerular Filtration Rate Calc 87 >90 mL/min BUN/Creatinine Ratio 19.3 10.0-20.0 Serum Glucose 144 H 74-106 mg/dL Calcium Level 9.3 8.7-10.4 mg/dL B-Type Natriuretic Peptide 19.67 0-100 pg/mL SEPSIS Sepsis Screen Date sepsis recognized/suspect: Dec 21, 2024 Time Sepsis recognized/suspect: 1741 Recent Procedure: No On Antibiotic Therapy: No Respiratory Rate >20: No Heart Rate >90: No Temp<36 C (96.8 F) or >38.3 C: No SBP <90 or MAP <65 mmHG: No New Acute Mental Status Change: No Is the patient on CPAP, BIPAP,: No Physician Orders Electrocardigram (12/21/24 17:43) Chest Portable (12/21/24 17:44) Stat Ekg For Chest Pain (12/21/24 22:39) Troponin-I Hs (12/22/24 01:39) Admit (12/21/24 22:40) Allergies (12/21/24 22:40) Code Status (12/21/24 22:40) Oxygen Per Hour (12/21/24 22:40) Ondansetron Hcl (Zofran) (12/21/24 22:45) Enoxaparin Sodium (Lovenox) (12/22/24 10:00) Complete Blood Count (12/22/24 04:00) Comprehensive Metabolic Panel (12/22/24 04:00) Nitroglycerin Sublingual (Ntrostat Subli (12/21/24 22:45) Morphine Sulfate Injection (12/21/24 22:45) Oxygen By Nasal Cannula (12/21/24 22:40) Notify Of Changes From Base (12/21/24 22:40) Body Piercer For 24 Hours (12/21/24 22:40) Emergency Dysrhythmia Protocol (12/21/24 22:40) Rhythm Strips Once Every Shift (12/21/24 22:40) Vital Signs Date Time Temp Pulse Resp B/P (MAP) Pulse Ox O2 Delivery O2 Flow Rate FiO2 12/21/24 23:55 98.1 73 16 132/83 (99) 97 98.1 12/21/24 17:47 82 12/21/24 17:38 98.2 81 16 167/89 98 98.2 Laboratory Tests Test 12/21/24 17:55 White Blood Count 8.3 10^3/uL (4.4-10.8) Assessment/Plan Assessment/Plan Chest pain rule out ACS EKG: No ischemic changes Troponin X 3: Negative Asthma Albuterol inhaler Hyperglycemia Serum glucose 144 HbA1c ordered ? Undiagnosed Hypertension Multiple high BP readings, diastolic>100, systolic ranging from 117-177 Lisinopril 10 mg daily started Lipid panel ordered GI prophylaxis: Pantoprazole DVT prophylaxis: Not indicated Diet: Cardiac Goals of care discussed with the patient for more than 27 minutes: Full code status Case discussed with Dr. Montero, patient and RN Plan discussed with: Patient, Other (RN) My Orders Orders - YANI,MARS RESIDENT Procedure Category Date Status Time Stat Ekg For Chest ROBBIN 12/21/24 In Process Pain 22:39 Troponin-I Hs LAB 12/22/24 Logged 01:39 Admit ADMIT 12/21/24 Transmitted 22:40 Allergies ROBBIN 12/21/24 In Process 22:40 Code Status CODE 12/21/24 Transmitted 22:40 Oxygen Per Hour RT 12/21/24 Transmitted 22:40 Ondansetron Hcl PHA 12/21/24 In Process (Zofran) 22:45 Enoxaparin Sodium PHA 12/22/24 In Process (Lovenox) 10:00 Complete Blood Count LAB 12/22/24 Transmitted 04:00 Comprehensive LAB 12/22/24 Transmitted Metabolic Panel 04:00 Nitroglycerin PHA 12/21/24 In Process Sublingual (Ntrostat 22:45 Morphine Sulfate PHA 12/21/24 In Process Injection 22:45 Oxygen By Nasal RT 12/21/24 Transmitted Cannula 22:40 Notify Of Changes ROBBIN 12/21/24 In Process From Base 22:40 Body Piercer For ROBBIN 12/21/24 In Process 24 Hours 22:40 Emergency Dysrhythmia [facility] 12/21/24 In Process Protocol 22:40 Rhythm Strips Once [facility] 12/21/24 In Process Every Shift 22:40 Date of Service: Dec 22, 2024 Billing Provider: MARS LOMELI Common Visit Codes: [id number] INP/OBS CARE (HIGH) Secondary Visit Codes: [id number] CARE PLAN 30 MINUTES MARS LOMELI Dec 22, 2024 00:07
[2024-12-22] MEDS: ONDANSETRON HCL 4 MG/2 ML VIAL IV PRN (02:10)
[2024-12-22] MEDS: MORPHINE SULFATE INJ 2 MG/ml SYRG IV PRN ×2 (02:14→14:33)
[2024-12-22] MEDS: NITROGLYCERIN 0.4 MG SL TAB SL PRN (02:15)
[2024-12-22] MEDS: LISINOPRIL 5 MG TAB PO ONE (04:32)
[2024-12-22 07:32] LABS: Hematocrit 40.6 % (36.0-46.0); Hemoglobin 14.1 g/dL (12.2-16.2); Mean Corpuscular Hemoglobin 29.3 pg (28.0-32.0); Mean Corpuscular Volume 84.2 fL (80.0-100.0); Nucleated Red Blood Cells % 0.0 %
[2024-12-22 07:47] LABS: Albumin 4.3 g/dL (3.2-4.8); Alkaline Phosphatase 83 U/L (46-116); Anion Gap 10 (5-15); BUN/Creatinine Ratio 12.3 (10.0-20.0); Bilirubin, Total 0.6 mg/dL (0.2-1.0); Calcium 9.1 mg/dL (8.7-10.4); Carbon Dioxide 26 mmol/L (20-31); Chloride 106 mmol/L (98-107); Potassium 3.6 mmol/L (3.5-5.1); Sodium 142 mmol/L (136-145); Total Protein 6.9 g/dL (5.7-8.2)
[2024-12-22 07:58] LABS: Alanine Aminotransferase 67 U/L (7-40); Blood Urea Nitrogen 9 mg/dL (9-23); Glucose 124 mg/dL (74-106)
[2024-12-22 08:00] LABS: Triglycerides 102 mg/dL (< 150)
[2024-12-22 08:02] LABS: Cholesterol 152 mg/dL (< 200); HDL Cholesterol 38 mg/dL (40-59)
[2024-12-22] MEDS: ENOXAPARIN SOD 40 MG/0.4 ML SYRINGE SC SCH (08:35)
--- NOTE | 2024-12-22 18:18 | DVHPN2 ---
[facility] Admitted overnight for chest pain. Pain has improved. Changes from previous H/P or p: No Changes Objective Vitals Vital Signs Date Time Temp Pulse Resp B/P (MAP) Pulse Ox O2 Delivery O2 Flow Rate FiO2 12/22/24 17:06 98.3 70 18 105/71 (82) 95 98.3 12/22/24 07:45 Room Air* 0 21 Exam Alert awake oriented x3. HEENT neck supple no JVD. Heart regular rate and rhythm S1-S2. Lungs fair air movement without rales wheezes. Abdomen soft nontender positive bowel sounds. Extremities no edema positive pulses Medications Current Medications Medications Dose Ordered Sig/Elia Route Start Time Stop Time Status Last Admin Dose Admin Ondansetron HCl 4 mg Q4HP PRN IV 12/21/24 22:45 12/22/24 02:10 4 MG Enoxaparin Sodium 40 mg DAILY SC 12/22/24 10:00 12/22/24 08:35 40 MG Nitroglycerin 0.4 mg Q5MINP PRN SL 12/21/24 22:45 12/22/24 02:22 0.4 MG Morphine Sulfate 2 mg Q30M PRN IV 12/21/24 22:45 12/22/24 02:14 2 MG Lisinopril 10 mg DAILY PO 12/23/24 10:00 Morphine Sulfate 2 mg Q6HPRN PRN IV 12/22/24 14:15 12/22/24 14:33 2 MG Laboratory Results Laboratory Tests 12/22/24 06:47 Chemistry Test 12/22/24 06:47 Albumin 4.3 g/dL (3.2-4.8) Calcium Level 9.1 mg/dL (8.7-10.4) Total Protein 6.9 g/dL (5.7-8.2) Lipid panel Test 12/22/24 06:47 Cholesterol Level 152 mg/dL (< 200) HDL Cholesterol 38 mg/dL (40-59) L Triglycerides Level 102 mg/dL (< 150) LFT Test 12/22/24 06:47 Alanine Aminotransferase (ALT) 67 U/L (7-40) H Alkaline Phosphatase 83 U/L (46-116) Aspartate Amino Transferase (AST) 42 U/L (13-40) H Total Bilirubin 0.6 mg/dL (0.2-1.0) HgA1c, TSH Test 12/22/24 06:47 Hemoglobin A1c 6.8 % A1C (<5.7) H Urinalysis Test 12/21/24 21:30 Urine Color Colorless (Yellow) Urine Clarity Clear (Clear) Urine pH 6.0 (5.0-9.0) Urine Specific [place] 1.007 (1.001-1.035) Urine Protein Negative (Negative) Urine Ketones Negative (Negative) Urine Blood 2+ /uL (Negative) H Urine Nitrite Negative (Negative) Urine Bilirubin Negative (Negative) Urine Urobilinogen Normal mg/dL (Negative) Urine Leukocyte Esterase Negative /uL (Negative) Urine RBC 1 /hpf (0 - 4) Urine Microscopic WBC /HPF (0-5) Urine Squamous Epithelial Cells Few /hpf (<5) Urine Bacteria None seen /hpf (None Seen) Urine Glucose Normal mg/dL (Normal) Urine Test Negative (Negative) Assessment/Plan Assessment/Plan Chest pain rule out ACS Asthma Hypertension Mild Transaminitis Hypercholesterolemia Patient is clinically stable. I will start her on proton pump inhibitor possible GERD symptoms. We will order echocardiogram. Cardiac consultation. Follow the LFTs. Otherwise continue rest of supportive care and treatment and further clinical management per clinical course. Discussed with the nurse. Plan discussed with: Other My Orders Orders - KEENA CHURCHILL MD Procedure Category Date Status Time Cardiac DIET 12/22/24 Transmitted Diet-2gna,Lofat,Lochol Lunch Morphine Sulfate PHA 12/22/24 In Process Injection 14:15 Date of Service: Dec 22, 2024 Billing Provider: KEENA CHURCHILL MD Common Visit Codes: [id number] INP/OBS CARE(MOD) KEENA CHURCHILL MD Dec 22, 2024 18:18
[2024-12-22] MEDS: PANTOPRAZOLE 40 MG/10 ML VIAL INJ IV SCH (21:27)
[2024-12-23] VITALS (9 sets, daily range): BP systolic 119–141; BP diastolic 74–84; PULSE 62–102; RESP 14–20; TEMP 97.4–98.4; O2SAT 94–98
[2024-12-23] MEDS: LISINOPRIL 5 MG TAB PO SCH (08:32)
[2024-12-23 08:42] LABS: Alkaline Phosphatase 87 U/L (46-116); Anion Gap 11 (5-15); BUN/Creatinine Ratio 8.8 (10.0-20.0); Calcium 8.9 mg/dL (8.7-10.4); Carbon Dioxide 26 mmol/L (20-31); Chloride 103 mmol/L (98-107); Lipase 48 U/L (12-53); Potassium 4.0 mmol/L (3.5-5.1); Sodium 140 mmol/L (136-145); Total Protein 7.3 g/dL (5.7-8.2)
[2024-12-23 08:43] LABS: Albumin 4.2 g/dL (3.2-4.8); Bilirubin, Total 0.6 mg/dL (0.2-1.0)
[2024-12-23 08:44] LABS: Alanine Aminotransferase 70 U/L (7-40); Blood Urea Nitrogen 6 mg/dL (9-23); Glucose 144 mg/dL (74-106)
--- NOTE | 2024-12-23 11:36 | DVHINCON2 ---
Date Seen: Dec 23, 2024 Referring Physician MD Kulwinder Reason for Consultation Chest pain History of Present Illness This is a Albanian-speaking 49-year-old female patient who presents to the emergency room with chief complaint of chest pain. The patient reports that the chest pain began approximately four days prior to emergency room arrival. She describes the pain as unprovoked, constant, tight in nature, substernal with radiation down her left arm and shoulder. She denies any alleviation with positional changes. Alleviating factors include nitroglycerin and morphine. Aggravating factors include exertion. Associated symptoms include shortness of breath. 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 A twelve lead electrocardiogram was ordered and obtained at time of assessment and reveals normal sinus rhythm without any significant ST segment changes. Serial troponin levels have been negative. Significant past medical history includes hypertension, ASD status post closure, asthma, type 2 diabetes mellitus, kidney stones, and obesity. The patient states that she has not followed up with a commission broker in approximately six years. She denies any previous cardiac workup such as stress test or coronary angiogram. Past Medical History Past medical history reviewed. No other significant than mentioned above. Past Surgical History Cholecystectomy Atrial septal defect closure Dilation in curettage, hysteroscopy and endometrial ablation in 2014 Family History: Diabetes mellitus G8 MOTHER, FH: pancreatic cancer Family history: Diabetes mellitus G8 MOTHER, Family History Family history reviewed. Social History Denies the use of tobacco, alcohol or illicit drugs. Allergies: Coded Allergies: Hydralazine (Verified Allergy, Intermediate, 09/10/19) Itching and redness around hands and face. Povidone Iodine (Verified Allergy, Intermediate, BLISTERS, 12/07/19) Home Meds Active Scripts Alum & Mag Hydrox-Simethicone (Maalox Plus) 30 Ml Ss, 30 ML GT DAILY for 20 Days, #100 ML Prov:GRACIELA GARCIA MD 12/05/24 Famotidine (PEPCID TABLET) 20 Mg Tb, 1 TAB PO DAILY, #40 TAB 5 Refills Prov:GRACIELA GARCIA MD 12/05/24 Alum & Mag Hydrox-Simethicone (Mylanta Maximum Strength 400-400-40 mg/5Ml) 1 Lelo Lelo, 1 LELO PO AC PRN for 30 Days, #120 ML Prov:ALEXANDREA CARLTON MD 12/05/24 Famotidine (Gnp Acid Web Administrator Maximum) 20 Mg Tab, 1 TAB PO DAILY for 30 Days, #30 TAB 3 Refills Prov:ALEXANDREA CARLTON MD 12/05/24 Aluminum Hydroxide-Mag Carb (Gaviscon Extra Strength) 1 Chw Chw, 1 CHW PO Q.I.D. for 10 Days, #40 TAB.CHEW Prov:EUGENIO GREGORIO MD 08/22/24 Metoclopramide Hcl (Reglan) 10 Mg Tab, 10 MG PO T.I.D. for 10 Days, #30 TAB Prov:EUGENIO GREGORIO MD 08/22/24 Methocarbamol (Methocarbamol) 500 Mg Tab, 1000 MG PO Q8HP PRN, #30 TAB prn neck pain/muscle spasm Prov:SARMAD CRISTOBAL MD 05/09/24 Hydrocodone-Acetaminophen (Hydrocodone Bitartrate/AC 5-325 mg) 1 Tab Tab, 1 TAB PO Q8HP PRN for 2 Days, #6 TAB Prov:ASHLEIGH CALVILLO MD 05/09/24 Nitrofurantoin Monohydrate Mac (Macrobid) 100 Mg Cap, 100 MG PO BID for 7 Days, #14 CAP Prov:EMI DUNCAN DO 04/13/24 Meclizine HCl (Meclizine 25) 25 Mg Tab, 25 MG PO TIDPRN PRN for 3 Days, #9 TAB Prov:EMI DUNCAN DO 04/13/24 Naproxen (NAPROSYN TABLET) 500 Mg Tb, 1 TAB PO BIDPC for 14 Days, #28 TAB 0 Refills Prov:TREVOR COLMENARES NP 10/26/23 Albuterol Sulfate (Albuterol Sulfate) 0.083 % Neb, 1 VIAL NEB Q4HPRN for 7 Days, #50 VIAL Prov:BERLIN FAIR MD 09/04/23 Fluticasone-Salmeterol (Advair Diskus 250/50) 1 Puff Ih, 1 PUFF INH BID for 30 Days, #1 INHALER 5 Refills Prov:BERLIN FAIR MD 09/04/23 Albuterol Sulfate (VENTOLIN MDI) 90 Mcg Ih, 90 MCG IN Q6HPRN PRN, #1 INH Prov:BERLIN FAIR MD 09/04/23 Levofloxacin Hemihydrate (LEVAQUIN 500 MG) 500 Mg Tab, 1 TAB PO DAILY for 5 Days, #5 TAB Prov:BERLIN FAIR MD 09/04/23 Prednisone (Prednisone) 10 Mg Tab, 10 MG PO as directed- PRN, #18 MG Prov:BERLIN FAIR MD 09/04/23 Albuterol Sulfate (VENTOLIN MDI) 90 Mcg Ih, 90 MCG IN Q6HP PRN for 7 Days, #1 MCG Prov:GERTRUDIS MARCH MD 09/11/21 Reported Medications Albuterol Sulfate (VENTOLIN MDI) 90 Mcg Ih, 2 PUFF IN Q6HP PRN for SHORTNESS OF BREATH, INH 12/04/19 Home Meds Home medications reviewed. Current Medications Current Medications Medications (Trade) Dose Ordered Sig/Elia Route PRN Reason Start Time Stop Time Status Last Admin Lisinopril (Zestril Tablet) 10 mg DAILY PO 12/23/24 10:00 12/23/24 08:32 Morphine Sulfate 2 mg Q6HPRN PRN IV SEVERE PAIN (7-10 PAIN SCALE) 12/22/24 14:15 12/23/24 08:34 Pantoprazole Sodium (Protonix) 40 mg BID IV 12/22/24 22:00 12/23/24 08:32 Aspirin 81 mg DAILY PO 12/23/24 10:00 12/23/24 08:34 Review of Systems Constitutional: No symptom reported Ears, Nose, & Throat: No symptom reported Eyes: No symptom reported Neurological: No symptoms reported Pulmonary/Respiratory: No symptoms reported Cardiovascular: Chest pain Gastrointestinal: No symptom reported Genitourinary: No symptom reported Musculoskeletal: No symptom reported Skin: No symptom reported Psychiatric: No symptom reported Endocrine: No symptom reported Hematologic/Lymphatic: No symptom reported Vital Signs Vital Signs Date Time Temp Pulse Resp B/P (MAP) Pulse Ox O2 Delivery O2 Flow Rate FiO2 12/23/24 09:00 97.4 80 18 141/76 (97) 98 97.4 12/23/24 07:30 Room Air* 0 21 Physical Exam General Appearance: Cooperative. Well-developed. Well-nourished. No acute distress. Pulmonary/Respiratory: Clear, bilateral breaths sounds. Cardiovascular/Chest: Regular rate and rhythm. Peripheral Pulses: 2+ Radial (R). 2+ Radial (L). 2+ Pedal (R). 2+ Pedal (L) Abdominal Exam: Normal bowel sounds. Ankle Exam: Negative ankle edema Lower extremities: Negative lower extremity edema Neuro/Mental Status: A/OX4, coherent. Thoughts/Psych: Normal thought pattern. Appropriate mood and affect. Good judgment and insight. Appearance: No acute distress. Skin Exam: Normal inspection. Normal color. Warm and dry. Labs/Diagnostic Data Labs Test 12/23/24 06:51 12/22/24 18:28 12/22/24 06:47 12/21/24 21:30 Range/Units Sodium Level 140 136-145 mmol/L Potassium Level 4.0 3.5-5.1 mmol/L Chloride Level 103 98-107 mmol/L Carbon Dioxide Level 26 20-31 mmol/L Anion Gap 11 5-15 Blood Urea Nitrogen 6 L 9-23 mg/dL Creatinine 0.68 0.550-1.02 mg/dL Glomerular Filtration Rate Calc 107 >90 mL/min BUN/Creatinine Ratio 8.8 L 10.0-20.0 Serum Glucose 144 H 74-106 mg/dL Calcium Level 8.9 8.7-10.4 mg/dL Total Bilirubin 0.6 0.2-1.0 mg/dL Aspartate Amino Transferase (AST) 38 13-40 U/L Alanine Aminotransferase (ALT) 70 H 7-40 U/L Alkaline Phosphatase 87 46-116 U/L Troponin I High Sensitivity < 3 L </=34 ng/L Total Protein 7.3 5.7-8.2 g/dL Albumin 4.2 3.2-4.8 g/dL Lipase 48 12-53 U/L D-Dimer, Quantitative 0.23 0.0-0.49 mg/L FEU White Blood Count 7.3 4.4-10.8 10^3/uL Red Blood Count 4.83 4.0-5.20 10^6/uL Hemoglobin 14.1 12.2-16.2 g/dL Hematocrit 40.6 36.0-46.0 % Mean Corpuscular Volume 84.2 80.0-100.0 fL Mean Corpuscular Hemoglobin 29.3 28.0-32.0 pg Mean Corpuscular Hemoglobin Concent 34.8 32.0-36.0 g/dL Red Cell Distribution Width 14.0 11.8-14.3 % Platelet Count 374 140-450 10^3/uL Mean Platelet Volume 8.2 6.9-10.8 fL Neutrophils (%) (Auto) 48.3 37.0-80.0 % Lymphocytes (%) (Auto) 38.8 10.0-50.0 % Monocytes (%) (Auto) 8.6 0.0-12.0 % Eosinophils (%) (Auto) 3.8 0.0-7.0 % Basophils (%) (Auto) 0.5 0.0-2.0 % Neutrophils # (Auto) 3.5 1.6-8.6 10 ^3/uL Lymphocytes # (Auto) 2.9 0.4-5.4 10 ^3/uL Monocytes # (Auto) 0.6 0-1.3 10 ^3/uL Eosinophils # (Auto) 0.3 0-0.8 10 ^3/uL Basophils # (Auto) 0 0-0.2 10 ^3/uL Nucleated Red Blood Cells 0.0 % Hemoglobin A1c 6.8 H <5.7 % A1C Triglycerides Level 102 < 150 mg/dL Cholesterol Level 152 < 200 mg/dL LDL Cholesterol 107 H < 100 mg/dL HDL Cholesterol 38 L 40-59 mg/dL Urine Color Colorless Yellow Urine Clarity Clear Clear Urine pH 6.0 5.0-9.0 Urine Specific [place] 1.007 1.001-1.035 Urine Protein Negative Negative Urine Ketones Negative Negative Urine Blood 2+ H Negative /uL Urine Nitrite Negative Negative Urine Bilirubin Negative Negative Urine Urobilinogen Normal Negative mg/dL Urine Leukocyte Esterase Negative Negative /uL Urine RBC 1 0 - 4 /hpf Urine Microscopic WBC 0-5 /HPF Urine Squamous Epithelial Cells Few <5 /hpf Urine Bacteria None seen None Seen /hpf Urine Glucose Normal Normal mg/dL Urine Test Negative Negative Test 12/21/24 17:55 Range/Units B-Type Natriuretic Peptide 19.67 0-100 pg/mL Assessment Chest pain, rule out coronary ischemia Hypertensive urgency Rule out structural heart disease Atrial septal defect (ASD) status post closure Hyperlipidemia, newly diagnosed Asthma Type 2 diabetes mellitus Obesity Plan/Recommendation We will continue following plan/recommendations (Dr. Way): * Transthoracic echocardiogram to evaluate cardiac function * Chest pain protocol * HEART score: 3 points * Blood pressure control * Lipid-lowering agent; monitor LFTs * Close Cardiac surveillance * Cardiolite stress test Case discussed with . Given the patient's clinical presentation and comorbidities, the patient was offered a Cardiolite stress test. The patient agreeable. We will schedule the patient for soonest availability on 12/24/2024. In the meantime continue with medical management. Notify Cardiology for any ECG changes. Thank you for allowing us to care for this patient. Please call with any questions or concerns. Critical care time spent: 44 minutes This medical document was created using an electronic medical record system with voice recognition software and computerized dictation system. Although this document has been carefully reviewed, there might still be some phonetic and typographical errors. Occasional wrong-word or ``sound-alike substitutions may have occurred due to the inherent limitations of voice recognition software. These areas are purely typographical due to imperfections of the software programs and do not reflect any compromise in the patient's medical care. Please read the chart carefully and recognize, using context, where these substitutions have occurred. Plan discussed with: Patient NYHA Physical activity limitations: NA Date of Service: Dec 23, 2024 Billing Provider: MICHELLE NARAYANAN Cardiology Common Codes: [id number] INP/OBS CARE (High) Cardiology Consultation Codes: [id number] CONSULT <45MIN MICHELLE NARAYANAN Dec 23, 2024 11:36
--- NOTE | 2024-12-23 17:18 | DVHPN2 ---
[facility]. Evaluated by head porter scheduled for stress test for tomorrow Changes from previous H/P or p: No Changes Objective Vitals Vital Signs Date Time Temp Pulse Resp B/P (MAP) Pulse Ox O2 Delivery O2 Flow Rate FiO2 12/23/24 13:00 98.2 71 16 123/84 (97) 97 98.2 12/23/24 07:30 Room Air* 0 21 Intake/Output Intake and Output 12/23/24 07:00 Intake Total 200 ml Balance 200 ml Intake Oral 200 ml # Voids 9 Exam Alert awake oriented x3. HEENT neck supple no JVD. Heart regular rate and rhythm S1-S2. Lungs fair air movement without rales wheezes. Abdomen soft nontender positive bowel sounds. Extremities no edema positive pulses Medications Current Medications Medications Dose Ordered Sig/Elia Route Start Time Stop Time Status Last Admin Dose Admin Ondansetron HCl 4 mg Q4HP PRN IV 12/21/24 22:45 12/22/24 02:10 4 MG Enoxaparin Sodium 40 mg DAILY SC 12/22/24 10:00 12/23/24 08:33 40 MG Nitroglycerin 0.4 mg Q5MINP PRN SL 12/21/24 22:45 12/22/24 02:22 0.4 MG Morphine Sulfate 2 mg Q30M PRN IV 12/21/24 22:45 12/22/24 21:29 2 MG Lisinopril 10 mg DAILY PO 12/23/24 10:00 12/23/24 08:32 10 MG Morphine Sulfate 2 mg Q6HPRN PRN IV 12/22/24 14:15 12/23/24 08:34 2 MG Pantoprazole Sodium 40 mg BID IV 12/22/24 22:00 12/23/24 08:32 40 MG Aspirin 81 mg DAILY PO 12/23/24 10:00 12/23/24 08:34 81 MG Atorvastatin Calcium 20 mg HS PO 12/23/24 22:00 Laboratory Results Laboratory Tests 12/22/24 06:47 12/23/24 06:51 Chemistry Test 12/23/24 06:51 Albumin 4.2 g/dL (3.2-4.8) Calcium Level 8.9 mg/dL (8.7-10.4) Total Protein 7.3 g/dL (5.7-8.2) Coagulation Test 12/22/24 18:28 D-Dimer, Quantitative 0.23 mg/L FEU (0.0-0.49) Lipid panel Test 12/23/24 06:51 Lipase 48 U/L (12-53) LFT Test 12/23/24 06:51 Alanine Aminotransferase (ALT) 70 U/L (7-40) H Alkaline Phosphatase 87 U/L (46-116) Aspartate Amino Transferase (AST) 38 U/L (13-40) Total Bilirubin 0.6 mg/dL (0.2-1.0) Urinalysis Test 12/21/24 21:30 Urine Color Colorless (Yellow) Urine Clarity Clear (Clear) Urine pH 6.0 (5.0-9.0) Urine Specific [place] 1.007 (1.001-1.035) Urine Protein Negative (Negative) Urine Ketones Negative (Negative) Urine Blood 2+ /uL (Negative) H Urine Nitrite Negative (Negative) Urine Bilirubin Negative (Negative) Urine Urobilinogen Normal mg/dL (Negative) Urine Leukocyte Esterase Negative /uL (Negative) Urine RBC 1 /hpf (0 - 4) Urine Microscopic WBC /HPF (0-5) Urine Squamous Epithelial Cells Few /hpf (<5) Urine Bacteria None seen /hpf (None Seen) Urine Glucose Normal mg/dL (Normal) Urine Test Negative (Negative) Assessment/Plan Assessment/Plan Chest pain rule out ACS Asthma Hypertension Mild Transaminitis Hypercholesterolemia Patient is clinically stable. LFTs have improved. Evaluated by Cardiology and proceed with a stress test as scheduled for tomorrow. Otherwise further clinical management per clinical course. Discussed with the nurse. Plan discussed with: Other My Orders Orders - KEENA CHURCHILL MD Procedure Category Date Status Time * Cardiology Consult CONS 12/22/24 Transmitted 18:14 Pantoprazole PHA 12/22/24 In Process (Protonix) 22:00 Aspirin Tablet PHA 12/23/24 In Process 10:00 Urinalysis LAB 12/22/24 Logged 18:17 Drug Screen LAB 12/22/24 Logged 18:17 Date of Service: Dec 23, 2024 Billing Provider: KEENA CHURCHILL MD Common Visit Codes: [id number] INP/OBS CARE(MOD) KEENA CHURCHILL MD Dec 23, 2024 17:18
[2024-12-23] MEDS: ATORVASTATIN 20 MG TAB PO SCH (21:37)
[2024-12-24 01:00] VITALS: BP 128/81; PULSE 72; RESP 18; TEMP 98; O2SAT 94
[2024-12-24 05:52] VITALS: BP 131/77; PULSE 85; RESP 20; TEMP 98.6; O2SAT 98
--- NOTE | 2024-12-24 07:38 | ECG ---
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
[2024-12-24 08:10] VITALS: PULSE 71
--- NOTE | 2024-12-24 08:20 | DVHSR ---
APPROVED REPORT EXAM: Two-dimensional and M-mode echocardiogram with Doppler and color Doppler. Blood Pressure: 136/76 mmHg INDICATION Chest Pain RISK FACTORS Height: 63, Weight: 203 DIMENSIONS LVDd4.4 (3.8-5.7cm)LA (2D) (1.9-4.0cm)Aortic Root3.2 (2.0-3.7cm) LVDs3.1 (2.5-4.0cm)LA (MM) (1.9-4.0cm)Aortic Cusp Exc1.7 (1.5-2.0cm) EF (%) 56.0 (55-70%)Rt. Atrium (1.9-4.0cm)Asc. Aorta cm Mitral Valve MitralMitral Stenosis E wave0.55m/sMV Mean GR.mmHg A wave0.57m/sMV Peak GR.mmHg E/A ratio1.02D MVAcm2 DECEL [id number] 1/2 Euld42xd IVRTmsDop MVA2.77cm2 Aortic Valve Aortic ValveAortic Stenosis V11.15m/Octavio Mean GR.6mmHg V21.52m/Octavio Peak GR.9mmHg LVOT Diameter1.9 (1.8-2.4cm)Doppler AVA2.14cm2 Pulmonic Valve V20.94m/s Tricuspid Valve TR Velocity2.30m/s [id number] Other Information Technically limited study due to body habitus. Conclusion lvef 60% grade 1 diastolic dysfunction normal RV functoin normla atria no severe valve abnormalities noted
--- NOTE | 2024-12-24 08:24 | ECG ---
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
[2024-12-24 09:00] VITALS: BP 121/84; PULSE 68; RESP 17; TEMP 98; O2SAT 96
--- NOTE | 2024-12-24 11:29 | DVHSR ---
APPROVED REPORT Exam: Nuclear Stress Test BMI: 0 Stress Test Details HR Max Heart Rate (APMHR): 172.743903 bpm Target HR (85% APMHR): 146.149577 bpm BP ECG Stress ECG Conclusion lvef 75% normal perfus on scan no major ischemia NM EXAM: Myocardial Perfusion REST/STRESS Imaging Protocol: Rest Tc-99m/Stress Tc-99m 1 day Resting Data Rest SPECT myocardial perfusion imaging was performed in supine position 60 minutes following the int ravenous injection of 9.5 mCi of Tc-99m Sestamibi. Time of rest injection: 07:50 Date: 12/24/2024 Time of rest imagin:50 Date: 12/24/2024 Administration Route: IV Administration Site: Right Arm Exercise Stress At peak stress, the patient was injected intravenously with 33.0mCi of Tc-99m Sestamibi. Time of stress injection: 09:20 Date: 12/24/2024 Time of stress imagin:50 Date: 12/24/2024 Administration Route: IV Administration Site: Right Arm Gated Stress SPECT was performed 30 minutes after stress injection. The images were gated to evaluate regional wall motion and calculate left ventricular ejection fracti on. Stress only was performed in the Supine position. Nuclear Conclusion Nuclear Findings: negative for ischemia lvef 75% normal perfus on scan no major ischemia
--- NOTE | 2024-12-24 11:41 | DVHCARD ---
Cardiology Stress Test [place] Treadmill Stress Test [place] Referring MD: AGUSTÍN Elmore Protocol: David (with cardiolite) Reason for referral: Chest Pain Target heart Rate:@85%: 146 Percent MPHR: 172 METS: 10.10 Resting Heart rate: 73 Resting Blood Pressure: 140/86 Exercise Heart Rate: 142 Exercise Blood Pressure: 195/98 Reason for Termination of Test: Completion of Protocol Baseline EKG: Sinus rhythm with notches p-waves Stress EKG: Sinus tachycardia w/o evidence of ST-T segment changes Functional Capacity: Good Normal Heart Rate Response: Adequate Blood Pressure Response: Hypertensive Clinical response: Non-ischemic Arrhythmia?: No Cardiolite Injected?: Yes ST-T Changes: Non/Minimal Probability of Inducible Ische: Perfusion result pending Comments: Uneventful stress test Date of Service: Dec 24, 2024 Billing Provider: YODIT HARKINS Cardiology Common Codes: PROCEDURE ONLY Treadmill W/Cardiolite Nuclear: [id number], INTERP, RPT YODIT HARKINS Dec 24, 2024 11:41
--- NOTE | 2024-12-24 11:52 | DVHPN2 ---
Progress Note Date Seen: Dec 24, 2024 Medical Necessity Reason Pt with a Central, PICC or Fol: No Subjective Patient reports: Feels better Objective vital signs Vital Sign Date Time Temp Pulse Resp B/P (MAP) Pulse Ox O2 Delivery O2 Flow Rate FiO2 12/24/24 10:51 121/84 12/24/24 09:00 98.0 68 17 96 98.0 12/23/24 20:00 Room Air* 0 21 Total Intake and Output 12/23/24 12/23/24 12/24/24 15:00 23:00 07:00 Intake Total 500 ml 400 ml Balance 500 ml 400 ml medications Current Medications Medications Dose Ordered Sig/Elia Route Start Time Stop Time Status Last Admin Dose Admin Ondansetron HCl 4 mg Q4HP PRN IV 12/21/24 22:45 12/22/24 02:10 4 MG Enoxaparin Sodium 40 mg DAILY SC 12/22/24 10:00 12/24/24 10:50 40 MG Nitroglycerin 0.4 mg Q5MINP PRN SL 12/21/24 22:45 12/22/24 02:22 0.4 MG Morphine Sulfate 2 mg Q30M PRN IV 12/21/24 22:45 12/22/24 21:29 2 MG Lisinopril 10 mg DAILY PO 12/23/24 10:00 12/24/24 10:51 10 MG Morphine Sulfate 2 mg Q6HPRN PRN IV 12/22/24 14:15 12/23/24 19:56 2 MG Pantoprazole Sodium 40 mg BID IV 12/22/24 22:00 12/24/24 10:49 40 MG Aspirin 81 mg DAILY PO 12/23/24 10:00 12/24/24 10:51 81 MG Atorvastatin Calcium 20 mg HS PO 12/23/24 22:00 12/23/24 21:37 20 MG Examination: GENERAL:Abnormal, HEENT:Abnormal, LUNGS:Abnormal, CVS:Abnormal, ABDOMEN:Abnormal laboratory and microbiology Laboratory Tests 12/23/24 06:51 12/22/24 06:47 Test 12/23/24 06:51 Range/Units Serum Glucose 144 H 74-106 mg/dL Problem List/Assessment/Plan Problem List/Assessment/Plan Chest pain, rule out coronary ischemia Hypertensive urgency Rule out structural heart disease Atrial septal defect (ASD) status post closure Hyperlipidemia, newly diagnosed Asthma Type 2 diabetes mellitus no ischemia no stress mpi outpt fu dc home when medically stable Plan discussed with: Patient Date of Service: Dec 24, 2024 Billing Provider: DONNA GIBSON MD Common Visit Codes: NOT BILLABLE DONNA GIBSON MD Dec 24, 2024 11:52
[2024-12-24 13:00] VITALS: BP 132/79; PULSE 76; RESP 17; TEMP 97.9; O2SAT 97
[2024-12-24] MEDS ORDERED: ATOR20TA50 PO (15:41)
[2024-12-24] MEDS ORDERED: PANT40TA57 PO (15:41)
--- NOTE | 2024-12-24 15:43 | DVHDS2 ---
Discharge Summary Date of Admission Dec 21, 2024 at 22:40 Date of Discharge: Dec 24, 2024 Labs/Diagnostic Data: Laboratory Results Test 12/23/24 06:51 12/22/24 18:28 12/22/24 06:47 12/21/24 21:30 Sodium Level 140 mmol/L (136-145) Potassium Level 4.0 mmol/L (3.5-5.1) Chloride Level 103 mmol/L (98-107) Carbon Dioxide Level 26 mmol/L (20-31) Anion Gap 11 (5-15) Blood Urea Nitrogen 6 mg/dL (9-23) Creatinine 0.68 mg/dL (0.550-1.02) Glomerular Filtration Rate Calc 107 mL/min (>90) BUN/Creatinine Ratio 8.8 (10.0-20.0) Serum Glucose 144 mg/dL (74-106) Calcium Level 8.9 mg/dL (8.7-10.4) Total Bilirubin 0.6 mg/dL (0.2-1.0) Aspartate Amino Transferase (AST) 38 U/L (13-40) Alanine Aminotransferase (ALT) 70 U/L (7-40) Alkaline Phosphatase 87 U/L (46-116) Troponin I High Sensitivity < 3 ng/L (</=34) Total Protein 7.3 g/dL (5.7-8.2) Albumin 4.2 g/dL (3.2-4.8) Lipase 48 U/L (12-53) D-Dimer, Quantitative 0.23 mg/L FEU (0.0-0.49) White Blood Count 7.3 10^3/uL (4.4-10.8) Red Blood Count 4.83 10^6/uL (4.0-5.20) Hemoglobin 14.1 g/dL (12.2-16.2) Hematocrit 40.6 % (36.0-46.0) Mean Corpuscular Volume 84.2 fL (80.0-100.0) Mean Corpuscular Hemoglobin 29.3 pg (28.0-32.0) Mean Corpuscular Hemoglobin Concent 34.8 g/dL (32.0-36.0) Red Cell Distribution Width 14.0 % (11.8-14.3) Platelet Count 374 10^3/uL (140-450) Mean Platelet Volume 8.2 fL (6.9-10.8) Neutrophils (%) (Auto) 48.3 % (37.0-80.0) Lymphocytes (%) (Auto) 38.8 % (10.0-50.0) Monocytes (%) (Auto) 8.6 % (0.0-12.0) Eosinophils (%) (Auto) 3.8 % (0.0-7.0) Basophils (%) (Auto) 0.5 % (0.0-2.0) Neutrophils # (Auto) 3.5 10 ^3/uL (1.6-8.6) Lymphocytes # (Auto) 2.9 10 ^3/uL (0.4-5.4) Monocytes # (Auto) 0.6 10 ^3/uL (0-1.3) Eosinophils # (Auto) 0.3 10 ^3/uL (0-0.8) Basophils # (Auto) 0 10 ^3/uL (0-0.2) Nucleated Red Blood Cells 0.0 % Hemoglobin A1c 6.8 % A1C (<5.7) Triglycerides Level 102 mg/dL (< 150) Cholesterol Level 152 mg/dL (< 200) LDL Cholesterol 107 mg/dL (< 100) HDL Cholesterol 38 mg/dL (40-59) Urine Color Colorless (Yellow) Urine Clarity Clear (Clear) Urine pH 6.0 (5.0-9.0) Urine Specific [place] 1.007 (1.001-1.035) Urine Protein Negative (Negative) Urine Ketones Negative (Negative) Urine Blood 2+ /uL (Negative) Urine Nitrite Negative (Negative) Urine Bilirubin Negative (Negative) Urine Urobilinogen Normal mg/dL (Negative) Urine Leukocyte Esterase Negative /uL (Negative) Urine RBC 1 /hpf (0 - 4) Urine Microscopic WBC /HPF (0-5) Urine Squamous Epithelial Cells Few /hpf (<5) Urine Bacteria None seen /hpf (None Seen) Urine Glucose Normal mg/dL (Normal) Urine Test Negative (Negative) Test 12/21/24 17:55 B-Type Natriuretic Peptide 19.67 pg/mL (0-100) Other Laboratory Tests 12/23/24 06:51 12/22/24 06:47 Brief Hx & Hospital Course: 49-year-old female with previous history of asthma presents to the ER with sudden onset, intermittent central chest pain since last 4 days. The chest pain has no relation with breathing or movement. Patient has a history of cardiac surgery during childhood, possibly due to congenital patent foramen ovale or VSD. Patient is found to have hyperglycemia and high blood pressure in the ER, however patient is not aware of having hypertension or diabetes mellitus. However for borderline high glucose she used to exercise and healthy food according to doctor's advice. She denies any fever, shortness of breaths, abdominal pain, nausea, vomiting or diarrhea. She denies any recent travel history or sick contacts. She is admitted and had serial cardiac enzymes which were normal. Patient remained pain-free in the hospital. She is evaluated by cutter gas underwent a Cardiolite stress test did not reveal any acute reversible ischemia. Given her cardiac workup is being unremarkable felt her symptoms could be GI related with possible gastroesophageal reflux disease. Patient empirically treated with a proton pump inhibitor. Otherwise patient remained pain-free and feeling better back to normal baseline status. Having necessary workup and evaluations and patient feeling better it is felt she could be safely discharged home. I have talked with the patient regarding her hospital diagnosis, stress test results, discharge medications, discharge instructions and follow-up plan of care. She has verbalized understanding of these and agree with the care plan as outlined Operations or Procedures PROCEDURE(s): CWMM - CARDIOLITE MULTIPLE REASON: Chest pain ORDER NUMBER(s): [id number], ACCESSION NUMBER(s): [id number] APPROVED REPORT Exam: Nuclear Stress Test BMI: 0 Stress Test Details HR Max Heart Rate (APMHR): 172.063136 bpm Target HR (85% APMHR): 146.494187 bpm BP ECG Stress ECG Conclusion lvef 75% normal perfus on scan no major ischemia NM EXAM: Myocardial Perfusion REST/STRESS Imaging Protocol: Rest Tc-99m/Stress Tc-99m 1 day Resting Data Rest SPECT myocardial perfusion imaging was performed in supine position 60 minutes following the intravenous injection of 9.5 mCi of Tc-99m Sestamibi. Time of rest injection: 07:50 Date: 12/24/2024 Time of rest imagin:50 Date: 12/24/2024 Administration Route: IV Administration Site: Right Arm Exercise Stress At peak stress, the patient was injected intravenously with 33.0mCi of Tc-99m Sestamibi. Time of stress injection: 09:20 Date: 12/24/2024 Time of stress imagin:50 Date: 12/24/2024 Administration Route: IV Administration Site: Right Arm Gated Stress SPECT was performed 30 minutes after stress injection. The images were gated to evaluate regional wall motion and calculate left ventricular ejection fraction. Stress only was performed in the Supine position. Nuclear Conclusion Nuclear Findings: negative for ischemia lvef 75% normal perfus on scan no major ischemia SIGNED BY: DONNA GIBSON MD SIGNED DATE/TIME: 12/24/24 1129 Condition at Discharge: Stable Final Diagnosis/Problems List Chest pain likely secondary to GERD status post negative Cardiolite stress test Asthma Hypertension Mild Transaminitis Hypercholesterolemia Discharge Disposition: Home Discharge Instruct/Medications Diet: Consistent carbohydrate, Cardiac 2g Na,low cholest Activity: No Restrictions, As Tolerated Follow Up/Referral: Primary care physician next week for further evaluation of your chest pain if any with a referral to patient support assistant Medications: To take the medications as prescribed and continue other medications per discharge home medication list Scheduled Albuterol Sulfate (Albuterol Sulfate), 1 VIAL NEB Q4HPRN Atorvastatin Calcium (Atorvastatin Calcium), 1 TAB PO DAILY Fluticasone-Salmeterol (Advair Diskus 250/50), 1 PUFF INH BID Pantoprazole Sodium Sesquihydr (Pantoprazole Sodium Dr), 40 MG PO BID Scheduled PRN Albuterol Sulfate (Ventolin Mdi), 2 PUFF IN Q6HP PRN for SHORTNESS OF BREATH, (Reported) Alum & Mag Hydrox-Simethicone (Mylanta Maximum Strength 400-400-40 mg/5Ml), 1 MACKENZIE PO AC PRN Hydrocodone-Acetaminophen (Hydrocodone Bitartrate/AC 5-325 mg), 1 TAB PO Q8HP PRN Meclizine HCl (Meclizine 25), 25 MG PO TIDPRN PRN Methocarbamol (Methocarbamol), 1,000 MG PO Q8HP PRN Discontinued Medications Albuterol Sulfate (Ventolin Mdi), 90 MCG IN Q6HP PRN Albuterol Sulfate (Ventolin Mdi), 90 MCG IN Q6HPRN PRN Alum & Mag Hydrox-Simethicone (Maalox Plus), 30 ML GT DAILY Aluminum Hydroxide-Mag Carb (Gaviscon Extra Strength), 1 CHW PO Q.I.D. Famotidine (Gnp Acid Braid Maker Maximum), 1 TAB PO DAILY Famotidine (Pepcid Tablet), 1 TAB PO DAILY Levofloxacin Hemihydrate (Levaquin 500 Mg), 1 TAB PO DAILY Metoclopramide Hcl (Reglan), 10 MG PO T.I.D. Naproxen (Naprosyn Tablet), 1 TAB PO BIDPC Nitrofurantoin Monohydrate Mac (Macrobid), 100 MG PO BID Prednisone (Prednisone), 10 MG PO as directed- PRN Discharge Statement: "Patient was advised to return to the ER or call 911 if any headaches, dizziness, shortness of breath, chest pain, abdominal pain, bleeding, fevers, or worsening of medical condition. Patient was counseled about treatment plan, medications, possible side effects, patientverbalized understanding. All questions were answered to the best of my ability. This discharge took greater then 30 minutes in planning, reviewing documentation, counseling the patient, and discussing with other team members." ASSESSMENT ASSESSMENT Assessment Chest pain likely secondary to GERD status post negative Cardiolite stress test Asthma Hypertension Mild Transaminitis Hypercholesterolemia Date of Service: Dec 24, 2024 Billing Provider: KEENA CHURCHILL MD Common Visit Codes: 45521-XMC/OBS DISCH DAY <30MIN KEENA CHURCHILL MD Dec 24, 2024 15:43
== END 2024-12-24 17:43 | disposition home or self-care (01) | DRG 243 ==
LOC: ER 17:36 → OVERFLOW 22:40 → TELE-WESTW 22:42
PROVIDERS: ADMIT Hospitalist; ATTEND Hospitalist
DX: K21.9 Gastro-esophageal reflux disease without esophagitis (principal); Q21.10 Atrial septal defect, unspecified; E11.65 Type 2 diabetes mellitus with hyperglycemia; E66.9 Obesity, unspecified; E78.00 Pure hypercholesterolemia, unspecified; J45.909 Unspecified asthma, uncomplicated; I10 Essential (primary) hypertension; E78.5 Hyperlipidemia, unspecified; I25.10 Atherosclerotic heart disease of native coronary artery without angina pectoris; I16.0 Hypertensive urgency; R74.01 Elevation of levels of liver transaminase levels; Z87.442 Personal history of urinary calculi; Z88.8 Allergy status to other drugs, medicaments and biological substances; Z90.49 Acquired absence of other specified parts of digestive tract; Z83.3 Family history of diabetes mellitus; Z80.0 Family history of malignant neoplasm of digestive organs; Z87.74 Personal history of (corrected) congenital malformations of heart and circulatory system; Z68.36 Body mass index [BMI] 36.0-36.9, adult
CPT/HCPCS: 36415; 71045; 78452; 80048; 80053; 80061; 81001; 81025; 83036; 83690; 83880; 84484; 85025; 85379; 93005; 93017; 93306; 96360; G0378; J2405; J2470